=== PATIENT | female | born 1960 | race Caucasian/White ===

== ENCOUNTER → 2017-07-23 | Day surgery (SDC) | payer OTHER, SELFPAY ==
[2017-07-22 15:33] VITALS: BMI 28.7
[~2017-07-23] MED LIST: Albuterol Sulfate 1.25 MG/3 ML NEB ONE; Diprivan 40 ML ONE; Fentanyl 100 MCG/2 ML VIAL ONE; Isoproterenol 0.2 MG/1 ML AMP ONE; Labetalol HCl 100 MG/20 ML VIAL ONE; Midazolam HCl 2 mg/2 ml Vial ONE; Ondansetron HCl/PF 4 MG/2 ML Vial IVP PRN; Ondansetron HCl/PF 4 MG/2 ML Vial ONE; Promethazine HCl 25 MG/ML VIAL IM/IV PRN; Propofol 200 MG/20 ML VIAL ONE; Propofol 500 MG/50 ML VIAL ONE
--- NOTE | 2017-07-23 21:57 | CCLSPC ---
DATE OF PROCEDURE: 07/23/2017 ELECTROPHYSIOLOGY STUDY AND RADIOFREQUENCY ABLATION REPORT REFERRING PHYSICIAN: Les Kulkarni M.D. REASON FOR PROCEDURE: Mrs. Le is a 57-year-old female with prior history of SVT. She is here for radiofrequency ablation. PROCEDURE: The patient received propofol per Anesthesia provider. After adequate level of sedation achieved, the left and right femoral veins were prepped, draped and anesthetized using subcutaneous lidocaine. The left femoral vein was accessed x2 with multipurpose needle under ultrasound guidanc e and an 8 and 6 Pakistani sheaths were introduced. Through these a decapolar 7 Pakistani catheter and oc tapolar 6 Pakistani catheter was advanced to the right ventricular, right atrium, His bundle and the CS area. A comprehensive EP study was performed with the following findings. The baseline cycle length was 626 milliseconds, OK 187, QRS 71, QT 341, AH 97, HV 48 milliseconds. The sinus node recovery time was 1060 milliseconds, corrected 190 milliseconds in normal range. AV Wenckebach cycle length was 320 milliseconds. AV Wenckebach cycle length was less than 370 millisec onds. The ventricular overdrive pacing, we were able to induce SVT with induced wide complex SVT wh ich appears to be AV isaac reentrant tachycardia with ------ tachycardia, ventricular overdrive paci ng terminated with tachyarrhythmia. Following that, atrial extrastimulus testing was performed reve aling AV isaac ERP of 100/220 milliseconds. There is dual AV isaac physiology is present. AVNRT wa s also induced on jump also suggestive of AVNRT as etiology of tachycardia. The right bundle ablati on is seen. Following that, the right femoral vein was accessed with 8-Pakistani sheath was introduced and 4 mm ablation catheter was advanced to the right atrium, His bundle with CS area. Three map of these areas were obtained. His bundles were also mapped. Following that with the slow pathway are a, determine by electrogram morphology as stress voltage mapping, multiple ablations were delivered, a total of 4 house were placed. Junctional beats were observed during ablation and no AV block was seen. Following that repeat induction maneuvers were ------ AV isaac reentrant tachycardia. Also Wenckebach cycle length did not significantly change, but excess to my testing at this point did not demonstrate residual slow pathway conduction. These maneuvers repeated on isuprel and no evidence of inducibility or slow pathway conduction was s een. Additional arrhythmia induction was attempted, which was negative. No atrial flutter or other arrhythmias were induced either. CONCLUSION: 1. Successful induction if AV isaac reentrant tachycardia with cycle length of 380 milliseconds wit h clear VA-VA response and short VA time proving ---. 2. Presence of dual AV isaac pathway. 3. Slow pathway ablation performed eliminating inducibility AV isaac reentrant tachycardia and slow pathway conduction. 4. No other arrhythmias noted. 5. Normal sinus isaac function. 6. Normal AV isaac function seen. 7. Right bundle ablation with tachy pacing is seen. 8. No induction on isuprel. PLAN: Routine postop care and followup. POS: [facility]
== END ==
LOC: CCL 09:47
PROVIDERS: ATTEND Internal Medicine Cardiovascular Disease
DX: I47.1 Supraventricular tachycardia (principal); F17.200 Nicotine dependence, unspecified, uncomplicated; I10 Essential (primary) hypertension; Z88.0 Allergy status to penicillin; Z90.49 Acquired absence of other specified parts of digestive tract; Z98.890 Other specified postprocedural states; Z86.73 Personal history of transient ischemic attack (TIA), and cerebral infarction without residual deficits
CPT/HCPCS: 76942; 93005; 93010; 93613; 93623; 93653; C1730; C1769; J1644; J2250; J2405; J2704; J3010

== ENCOUNTER 2017-09-22 22:25 | Emergency (ER) | payer SELFPAY ==
[2017-09-22] MEDS ORDERED: Sulfameth/Trimethoprim DS 800-160mg TAB ONE (23:32)
== END 2017-09-22 23:42 | disposition home or self-care (01) ==
LOC: ERS 22:25
DX: L03.213 Periorbital cellulitis (principal); I10 Essential (primary) hypertension; J44.9 Chronic obstructive pulmonary disease, unspecified; F32.9 Major depressive disorder, single episode, unspecified; F17.210 Nicotine dependence, cigarettes, uncomplicated
CPT/HCPCS: 99406

== ENCOUNTER 2017-11-23 09:55 | Emergency (ER) | payer SELFPAY ==
--- NOTE | 2017-11-23 10:44 | RAD ---
PORTABLE CHEST 1 VIEW: Date: 11/23/17 HISTORY: COPD. Flu-like symptoms. Cough. Shortness of breath. FINDINGS: Comparison made with exam of 07/06/17. The heart size is normal. The lungs are well expanded without confluent areas of consolidation, pneum othorax, or pleural effusions. IMPRESSION: No radiographic evidence of acute cardiopulmonary process. POS: [facility]
[2017-11-23 10:46] LABS: #Monocytes 0.9 thou/uL (0.11-0.59); #Neutrophils 7.5 thou/uL (1.40-6.50); %Basophils 0.4 % (0.0-1.0); %Eosinophils 0.5 % (0.0-10.0); %Lymphocytes 10.8 % (21.0-51.0); %Monocytes 9.8 % (0.0-10.0); %Neutrophils 78.5 % (42.0-75.0); Hemoglobin 15.8 g/dL (12.0-16.0); Mean Corpuscular HGB CONC 32.2 g/dL (32.0-36.0); Mean Corpuscular Hemoglobin 31.3 pg (27.0-31.0); Mean Corpuscular Volume 97.2 fl (81.0-99.0); Mean Platelet Volume 7.4 fL (7.4-10.4); Platelet Count 309 thou/uL (130-400); RBC Distribution Width 12.4 % (11.5-14.5); Red Blood Cell (RBC) Count 5.05 mill/uL (4.20-5.40); White Blood Cell (WBC) Count 9.5 thou/uL (4.8-10.8)
[2017-11-23 11:09] LABS: ALT (SGPT) 32 U/L (8-55); AST (SGOT) 31 U/L (5-34); Albumin 4.2 g/dL (3.5-5.0); Alkaline Phosphatase 122 U/L (40-150); Anion Gap 13 mmol/L (10-20); BUN (Urea Nitrogen) 9 mg/dL (9.8-20.1); Bilirubin, Total 0.7 mg/dL (0.2-1.2); Calc. Creatinine Clearance 0 mL/min (70-130); Calcium 9.3 mg/dL (7.8-10.44); Carbon Dioxide 25 mmol/L (22-29); Chloride 104 mmol/L (98-107); Estimated GFR-MDRD Greater than 90; Glucose 97 mg/dL (70-105); Potassium 3.9 mmol/L (3.5-5.1); Protein, Total 8.2 g/dL (6.0-8.3); Sodium 138 mmol/L (136-145)
[2017-11-23 11:12] LABS: CKMB 2.1 ng/mL (0-6.6); Troponin I Less than 0.010 ng/mL (< 0.028)
[2017-11-23] MEDS ORDERED: methylPREDNISolone Sod Succ/PF 125 MG/2 ML VIAL ONE (14:49)
[2017-11-23] MEDS ORDERED: Water For Inject, Bacteriostat 30 ML ONE (14:49)
[2017-11-23] MEDS ORDERED: Magnesium Sulfate 2 GM/100 ML BAG ONE (14:50)
--- NOTE | 2017-11-28 14:24 | EKG ---
Test Reason : Blood Pressure : / mmHG Vent. Rate : 098 BPM Atrial Rate : 098 BPM P-R Int : 152 ms QRS Dur : 124 ms QT Int : 376 ms P-R-T Axes : 047 -81 039 degrees QTc Int : 480 ms Sinus rhythm with Premature atrial complexes Left axis deviation Right bundle branch block Abnormal ECG No ST elevation/FL Confirmed by ALEJANDRO COLON, EMMA ([id number]), television news video editor HERNAN PINEDA ([id number]) on 11/28/2017 2:23:57 PM Referred By: Confirmed By:EMMA ALLEN MD
== END 2017-11-23 17:51 | disposition home or self-care (01) ==
LOC: ERS 09:55
DX: J44.1 Chronic obstructive pulmonary disease with (acute) exacerbation (principal); I10 Essential (primary) hypertension; F32.9 Major depressive disorder, single episode, unspecified; F17.210 Nicotine dependence, cigarettes, uncomplicated; Z71.6 Tobacco abuse counseling
CPT/HCPCS: 71045; 80053; 82553; 84484; 85025; 93005; 94640; 94760; 96365; 96375; 99406; J2930; J3475; J7620

== ENCOUNTER 2018-06-22 07:34 | Emergency (ER) | payer OTHER, SELFPAY ==
[2018-06-22] MEDS ORDERED: HYDROcodone/Acetaminophen 5/325 mg Tablet ONE (08:38)
--- NOTE | 2018-06-22 10:03 | RAD ---
FRONTAL VIEW PELVIS: Date: 06/22/18 INDICATION: Fall with right-sided hemipelvic pain. FINDINGS: Hip joints are maintained bilaterally. There is no evidence of fracture or dislocation of the pelvis. Punctate calcifications seen overlying the right abdomen. IMPRESSION: 1. No acute pelvic fracture. 2. Punctate right abdominal calcifications, not fully characterized on the basis of this exam. POS: [facility]
--- NOTE | 2018-06-22 10:06 | RAD ---
3 VIEW LUMBAR SPINE SERIES: Date: 06/22/18 INDICATION: Fall with right-sided pain. Reference made to 01/10/09. FINDINGS: There is multilevel end plate degenerative change, which is most pronounced at L3-4, with moderate si ze osteophytosis, end plate sclerosis, and disc space narrowing. No significant subluxation. There is a minimal degree of superior end plate height loss of L3. There are punctate densities of the right abdomen, not further localized, although these do overlie t he right renal shadow and therefore may reflect nephrolithiasis. IMPRESSION: 1. Minimal superior L3 end plate deformity, age-indeterminate. If there is acute pain referable to t his region, consider follow-up with MRI as clinically necessary. 2. Multilevel degenerative change of lumbar spine. 3. Calcifications of the right abdomen, which could reflect nephrolithiasis. POS: [facility]
--- NOTE | 2018-06-23 14:26 | EKG ---
Test Reason : ER Blood Pressure : / mmHG Vent. Rate : 090 BPM Atrial Rate : 090 BPM P-R Int : 140 ms QRS Dur : 112 ms QT Int : 366 ms P-R-T Axes : 052 -59 040 degrees QTc Int : 447 ms Sinus rhythm with occasional Premature ventricular complexes Left axis deviation Right bundle branch block Abnormal ECG Confirmed by PATTY COLON, NEEMA ([id number]), editorial specialist BRADLEY RAMIREZ ([id number]) on 06/23/2018 2:26:10 PM Referred By: Confirmed By:NEEMA BRAMBILA MD
== END 2018-06-22 10:50 | disposition home or self-care (01) ==
LOC: ERS 07:34
DX: S30.0XXA Contusion of lower back and pelvis, initial encounter (principal); I10 Essential (primary) hypertension; J44.9 Chronic obstructive pulmonary disease, unspecified; Z86.73 Personal history of transient ischemic attack (TIA), and cerebral infarction without residual deficits; F17.210 Nicotine dependence, cigarettes, uncomplicated; Z79.899 Other long term (current) drug therapy; W19.XXXA Unspecified fall, initial encounter
CPT/HCPCS: 72100; 72170; 93005

== ENCOUNTER 2018-08-24 22:21 | Emergency (ER) | payer SELFPAY ==
[2018-08-24] MEDS ORDERED: Acetaminophen 500 MG TAB ONE (23:58)
[2018-08-25] MEDS ORDERED: cloNIDine 0.1 MG TAB ONE (00:05)
--- NOTE | 2018-08-25 00:15 | RAD ---
CERVICAL SPINE FOUR VIEWS: 08/24/18 COMPARISON: 02/19/06 HISTORY: Pain. FINDINGS: Base of skull view demonstrates an intact odontoid process. On the open mouth projection, lateral mas ses of C1 and C2 have appropriate articular. On the AP projection, there are degenerative changes of the facets. On the lateral projection, there is diffuse bone demineralization. Vertebral body height is maintaine d and there is no evidence of fracture. Note, the entire cervical spine is not assessed. On the lateral projection, the cervical spine is bes t demonstrated from C1 through C6. Evaluation of the remainder of the cervical spine and cervicothora cic junction is limited. There is retrolisthesis of C4 upon C5 and C5 upon C6. IMPRESSION: No obvious fractures. Presumed chronic changes. Nonemergent cervical spine is recommended for better interrogation. POS: [facility]
[2018-08-25 00:26] LABS: CKMB 3.8 ng/mL (0-6.6); Troponin I Less than 0.010 ng/mL (< 0.028)
--- NOTE | 2018-08-28 23:34 | EKG ---
Test Reason : Blood Pressure : / mmHG Vent. Rate : 099 BPM Atrial Rate : 099 BPM P-R Int : 154 ms QRS Dur : 128 ms QT Int : 370 ms P-R-T Axes : 079 270 068 degrees QTc Int : 474 ms Normal sinus rhythm Right bundle branch block Abnormal ECG Confirmed by MELINA BYRD MD ([id number]), technical writer and editor BRADLEY RAMIREZ ([id number]) on 08/28/2018 11:33:36 PM Referred By: Confirmed By:MELINA BYRD MD
== END 2018-08-25 00:39 | disposition home or self-care (01) ==
LOC: ERS 22:21
DX: M54.12 Radiculopathy, cervical region (principal); I10 Essential (primary) hypertension; F17.210 Nicotine dependence, cigarettes, uncomplicated; J44.9 Chronic obstructive pulmonary disease, unspecified; Z71.6 Tobacco abuse counseling; Z79.899 Other long term (current) drug therapy
CPT/HCPCS: 36415; 72040; 82553; 84484; 93005; 99406

== ENCOUNTER 2018-09-16 13:17 | Inpatient (IN) | payer SELFPAY ==
[2018-09-16 13:53] LABS: Hemoglobin 15.3 g/dL (12.0-16.0); Mean Corpuscular HGB CONC 32.3 g/dL (32.0-36.0); Mean Corpuscular Volume 95.9 fL (78.0-98.0); Mean Platelet Volume 7.3 fL (7.4-10.4); Platelet Count 439 thou/uL (130-400); RBC Distribution Width 12.4 % (11.5-14.5); Red Blood Cell (RBC) Count 4.93 mill/uL (4.20-5.40); White Blood Cell (WBC) Count 20.4 thou/uL (4.8-10.8)
[2018-09-16 14:09] LABS: Band 3 % (5-11); Lymphocytes 7 % (21-51); MDiff Complete? YES; Monocytes 5 % (0-10); Neutrophil 81 % (42-75); RBC Morphology Normal; Reactive Lymphocytes 4 % (0-10)
[2018-09-16] MEDS ORDERED: Albuterol Sulfate 2.5 mg/3 ml Neb ONE ×2 (14:12→14:20)
[2018-09-16 14:13] LABS: ALT (SGPT) 28 U/L (8-55); AST (SGOT) 25 U/L (5-34); Albumin 3.7 g/dL (3.5-5.0); Alkaline Phosphatase 147 U/L (40-150); Anion Gap 16 mmol/L (10-20); BUN (Urea Nitrogen) 9 mg/dL (9.8-20.1); Bilirubin, Total 0.8 mg/dL (0.2-1.2); Calc. Creatinine Clearance 0 mL/min (70-130); Calcium 9.3 mg/dL (7.8-10.44); Carbon Dioxide 30 mmol/L (22-29); Chloride 99 mmol/L (98-107); Estimated GFR-MDRD Greater than 90; Globulin 4.7 g/dL (2.4-3.5); Glucose 110 mg/dL (70-105); Protein, Total 8.4 g/dL (6.0-8.3); Sodium 142 mmol/L (136-145)
[2018-09-16] MEDS ORDERED: Azithromycin 500 MG VIAL ONE ×2 (14:15→14:16)
[2018-09-16] MEDS ORDERED: cefTRIAXone\\ROCEPHIN 2 GM VIAL ONE (14:15)
[2018-09-16 14:25] LABS: Potassium 2.5 mmol/L (3.5-5.1)
[2018-09-16] MEDS ORDERED: Pot Chloride/Pot Bicarb/Cit Ac 25 mEq Effervescent Tablet ONE (14:43)
--- NOTE | 2018-09-16 14:51 | RAD ---
CHEST ONE VIEW PORTABLE: History: 58-year-old female with history of productive cough and shortness of breath for three days, worsening . Comparison: 11-23-17 FINDINGS: Monitor leads overlie the chest. Patchy alveolar and interstitial parenchymal changes in the right lo wer lung zone with some blunting of the right costophrenic angle. Focal elevation of both hemidiaphra gms, worse on the left side, and somewhat worse than the prior study. No significant acute process in the left chest. IMPRESSION: Evidence for right lower lobe pneumonia. Minimal stable focal bilateral hemidiaphragm elevation. Athe rosclerosis of the aorta. POS: [facility]
[2018-09-16 16:44] LABS: CKMB 1.9 ng/mL (0-6.6); Troponin I Less than 0.010 ng/mL (< 0.028)
--- NOTE | 2018-09-16 17:23 | CT ---
NONCONTRAST HEAD CT: 09/16/18 HISTORY: Headache COMPARISON: 09/28/13. FINDINGS: No parenchymal hemorrhage. No extra-axial hematoma. No midline shift. Basilar cisterns are patent. Br ain volume is age appropriate. Cortical tillman-white matter differentiation is preserved. Ventricles and sulci are patent and symmetric. There are confluent white matter hypodensities which a re nonspecific. Calvarium is intact. Adequate aeration of the mastoid air cells. Partial opacification of the right m axillary sinus and right ethmoid air cells. IMPRESSION: Extensive white matter hypodensities which are atypical for a patient of this age. Differential consi derations do include chronic small vessel ischemic change. White matter infarct or other etiologies c annot be excluded. Pre and postcontrast brain MRI would be beneficial. POS: [facility]
[2018-09-16 17:34] LABS: Troponin I Less than 0.010 ng/mL (< 0.028)
--- NOTE | 2018-09-16 17:38 | HP ---
DATE OF ADMISSION: 09/16/2018 PRIMARY CARE PROVIDER: Freya Richards NP. CHIEF COMPLAINT: Cough. HISTORY OF PRESENT ILLNESS: Ms. Le is a pleasant 58-year-old lady who was seen at [facility] on 09/16/2018. She reports that over the last 3 days, she has had cough. The cough is productive of light green to dark green sputum. She also reports that it is occasionally bloody green sputum. She also reports h eadache over the right side of her head. She denies any fevers. She lives alone with her cat. 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 She does not recall coming in contact with any sick pe ople, but is unsure because of her profession. She is unable to describe the right-sided headache in greater detail. She does report that she has been short of breath over the last 3 days. The shortn ess of breath is worse with exertion. She also reports vomiting when she attempts to eat. She also reports wheezing. She denies any chest pain. She denies any fevers or chills. She did not receive the influenza vaccine this year. She reports receiving the pneumococcal vaccine about 5 yea rs ago. REVIEW OF SYSTEMS: All other systems reviewed and found to be negative. PAST MEDICAL HISTORY: Chronic hepatitis C, tobacco abuse disorder, hypertension, COPD, CVA in 2012, supraventricular tachycardia and eczema. PAST SURGICAL HISTORY: Ablation for SVT, appendectomy, basal cell carcinoma removal. SOCIAL HISTORY: The patient was smoking 3 packs of cigarettes a day until a few months ago. She has now decreased it to half a pack of cigarettes a day. She reports that she has not had any cigarette s over the last 3 days. FAMILY HISTORY: Significant for COPD and stroke in her mother. CODE STATUS: I discussed her code status. She is DNI. ALLERGIES: PENICILLIN. CURRENT MEDICATIONS: Clonidine 0.1 mg 2 times a day, diltiazem 360 mg 4 times a day, Symbicort 2 puf fs 2 times a day, Proventil HFA 90 mcg 2 puffs as needed, aspirin 81 mg daily. PHYSICAL EXAMINATION: GENERAL: Ms. Le is awake and alert, not in acute distress. VITAL SIGNS: Blood pressure is 164/92, pulse 118, respiratory rate 20 and oxygen saturation 95% on 2 liters of oxygen. She is afebrile. When she presented to the emergency room, she had a pulse of 12 4 and respiratory rate of 28. EYES: No scleral icterus. No conjunctival pallor. ENT: Dry mucosal membranes. No oropharyngeal erythema or exudates. NECK: Supple, nontender, trachea is midline. RESPIRATORY: Accessory muscles of breathing are active. Chest wall movements are symmetric bilatera lly. LUNGS: Reveals diffuse expiratory wheeze. CARDIOVASCULAR: S1 and S2 are heard, tachycardic and regular. Peripheral pulses palpable. No carot id bruit, no pericardial rub. No palpable right temporal artery, no tenderness over the area of the right temporal artery. ABDOMEN: Soft, nontender, bowel sounds are heard, no hepatomegaly, no splenomegaly. NEUROLOGIC: Cranial nerves II-XII intact. Deep tendon reflexes 2+. Of note, visual acuity is prese rved bilaterally. MUSCULOSKELETAL: No reproducible tenderness over the right side of the head. Power is 5/5 in all 4 extremities. SKIN: Eczematous changes present. LYMPHATIC: No cervical lymphadenopathy. PSYCHIATRIC: The patient is anxious, oriented to person, place and time. LABORATORY DATA: Ms. Le's labs and investigations were reviewed. I reviewed her electrocardiogram , which shows sinus tachycardia, no ST changes to suggest an acute coronary syndrome. I also reviewe d her chest x-ray, which shows a right lower lobe infiltrate. She has leukocytosis with 20,400 white cells, of which 81% are neutrophils and 3% bands, normal hemoglobin, elevated platelet count of 439, 000, normal sodium, decreased potassium of 2.5, elevated carbon dioxide of 30, normal anion gap of 16 , normal lactic acid level of 1.9, normal AST, normal ALT, normal alkaline phosphatase and normal tot al bilirubin. Troponin I is less than 0.010. CK level is normal. ASSESSMENT AND PLAN: Ms. Le is a pleasant 58-year-old lady who was seen at [facility] on 09/16/2018. Her problem list includes: 1. Pneumonia: Ms. Le is presenting with community-acquired pneumonia. She has received ceftriaxo ne and azithromycin, which I will continue. She will be admitted to the hospital for further managem ent. Pulmonary Service will be consulted for opinion and help with management. We will also start h er on p.r.n. bronchodilators. 2. Headache: The patient has new onset unilateral headaches. I will check CT scan of the brain to rule out intracranial bleed, etc. 3. Hypokalemia: We will replace potassium and recheck. 4. Sepsis: The patient's presentation meets the criteria for sepsis, suspected source of infection in the lung. She will receive intravenous fluid resuscitation as well as intravenous antibiotics. 5. Tobacco abuse: The patient has been counseled regarding tobacco cessation, we will start her on nicotine replacement therapy. 6. Supraventricular tachycardia: The patient is currently in sinus tachycardia. Many thanks for allowing me to participate in your patient's care. Please feel free to contact me wi th any questions or concerns. LEVEL OF RISK: High. LEVEL OF COMPLEXITY: High.
[2018-09-16] MEDS: Acetaminophen 325 MG TAB PO PRN (18:35)
[2018-09-16] MEDS ORDERED: hydrALAZINE 20 MG/ML VIAL SLOW IVP PRN (19:02)
[2018-09-16] MEDS: cloNIDine 0.1 MG TAB PO SCH (20:06)
[2018-09-16 20:09] LABS: Troponin I Less than 0.010 ng/mL (< 0.028)
[2018-09-16] MEDS: Nicotine 14 MG PATCH TD SCH (20:35)
[2018-09-16] MEDS: Melatonin 3 MG TAB PO PRN (23:45)
[2018-09-16] MEDS: Diabetic Tussin 200 MG/10 ML UDCUP PO PRN (23:45)
[2018-09-16] MEDS: Aspirin/APAP/Caffeine Tab (Excedrin Migraine) PO PRN (23:45)
[2018-09-17 04:41] LABS: #Eosinphils 0.1 thou/uL (0.0-0.7); #Lymphocytes 1.5 thou/uL (1.20-3.40); #Monocytes 1.1 thou/uL (0.11-0.59); #Neutrophils 10.1 thou/uL (1.40-6.50); %Basophils 0.4 % (0.0-1.0); %Eosinophils 0.5 % (0.0-10.0); %Lymphocytes 11.9 % (21.0-51.0); %Monocytes 8.7 % (0.0-10.0); %Neutrophils 78.6 % (42.0-75.0); Hemoglobin 12.9 g/dL (12.0-16.0); Mean Corpuscular Volume 97.1 fL (78.0-98.0); Mean Platelet Volume 7.3 fL (7.4-10.4); Platelet Count 352 thou/uL (130-400); RBC Distribution Width 12.5 % (11.5-14.5); Red Blood Cell (RBC) Count 4.16 mill/uL (4.20-5.40); White Blood Cell (WBC) Count 12.9 thou/uL (4.8-10.8)
[2018-09-17 04:56] LABS: Anion Gap 11 mmol/L (10-20); BUN (Urea Nitrogen) 6 mg/dL (9.8-20.1); Calc. Creatinine Clearance 127 mL/min (70-130); Calcium 8.4 mg/dL (7.8-10.44); Carbon Dioxide 30 mmol/L (22-29); Chloride 101 mmol/L (98-107); Estimated GFR-MDRD Greater than 90; Glucose 99 mg/dL (70-105); Sodium 139 mmol/L (136-145)
[2018-09-17 04:58] LABS: Potassium 2.8 mmol/L (3.5-5.1)
[2018-09-17] MEDS: Potassium Chloride 10 MEQ TAB PO SCH ×4 (05:45→12:43)
[2018-09-17] MEDS: cloNIDine 0.1 MG TAB PO SCH ×2 (10:08→20:46)
[2018-09-17] MEDS: Diabetic Tussin 200 MG/10 ML UDCUP PO PRN ×2 (10:10→22:17)
[2018-09-17 11:09] VITALS: BMI 27.5
--- NOTE | 2018-09-17 12:19 | PDOC.PN ---
- Subjective Encounter Start Date: 09/17/18 Encounter Start Time: 08:40 Pt seen for followup re: community acquired pneumonia. Denies chest pain. Has ongoing headache on right side. No fevers. - Objective Resuscitation Status: Resuscitation Status DNI:No Intubation Vital Signs & Weight: Vital Signs (12 hours) Temp Pulse Resp BP BP Pulse Ox 09/17/18 11:00 110 H 22 H 145/91 H 95 09/17/18 10:08 164/107 H 09/17/18 09:24 100 20 09/17/18 08:00 98 09/17/18 07:29 98.7 F 88 20 160/109 H 97 09/17/18 05:53 94 20 140/91 H 95 09/17/18 04:27 98.2 F 84 15 140/91 H 95 Weight Admit Weight 148 lb Weight 145 lb 8 oz I&O: 09/16/18 09/17/18 09/18/18 06:59 06:59 06:59 Intake Total 370 Output Total 450 Balance -80 Result Diagrams: 09/17/18 04:19 09/17/18 04:19 Phys Exam - Physical Examination Constitutional: NAD HEENT: moist MMs, sclera anicteric, oral pharynx no lesions, 2+ tonsils Neck: no nodes, no JVD, supple, full ROM Respiratory: no rales, no rhonchi, wheezing present Cardiovascular: RRR, no rub S1, S2 Gastrointestinal: soft, non-tender, no distention, positive bowel sounds Neurological: moves all 4 limbs Psychiatric: normal affect, A&O x 3 Dx/Plan (1) Pneumonia Code(s): J18.9 - PNEUMONIA, UNSPECIFIED ORGANISM Status: Acute Comment: clinically better, continue IV antibiotics as below (2) Hypokalemia Code(s): E87.6 - HYPOKALEMIA Status: Acute (3) Headache Code(s): R51 - HEADACHE Status: Acute Comment: pt reports headache in right temporal region. Will consult CV surgery for temporal artery biopsy. C-RP is elevated. (4) Chronic hepatitis C Code(s): B18.2 - CHRONIC VIRAL HEPATITIS C Status: Chronic Comment: stable (5) Hypertension Code(s): I10 - ESSENTIAL (PRIMARY) HYPERTENSION Status: Chronic Comment: continue home medications, monitor vital signs and titrate antihypertensives as needed - Plan * . Review of Systems - Review of Systems Constitutional: negative: fever, chills, sweats, weakness, malaise Respiratory: Cough, SOB with Excertion, Sputum. negative: Dry, Shortness of Breath, Hemoptysis, Pleuritic Pain, Wheezing Cardiovascular: negative: chest pain, palpitations, orthopnea, paroxysmal nocturnal dyspnea, edema, light headedness Gastrointestinal: negative: Nausea, Vomiting, Abdominal Pain, Diarrhea, Constipation, Melena, Hematochezia Genitourinary: negative: Dysuria, Frequency, Incontinence, Hematuria, Retention Musculoskeletal: negative: Neck Pain, Shoulder Pain, Arm Pain, Back Pain, Hand Pain, Leg Pain, Foot Pain - Medications/Allergies Allergies/Adverse Reactions: Allergies Allergy/AdvReac Type Severity Reaction Status Date / Time Penicillins Allergy Rash Verified 07/22/17 15:33 Medications: Current Medications Acetaminophen (Tylenol) 650 mg PO Q4H PRN PRN Reason: Headache/Fever/Mild Pain (1-3) Last Admin: 09/16/18 18:35 Dose: 650 mg Acetaminophen/Aspirin/Caffeine (Excedrin Migraine) 1 tab PO Q8H PRN PRN Reason: MIGRAINES Last Admin: 09/16/18 23:45 Dose: 1 tab Albuterol/Ipratropium (Duoneb) 3 ml NEB [id number] PRN PRN Reason: SOB &/or Wheezing Last Admin: 09/17/18 09:24 Dose: 3 ml Clonidine (Catapres) 0.1 mg PO BID [facility] Last Admin: 09/17/18 10:08 Dose: 0.1 mg Diltiazem HCl (Cardizem) 30 mg PO QID [facility] Last Admin: 09/17/18 10:08 Dose: 30 mg Guaifenesin (Robitussin Sf) 200 mg PO Q4H PRN PRN Reason: Congestion Last Admin: 09/17/18 10:10 Dose: 200 mg Hydralazine HCl (Apresoline) 10 mg SLOW IVP Q4H PRN PRN Reason: .SBP>180 Azithromycin 500 mg/ Sodium (Chloride) 250 mls @ 250 mls/hr IVPB 1400 RANGEL Ceftriaxone Sodium 1 gm/ (Sodium Chloride) 100 mls @ 200 mls/hr IVPB 1500 RANGEL Melatonin (Melatonin) 3 mg PO HSPRN PRN PRN Reason: Insomnia Last Admin: 09/16/18 23:45 Dose: 3 mg Nicotine (Nicoderm Patch) 14 mg TD Q24HR RANGEL Last Admin: 09/16/18 20:35 Dose: 14 mg
[2018-09-17] MEDS ORDERED: Potassium Chloride 20 MEQ TAB PO SCH (12:30)
[2018-09-17] MEDS: Aspirin/APAP/Caffeine Tab (Excedrin Migraine) PO PRN ×2 (12:42→20:46)
[2018-09-17] MEDS ORDERED: predniSONE 20 MG TAB PO SCH (13:15)
[2018-09-17] MEDS ORDERED: Azithromycin 500 MG in Sodium Chloride 0.9% 250 ML 250 ML IVPB SCH (14:00)
[2018-09-17] MEDS ORDERED: cefTRIAXone\\ROCEPHIN 1 GM in Sodium Chloride 0.9% 100 ML IVPB SCH (15:00)
[2018-09-17] MEDS ORDERED: methylPREDNISolone Sod Succ/PF 125 MG/2 ML VIAL IVP SCH (16:30)
[2018-09-17 16:43] LABS: Potassium 3.2 mmol/L (3.5-5.1)
--- NOTE | 2018-09-17 18:23 | CON ---
DATE OF CONSULTATION: 09/17/2018 HISTORY: Ms. Le is a 58-year-old female. She had a large malignant skin cancer resected from left posterior chest several years back. She is a heavy smoker. She presented with complaints of cough and chest congestion. PAST MEDICAL HISTORY: Remarkable for, 1. Hepatitis C. 2. Hypertension. 3. Chronic obstructive pulmonary disease. 4. History of cerebrovascular accident. 5. History of supraventricular tachycardia. 6. History of an supraventricular tachycardia ablation. 7. History of an appendectomy. SOCIAL HISTORY: She is 2-3 pack a day smoker. She started feeling bad couple of weeks ago and cut back to half pack a day and then quit smoking over the last 4 days. FAMILY HISTORY: Positive for vascular disease and COPD. ALLERGIES: She reports allergy to PENICILLIN. She is on Catapres, Cardizem, Symbicort, Proventil and baby aspirin. REVIEW OF SYSTEMS: 10 point review of systems completed, otherwise negative. PHYSICAL EXAMINATION: GENERAL: She presented with complaints of cough and chest congestion. VITALS: She is afebrile, heart rate 75, respiratory rate is 18, oximetry is 97 on room air, blood pressure 127/99. HEENT: Pupils are equal. Sclerae is anicteric. She appears much older than her age. NECK: Supple, no lymphadenopathy. LUNGS: Scar in her back is well healed. She has diffuse coarse wheezes. HEART: Regular rhythm, no S3. ABDOMEN: Soft and nontender. EXTREMITIES: Without clubbing, cyanosis, or edema. She has skin care changes of eczema all over her body including her left forehead. She has multiple lesions on her right arm that look like skin cancer now. IMPRESSION: 1. Chronic obstructive pulmonary disease exacerbation. 2. Multiple new skin cancers in the right upper extremity. I asked her if she would consent to an evaluation for these and she never would tell me Yes. These do need to be addressed at some point in time. I have explained to her why. 3. Her chest radiograph was reviewed. She has an alveolar infiltrate in her right base. Her current antimicrobial therapy should be appropriate. We will give her nebulized treatments routinely q.4 hours. I will be happy to follow with the other physicians caring for her. This is a 50 minute consult, with greater than 50% of time spent on unit in coordination of care. YOEL
[2018-09-17] MEDS: Nicotine 14 MG PATCH TD SCH (20:53)
[2018-09-17] MEDS: Melatonin 3 MG TAB PO PRN (22:16)
[2018-09-18] MEDS: Diabetic Tussin 200 MG/10 ML UDCUP PO PRN (02:33)
[2018-09-18] MEDS: Acetaminophen 325 MG TAB PO PRN (02:52)
[2018-09-18 04:42] LABS: #Lymphocytes 0.5 thou/uL (1.20-3.40); #Monocytes 0.2 thou/uL (0.11-0.59); #Neutrophils 9.3 thou/uL (1.40-6.50); %Basophils 0.1 % (0.0-1.0); %Eosinophils 0.1 % (0.0-10.0); %Lymphocytes 5.4 % (21.0-51.0); %Neutrophils 92.4 % (42.0-75.0); Hemoglobin 12.8 g/dL (12.0-16.0); Mean Corpuscular HGB CONC 32.2 g/dL (32.0-36.0); Mean Corpuscular Hemoglobin 31.4 pg (27.0-31.0); Mean Corpuscular Volume 97.5 fL (78.0-98.0); Mean Platelet Volume 7.4 fL (7.4-10.4); Platelet Count 372 thou/uL (130-400); RBC Distribution Width 12.4 % (11.5-14.5); Red Blood Cell (RBC) Count 4.08 mill/uL (4.20-5.40); White Blood Cell (WBC) Count 10.1 thou/uL (4.8-10.8)
[2018-09-18 05:02] LABS: Anion Gap 14 mmol/L (10-20); BUN (Urea Nitrogen) 9 mg/dL (9.8-20.1); Calc. Creatinine Clearance 118 mL/min (70-130); Carbon Dioxide 27 mmol/L (22-29); Chloride 103 mmol/L (98-107); Estimated GFR-MDRD Greater than 90; Glucose 160 mg/dL (70-105); Potassium 3.5 mmol/L (3.5-5.1); Sodium 140 mmol/L (136-145)
[2018-09-18] MEDS ORDERED: predniSONE 20 MG TAB PO SCH (08:00)
[2018-09-18] MEDS: Morphine 2 MG/ML SYRINGE SLOW IVP PRN ×2 (08:47→16:53)
[2018-09-18] MEDS: cloNIDine 0.1 MG TAB PO SCH ×2 (08:47→20:57)
--- NOTE | 2018-09-18 10:04 | PRG ---
DATE OF SERVICE: 09/18/2018 SUBJECTIVE: I have been consulted to see her for temporal artery biopsy. Please see other notes for details. She notes a 5-day history of severe right-sided headache, not associated with visual parker es. She usually has headaches in the posterior aspect of her head, so this is a new of type of heada jessenia that she has. No previous known history of arteritis. PHYSICAL EXAMINATION: She has psoriasis skin changes to the forehead and palpable soreness to the [employer]. ASSESSMENT: Headache, rule out temporal arteritis. PLAN: Could perform temporal artery biopsy, would not be until Thursday afternoon. We will defer unti l after the MRI is done.
[2018-09-18] MEDS ORDERED: Gadobenate Dimeglumine 529 MG/1 ML (20ML VIAL) ONE (10:25)
--- NOTE | 2018-09-18 14:21 | PDOC.PN ---
- Subjective Encounter Start Date: 09/18/18 Encounter Start Time: 10:00 Pt seen for followup re: pneumonia. c/o ongoing right temporal headache. No fevers. Cough better. No nausea or vomiting - Objective Resuscitation Status: Resuscitation Status DNI:No Intubation MAR Reviewed: Yes Vital Signs & Weight: Vital Signs (12 hours) Temp Pulse Resp BP BP Pulse Ox 09/18/18 13:47 96 16 98 09/18/18 11:44 93 16 158/93 H 09/18/18 08:47 157/101 H 09/18/18 08:00 96 09/18/18 07:59 98.0 F 89 20 153/99 H 97 09/18/18 06:33 96 09/18/18 06:31 74 16 96 09/18/18 03:50 97.9 F 88 18 149/81 H 97 Weight Admit Weight 148 lb Weight 145 lb 8 oz I&O: 09/17/18 09/18/18 09/19/18 06:59 06:59 06:59 Intake Total 370 1480 Output Total 450 420 Balance -80 1060 Result Diagrams: 09/19/18 04:27 09/19/18 04:27 EKG Reviewed by me: Yes (Tele: NSR) Phys Exam - Physical Examination Constitutional: NAD HEENT: moist MMs, sclera anicteric, oral pharynx no lesions, 2+ tonsils Neck: no nodes, no JVD, supple, full ROM Respiratory: no rales, no rhonchi, wheezing present Cardiovascular: RRR, no rub S1, S2 Gastrointestinal: soft, non-tender, no distention, positive bowel sounds Neurological: moves all 4 limbs Psychiatric: normal affect, A&O x 3 Deviation from normal: eczema Dx/Plan (1) Pneumonia Code(s): J18.9 - PNEUMONIA, UNSPECIFIED ORGANISM Status: Acute Comment: continue IV antibiotics as below (2) Headache Code(s): R51 - HEADACHE Status: Acute Comment: Pt has been started on steroids until temporal arteritis is ruled out. MRI brain pending. (3) Chronic hepatitis C Code(s): B18.2 - CHRONIC VIRAL HEPATITIS C Status: Chronic Comment: stable (4) Hypertension Code(s): I10 - ESSENTIAL (PRIMARY) HYPERTENSION Status: Chronic Comment: monitor vital signs and titrate antihypertensives as needed (5) Hypokalemia Code(s): E87.6 - HYPOKALEMIA Status: Resolved - Plan * . Review of Systems - Review of Systems Constitutional: other. negative: fever, chills, sweats, weakness, malaise Respiratory: Cough, Dry, SOB with Excertion, Wheezing. negative: Shortness of Breath, Hemoptysis, Pleuritic Pain, Sputum Cardiovascular: negative: chest pain, palpitations, orthopnea, paroxysmal nocturnal dyspnea, edema, light headedness Genitourinary: negative: Dysuria, Frequency, Incontinence, Hematuria, Retention Musculoskeletal: Other (HEADACHE). negative: Neck Pain, Shoulder Pain, Arm Pain , Back Pain, Hand Pain, Leg Pain, Foot Pain - Medications/Allergies Allergies/Adverse Reactions: Allergies Allergy/AdvReac Type Severity Reaction Status Date / Time Penicillins Allergy Rash Verified 07/22/17 15:33 Medications: Current Medications Acetaminophen (Tylenol) 650 mg PO Q4H PRN PRN Reason: Headache/Fever/Mild Pain (1-3) Last Admin: 09/18/18 02:52 Dose: 650 mg Acetaminophen/Aspirin/Caffeine (Excedrin Migraine) 1 tab PO Q8H PRN PRN Reason: MIGRAINES Last Admin: 09/17/18 20:46 Dose: 1 tab Albuterol/Ipratropium (Duoneb) 3 ml NEB [id number] PRN PRN Reason: SOB &/or Wheezing Last Admin: 09/17/18 15:17 Dose: 3 ml Albuterol/Ipratropium (Duoneb) 3 ml NEB [id number] [facility] Last Admin: 09/18/18 13:47 Dose: 3 ml Azithromycin (Zithromax) 250 mg PO DAILY [facility] Stop: 09/22/18 09:01 Clonidine (Catapres) 0.1 mg PO BID [facility] Last Admin: 09/18/18 08:47 Dose: 0.1 mg Diltiazem HCl (Cardizem) 30 mg PO QID [facility] Last Admin: 09/18/18 11:33 Dose: 30 mg Guaifenesin (Robitussin Sf) 200 mg PO Q4H PRN PRN Reason: Congestion Last Admin: 09/18/18 02:33 Dose: 200 mg Hydralazine HCl (Apresoline) 10 mg SLOW IVP Q4H PRN PRN Reason: .SBP>180 Melatonin (Melatonin) 3 mg PO HSPRN PRN PRN Reason: Insomnia Last Admin: 09/17/18 22:16 Dose: 3 mg Methylprednisolone Sodium Succinate (Solu-Medrol) 40 mg IVP 1630 RANGEL Morphine Sulfate (Morphine) 2 mg SLOW IVP Q6H PRN PRN Reason: Pain Last Admin: 09/18/18 08:47 Dose: 2 mg Nicotine (Nicoderm Patch) 14 mg TD Q24HR RANGEL Last Admin: 09/17/18 20:53 Dose: 14 mg
--- NOTE | 2018-09-18 14:46 | MRI ---
MRI BRAIN WITH AND WITHOUT CONTRAST: HISTORY: Evaluate lesions seen on recent CT examination. COMPARISON: CT brain 09/16/2018. FINDINGS: On the diffusion weighted imaging sequence, there are no abnormal areas of diffusion restriction to s uggest an acute infarction. This is confirmed on the ADC maps. On the susceptibility weighted imaging sequence, there are no abnormal areas of hemorrhage. The [place] flow voids are maintained. There is extensive periventricular and deep white matter microvascular ischemic changes. No acute in farction. Mild ex vacuo dilatation of the lateral ventricles. No midline shift or mass effect. No hydrocephalus. No abnormal focal areas of enhancement to suggest a demyelinating disease. There is adequate contrast enhancement of the [place]. Cerebellar tonsils terminate at the level of the foramen magnum. Normal marrow signal of the clivus. IMPRESSION: 1. Advanced subcortical and deep white matter and periventricular white matter chronic angiopathic c hanges likely from chronic hypertension. No evidence for active demyelinating disease. 2. No acute hemorrhage or infarct. 3. Low-grade right maxillary, bilateral sphenoid, and bilateral ethmoid sinusitis. POS: [facility]
--- NOTE | 2018-09-18 15:01 | PRG ---
DATE OF SERVICE: 09/18/2018 SUBJECTIVE: Ms. Le says she is feeling better. PHYSICAL EXAMINATION: VITAL SIGNS: She is afebrile, blood pressure is a_ little high diastolic parra, fluctuating between 93 and 101, last blood pressure 158/93, respiratory rate 16 , oximetry is 96% on room air. LUNGS: Remarkable for distant breath sounds. HEART: Regular rhythm. ABDOMEN: Soft. IMPRESSION: 1. Pneumonia. 2. Chronic obstructive pulmonary disease exacerbation. 3. Headache secondary to coughing. The temporal artery biopsy was suggested by the Hospitalist. I have discussed this and I do not feel that this is indicated right now in the setting of pneumonia with sed rate of 36. She does have evidence of white matter disease, but she also smokes 3 packs a day. She is stable to move out of the Intermediate Care Unit. YOEL
[2018-09-18] MEDS: Azithromycin 250 MG TAB PO SCH (18:02)
[2018-09-18] MEDS: Nicotine 14 MG PATCH TD SCH (20:58)
[2018-09-18] MEDS: Aspirin/APAP/Caffeine Tab (Excedrin Migraine) PO PRN (22:26)
[2018-09-19] MEDS: Diabetic Tussin 200 MG/10 ML UDCUP PO PRN (01:46)
[2018-09-19] MEDS: Acetaminophen 325 MG TAB PO PRN ×2 (01:48→05:22)
[2018-09-19 04:43] LABS: #Lymphocytes 0.9 thou/uL (1.20-3.40); #Monocytes 0.7 thou/uL (0.11-0.59); #Neutrophils 11.2 thou/uL (1.40-6.50); %Basophils 0.1 % (0.0-1.0); %Eosinophils 0.2 % (0.0-10.0); %Monocytes 5.3 % (0.0-10.0); %Neutrophils 87.5 % (42.0-75.0); Hemoglobin 13.2 g/dL (12.0-16.0); Mean Corpuscular HGB CONC 33.7 g/dL (32.0-36.0); Mean Corpuscular Hemoglobin 32.8 pg (27.0-31.0); Mean Corpuscular Volume 97.3 fL (78.0-98.0); Mean Platelet Volume 7.2 fL (7.4-10.4); Platelet Count 418 thou/uL (130-400); RBC Distribution Width 12.4 % (11.5-14.5); Red Blood Cell (RBC) Count 4.03 mill/uL (4.20-5.40); White Blood Cell (WBC) Count 12.8 thou/uL (4.8-10.8)
[2018-09-19 05:08] LABS: Anion Gap 12 mmol/L (10-20); BUN (Urea Nitrogen) 15 mg/dL (9.8-20.1); Calc. Creatinine Clearance 111 mL/min (70-130); Calcium 9.1 mg/dL (7.8-10.44); Carbon Dioxide 29 mmol/L (22-29); Chloride 101 mmol/L (98-107); Estimated GFR-MDRD Greater than 90; Glucose 135 mg/dL (70-105); Potassium 3.7 mmol/L (3.5-5.1); Sodium 138 mmol/L (136-145)
[2018-09-19] MEDS: Aspirin/APAP/Caffeine Tab (Excedrin Migraine) PO PRN (07:50)
[2018-09-19] MEDS: cloNIDine 0.1 MG TAB PO SCH (07:51)
[2018-09-19 08:10] VITALS: BP 179/107; TEMP 98
[2018-09-19] MEDS ORDERED: Azithromycin 250 MG TAB PO SCH (09:00)
[2018-09-19] MEDS: Azithromycin 250 MG TAB PO SCH (16:13)
--- NOTE | 2018-09-19 21:27 | PRG ---
DATE OF SERVICE: 09/19/2018 SUBJECTIVE: Ms. Le says she is feeling well until she has been discharged. Her hemodynamics has been stable overnight. OBJECTIVE: LUNGS: Clear now. HEART: Regular rhythm. ABDOMEN: Soft. IMPRESSION: 1. Pneumonia. 2. Asthmatic bronchitis. 3. Heavy tobacco use. 4. 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 I will see her in the office in 3-4 weeks. YOEL
--- NOTE | 2018-09-20 01:21 | DIS ---
PRIMARY CARE PROVIDER: Freya Richards NP. DATE OF ADMISSION: 09/16/2018 DATE OF DISCHARGE: 09/19/2018 DISCHARGE DIAGNOSES: 1. Pneumonia. 2. Headache. 3. Hypokalemia. 4. Sepsis. 5. Tobacco abuse. CONDITION OF PATIENT ON THE DAY OF DISCHARGE: Stable. I assessed Ms. Le on the day of discharge. She denies any chest pain or shortness of breath. Vital signs are stable. S1 and S2 are heard, reg ular. Lungs are clear to auscultation bilaterally. DISCHARGE MEDICATIONS: Aspirin 81 mg daily; clonidine 0.1 mg 2 times a day; Cardizem 30 mg 4 times a day; azithromycin 250 mg daily, 3 more doses; prednisone taper and Ventolin p.r.n. CONSULTATIONS DURING THIS HOSPITALIZATION: Pulmonology, Dr. Tran; and General Surgery, Dr. Ozuna. HOSPITAL COURSE: Ms. Le is a pleasant 58-year-old lady, who was admitted to [facility] on 09/16/2018 for pneumonia. Please refer to my history and physical note dated 09/16/20 for further details. She was seen by Pulmonology Service. She improved with oxygen, steroids, br onchodilators and antibiotics. She complained of left temporal headache. She had an ESR of 36 and a C-reactive protein of 5.46. [facility] Surgery Service saw the patient and the plan was to have a temporal artery biopsy if her MRI of the brain did not show an alternate cause for the headaches. She had MRI of the brain, which showed advanced subcortical and deep white matter and periventricular white matter, chronic angiopathic sher nges likely from chronic hypertension. There was no evidence for active demyelinating disease. She had low grade right maxillary, bilateral sphenoid and bilateral ethmoid sinusitis. Her headaches improved. After lengthy discussion about risks versus benefits for temporal artery bio psy, she made an informed decision not to have the procedure. If she has ongoing headaches, she will seek help from her primary care provider. On the day of discharge, she has sodium 138, potassium 3.7, creatinine 0.58, white count 12,800, hemo globin 13.2, and platelet count 418,000. Her blood pressures were elevated during this hospitalization. She is advised to check her blood pre ssure and heart rate 3 times a day at home and show the readings to her primary care provider, in cisco e her blood pressure medications need to be adjusted for her home environment. Many thanks for allowing me to participate in your patient's care. Please feel free to contact me wi th any questions or concerns. DISCHARGE DESTINATION: Home. TOTAL AMOUNT OF TIME SPENT COORDINATING THIS DISCHARGE: 32 minutes.
== END 2018-09-19 17:30 | disposition home or self-care (01) | DRG 871 ==
LOC: ERS 13:17 → IMCU/EMU 17:31 → T4-B 09-18 19:55
PROVIDERS: ADMIT Internal Medicine; ATTEND Internal Medicine
DX: A41.9 Sepsis, unspecified organism (principal); J18.9 Pneumonia, unspecified organism; I47.1 Supraventricular tachycardia; B18.2 Chronic viral hepatitis C; F17.210 Nicotine dependence, cigarettes, uncomplicated; I10 Essential (primary) hypertension; J44.9 Chronic obstructive pulmonary disease, unspecified; Z86.73 Personal history of transient ischemic attack (TIA), and cerebral infarction without residual deficits; Z79.899 Other long term (current) drug therapy; Z79.82 Long term (current) use of aspirin; R51 Headache; J45.909 Unspecified asthma, uncomplicated; C44.612 Basal cell carcinoma of skin of right upper limb, including shoulder
CPT/HCPCS: 36415; 70450; 70553; 71045; 80048; 80053; 82553; 83605; 84484; 85025; 85652; 86140; 87040; 87081; 87430; 87804; 90471; 90686; 93005; 94640; 94644; 96361; 96365; 96367; 99406; A9579; G0008; G8996-GN-CI; G8997-GN-CI; J0456; J0696; J2270; J2920; J2930; J7050; J7506; J7611; J7620

== ENCOUNTER 2019-02-21 22:12 | Emergency (ER) | payer SELFPAY ==
--- NOTE | 2019-02-22 | ULT ---
Ultrasound Doppler duplex venous left lower extremity: 01/19/2019 HISTORY: Left lower Livia pain and edema. TECHNIQUE: Grayscale, color-flow, and spectral analysis, of major veins of bilateral lower extremities. FINDINGS: There is demonstration of blood flow with normal compressibility, of the left common femoral, profund a femoral, greater saphenous, femoral, popliteal, and posterior tibial, veins. Edema throughout the soft tissues, mild. Multiple enlarged left inguinal lymph nodes. IMPRESSION: Negative. No deep venous thrombosis of left lower extremity.
[2019-02-22 00:26] LABS: #Eosinphils 0.2 thou/uL (0.0-0.7); #Lymphocytes 1.7 thou/uL (1.20-3.40); #Monocytes 0.9 thou/uL (0.11-0.59); #Neutrophils 5.2 thou/uL (1.40-6.50); %Basophils 0.3 % (0.0-1.0); %Eosinophils 2.1 % (0.0-10.0); %Lymphocytes 21.5 % (21.0-51.0); %Monocytes 10.9 % (0.0-10.0); %Neutrophils 65.2 % (42.0-75.0); Hemoglobin 14.1 g/dL (12.0-16.0); Mean Corpuscular HGB CONC 31.7 g/dL (32.0-36.0); Mean Corpuscular Hemoglobin 30.3 pg (27.0-31.0); Mean Corpuscular Volume 95.4 fL (78.0-98.0); Mean Platelet Volume 7.4 fL (7.4-10.4); Platelet Count 314 thou/uL (130-400); RBC Distribution Width 12.7 % (11.5-14.5); Red Blood Cell (RBC) Count 4.64 mill/uL (4.20-5.40)
[2019-02-22 00:46] LABS: ALT (SGPT) 28 U/L (8-55); AST (SGOT) 29 U/L (5-34); Albumin 3.9 g/dL (3.5-5.0); Alkaline Phosphatase 132 U/L (40-150); Anion Gap 13 mmol/L (10-20); BUN (Urea Nitrogen) 12 mg/dL (9.8-20.1); Bilirubin, Total 0.3 mg/dL (0.2-1.2); Calc. Creatinine Clearance 0 mL/min (70-130); Carbon Dioxide 28 mmol/L (22-29); Chloride 102 mmol/L (98-107); Estimated GFR-MDRD Greater than 90; Globulin 3.7 g/dL (2.4-3.5); Glucose 97 mg/dL (70-105); Potassium 3.7 mmol/L (3.5-5.1); Protein, Total 7.6 g/dL (6.0-8.3); Sodium 139 mmol/L (136-145)
[2019-02-22] MEDS ORDERED: cefTRIAXone\\ROCEPHIN 2 GM VIAL ONE (02:09)
[2019-02-22] MEDS ORDERED: Lidocaine 1% PF 5 ML VIAL ONE (02:10)
== END 2019-02-22 02:36 | disposition home or self-care (01) ==
LOC: ERS 22:12
DX: L03.116 Cellulitis of left lower limb (principal); I47.1 Supraventricular tachycardia; I10 Essential (primary) hypertension; J44.9 Chronic obstructive pulmonary disease, unspecified; F32.9 Major depressive disorder, single episode, unspecified; F17.210 Nicotine dependence, cigarettes, uncomplicated; Z86.73 Personal history of transient ischemic attack (TIA), and cerebral infarction without residual deficits
CPT/HCPCS: 36415; 80053; 85025; 85379; 96372; J0696; J2001

== ENCOUNTER 2019-02-22 20:08 | Emergency (ER) | payer SELFPAY | END 2019-02-22 22:15 | disposition home or self-care (01) | LOC: ERS 20:08 | DX: L03.116 Cellulitis of left lower limb (principal); F32.9 Major depressive disorder, single episode, unspecified; F17.210 Nicotine dependence, cigarettes, uncomplicated; J44.9 Chronic obstructive pulmonary disease, unspecified; I10 Essential (primary) hypertension; I47.1 Supraventricular tachycardia; I49.9 Cardiac arrhythmia, unspecified; Z86.73 Personal history of transient ischemic attack (TIA), and cerebral infarction without residual deficits; Z79.899 Other long term (current) drug therapy; Z79.891 Long term (current) use of opiate analgesic | CPT/HCPCS: 99283 ==

== ENCOUNTER 2019-03-08 14:03 | Emergency (ER) | payer SELFPAY ==
[2019-03-08 16:06] LABS: #Eosinphils 0.1 thou/uL (0.0-0.7); #Lymphocytes 1.3 thou/uL (1.20-3.40); #Monocytes 0.9 thou/uL (0.11-0.59); %Basophils 0.5 % (0.0-1.0); %Eosinophils 0.9 % (0.0-10.0); %Lymphocytes 15.5 % (21.0-51.0); %Monocytes 10.7 % (0.0-10.0); %Neutrophils 72.5 % (42.0-75.0); Hemoglobin 14.9 g/dL (12.0-16.0); Mean Corpuscular HGB CONC 32.6 g/dL (32.0-36.0); Mean Corpuscular Hemoglobin 30.9 pg (27.0-31.0); Mean Corpuscular Volume 94.8 fL (78.0-98.0); Mean Platelet Volume 7.5 fL (7.4-10.4); Platelet Count 314 thou/uL (130-400); RBC Distribution Width 12.6 % (11.5-14.5); Red Blood Cell (RBC) Count 4.82 mill/uL (4.20-5.40); White Blood Cell (WBC) Count 8.3 thou/uL (4.8-10.8)
[2019-03-08 16:25] LABS: ALT (SGPT) 38 U/L (8-55); AST (SGOT) 39 U/L (5-34); Albumin 4.1 g/dL (3.5-5.0); Alkaline Phosphatase 122 U/L (40-150); Anion Gap 12 mmol/L (10-20); BUN (Urea Nitrogen) 11 mg/dL (9.8-20.1); Bilirubin, Total 0.4 mg/dL (0.2-1.2); Calc. Creatinine Clearance 0 mL/min (70-130); Calcium 9.3 mg/dL (7.8-10.44); Carbon Dioxide 29 mmol/L (22-29); Chloride 101 mmol/L (98-107); Estimated GFR-MDRD 90; Globulin 3.9 g/dL (2.4-3.5); Glucose 90 mg/dL (70-105); Potassium 3.4 mmol/L (3.5-5.1); Sodium 139 mmol/L (136-145)
== END 2019-03-08 16:44 | disposition home or self-care (01) ==
LOC: ERS 14:03
DX: M79.631 Pain in right forearm (principal); I10 Essential (primary) hypertension; L30.9 Dermatitis, unspecified; I47.1 Supraventricular tachycardia; J42 Unspecified chronic bronchitis; F32.9 Major depressive disorder, single episode, unspecified; F17.210 Nicotine dependence, cigarettes, uncomplicated; Z86.73 Personal history of transient ischemic attack (TIA), and cerebral infarction without residual deficits; Z79.899 Other long term (current) drug therapy
CPT/HCPCS: 36415; 80053; 83605; 85025; 99283

== ENCOUNTER 2019-08-06 14:04 | Inpatient (IN) | payer SELFPAY ==
[2019-08-06] MEDS ORDERED: Albuterol Sulfate 2.5 mg/0.5 ml Neb ONE (15:14)
--- NOTE | 2019-08-06 15:34 | RAD ---
PORTABLE CHEST ONE VIEW: 08/06/19 at 2:42 p.m. HISTORY: Short of breath, chest pain. FINDINGS/IMPRESSION: Comparison is made with exam of 09/14/18. The heart size is normal. The aorta is tortuous. No focal areas of consolidation, pneumothoraces, or pleural effusions are seen. POS: [facility]
[2019-08-06 16:04] LABS: #Eosinphils 0.1 thou/uL (0.0-0.7); #Lymphocytes 1.2 thou/uL (1.20-3.40); #Monocytes 1.1 thou/uL (0.11-0.59); %Basophils 0.4 % (0.0-1.0); %Eosinophils 0.6 % (0.0-10.0); %Lymphocytes 11.9 % (21.0-51.0); %Monocytes 10.2 % (0.0-10.0); %Neutrophils 76.9 % (42.0-75.0); Hemoglobin 16.4 g/dL (12.0-16.0); Mean Corpuscular HGB CONC 33.2 g/dL (32.0-36.0); Mean Corpuscular Hemoglobin 31.3 pg (27.0-31.0); Mean Corpuscular Volume 94.3 fL (78.0-98.0); Mean Platelet Volume 7.7 fL (7.4-10.4); Platelet Count 290 thou/uL (130-400); Red Blood Cell (RBC) Count 5.24 mill/uL (4.20-5.40); White Blood Cell (WBC) Count 10.4 thou/uL (4.8-10.8)
[2019-08-06] MEDS ORDERED: methylPREDNISolone Sod Succ/PF 125 MG/2 ML VIAL ONE (16:18)
[2019-08-06 16:22] LABS: ALT (SGPT) 32 U/L (8-55); AST (SGOT) 34 U/L (5-34); Albumin 4.1 g/dL (3.5-5.0); Alkaline Phosphatase 143 U/L (40-110); Anion Gap 13 mmol/L (10-20); BUN (Urea Nitrogen) 9 mg/dL (9.8-20.1); Bilirubin, Total 0.7 mg/dL (0.2-1.2); Calc. Creatinine Clearance 0 mL/min (70-130); Calcium 9.1 mg/dL (7.8-10.44); Carbon Dioxide 27 mmol/L (22-29); Chloride 104 mmol/L (98-107); Estimated GFR-MDRD Greater than 90; Globulin 3.8 g/dL (2.4-3.5); Glucose 83 mg/dL (70-105); Potassium 3.3 mmol/L (3.5-5.1); Protein, Total 7.9 g/dL (6.0-8.3); Sodium 141 mmol/L (136-145)
--- NOTE | 2019-08-06 17:17 | CT ---
EXAM: CT angiogram of the chest including 3-D rendering: HISTORY: Chest pain and dyspnea COMPARISON: None FINDINGS: There is adequate opacification of the pulmonary arteries. No evidence for aortic aneurysm or dissection. No convincing CT evidence for acute pulmonary embolism. Minute bilateral linear parenchymal changes, more so in the lingula and right middle lobe having more chronic appearance. Old granulomatous disease. No evidence for mediastinal mass or adenopathy. No evidence for pleural or pericardial effusion. The visualized upper abdomen is unremarkable. IMPRESSION: No convincing CT evidence for acute pulmonary embolism.
[2019-08-06] MEDS ORDERED: Albuterol Sulfate 2.5 mg/3 ml Neb ONE ×2 (18:17→19:11)
[2019-08-06] MEDS ORDERED: Sodium Chloride 0.9% 100 ML ONE (19:05)
[2019-08-06] MEDS ORDERED: Azithromycin 500 MG VIAL ONE (19:05)
[2019-08-06] MEDS ORDERED: cefTRIAXone\\ROCEPHIN 1 GM VIAL ONE (19:05)
[2019-08-06 20:27] LABS: Bacteria/HPF None Seen HPF (None Seen); Bilirubin Negative (Negative); Blood, Urine Trace (Negative); Clarity Clear (Clear); Glucose, Urine (Dipstick) Normal (Negative); Leukocyte Negative Leu/uL (Negative); Nitrite Negative (Negative); Protein, Urine (Dipstick) Negative (Neg-Trace); Squamous Epithelial 0-3 HPF (0-3); Urobilinogen Normal mg/dL (Less than 2); WBC/HPF 0-3 HPF (0-3)
[2019-08-06] MEDS ORDERED: Guaifenesin DM 100-10/5 ML UDCUP PO PRN (20:43)
[2019-08-06] MEDS ORDERED: Potassium Chloride 20 MEQ TAB PO SCH (20:45)
--- NOTE | 2019-08-06 21:08 | PDOC.EVN ---
Event Note - Event Note Event Note: [id number] HP
[2019-08-06 21:22] LABS: Troponin I 0.017 ng/mL (< 0.028)
--- NOTE | 2019-08-06 21:31 | HP ---
CHIEF COMPLAINT: Shortness of breath and cough. HISTORY OF PRESENT ILLNESS: Ms. Le is a 59-year-old female with past medical history of COPD, cigarette smoker, tachycardia/tachyarrhythmia, eczema, basal cell carcinoma, among others, presents to the emergency room with shortness of breath and coughing for the last few days. Cough is productive of thick sputum. Denies fever or chills. In the emergency room, the patient was in respiratory distress, wheezing. The patient was given DuoNeb. Continues to be symptomatic. Started on IV steroids and IV antibiotics. The workup in the emergency room also included a CTA of the chest which was negative for PE. The patient has been admitted to the hospital for further management. PAST MEDICAL HISTORY: 1. COPD. 2. Hypertension. 3. Basal cell carcinoma. 4. Eczema. 5. Ischemic cerebrovascular accident. PAST SURGICAL HISTORY: 1. Removal of basal cell carcinoma. 2. Appendectomy. 3. Heart catheterization with no stents, ablation 2017. FAMILY HISTORY: Reviewed and noncontributory. HOME MEDICATIONS: Please see home medication reconciliation form for updated medications. ALLERGIES: PENICILLIN. REVIEW OF SYSTEMS: Review of 14 systems negative except what is mentioned in the history of present illness. PHYSICAL EXAMINATION: GENERAL: The patient is awake, alert, in moderate respiratory distress. HEAD AND NECK: Normocephalic and atraumatic. NECK: Supple. No JVD. CHEST: Bilateral expiratory wheeze. HEART: S1 and S2 regular, tachycardic. ABDOMEN: Soft, nontender. Bowel sounds present. NEUROLOGIC: Awake, alert, oriented x3. PSYCH: Normal mood. EXTREMITIES: No clubbing, no cyanosis. LABORATORY DATA: CT of the chest as mentioned above in history of present illness. BNP is 55. Troponin less than 0.01. Electrolytes; potassium 3.3, otherwise unremarkable. CBC, hemoglobin 16.4, WBC 10.4, platelets 290. ASSESSMENT: 1. Acute exacerbation of chronic obstructive pulmonary disease. 2. Hypokalemia. 3. Hypertension. 4. Tachycardia. 5. Cigarette smoker. 6. History of basal cell carcinoma. PLAN: 1. Admit. 2. Continue with bronchodilators as scheduled and as needed. 3. IV steroids. 4. IV antibiotics. 5. Replace potassium. 6. Oxygen saturation more than 90%. 7. Reconcile home medications. 8. DVT prophylaxis with low-dose heparin. 9. Expected length of stay, 2 midnights or more. Job ID: [id number]
[2019-08-06] MEDS ORDERED: Aspirin Chewable 81 MG TAB ONE (22:06)
[2019-08-07] MEDS: Famotidine 20 MG TAB PO SCH ×3 (00:29→21:25)
[2019-08-07] MEDS: methylPREDNISolone Sod Succ 40 MG VIAL IVP SCH ×5 (00:29→23:24)
[2019-08-07] MEDS: Azithromycin 500 MG in Sodium Chloride 0.9% 250 ML 250 ML IVPB SCH ×2 (00:30→21:21)
[2019-08-07 00:51] VITALS: BMI 26.5
[2019-08-07 00:52] LABS: Troponin I Less than 0.010 ng/mL (< 0.028)
[2019-08-07 06:19] LABS: #Lymphocytes 0.6 thou/uL (1.20-3.40); #Monocytes 0.2 thou/uL (0.11-0.59); %Eosinophils 0.2 % (0.0-10.0); %Lymphocytes 8.2 % (21.0-51.0); %Monocytes 2.4 % (0.0-10.0); %Neutrophils 89.2 % (42.0-75.0); Mean Corpuscular HGB CONC 34.2 g/dL (32.0-36.0); Mean Corpuscular Volume 93.5 fL (78.0-98.0); Mean Platelet Volume 8.1 fL (7.4-10.4); Platelet Count 274 thou/uL (130-400); Red Blood Cell (RBC) Count 4.36 mill/uL (4.20-5.40); White Blood Cell (WBC) Count 6.7 thou/uL (4.8-10.8)
[2019-08-07 06:49] LABS: Anion Gap 14 mmol/L (10-20); BUN (Urea Nitrogen) 11 mg/dL (9.8-20.1); Calc. Creatinine Clearance 112 mL/min (70-130); Calcium 8.6 mg/dL (7.8-10.44); Carbon Dioxide 22 mmol/L (22-29); Chloride 107 mmol/L (98-107); Estimated GFR-MDRD Greater than 90; Glucose 145 mg/dL (70-105); Potassium 3.8 mmol/L (3.5-5.1); Sodium 139 mmol/L (136-145)
[2019-08-07] MEDS ORDERED: FLU VACC QS2019-20(6MOS UP)/PF 60 MCG/0.5 ML SYRINGE IM ONE (09:00)
[2019-08-07] MEDS: Enoxaparin Sodium 40 MG/0.4 ML SYRINGE SC SCH (09:41)
--- NOTE | 2019-08-07 10:10 | PDOC.HOSPP ---
- Subjective Encounter Date: 08/07/19 Encounter Time: 10:05 Subjective: f/u for COPD exacerbation. Feels better overall receiving IV Solumedrol, Rocephin/Zithromax. Remains on RA currently. - Objective Vital Signs & Weight: Vital Signs (12 hours) Temp Pulse Resp BP BP Pulse Ox 08/07/19 07:58 97.9 F 106 H 16 180/92 H 93 L 08/07/19 07:10 98 20 96 08/07/19 05:22 98.0 F 109 H 16 173/99 H 92 L 08/07/19 01:06 110 H 20 98 08/07/19 00:05 98.1 F 100 20 170/92 H 94 L Weight Weight 145 lb 1.6 oz I&O: 08/06/19 08/07/19 08/08/19 06:59 06:59 06:59 Intake Total 990 Output Total 300 Balance 690 Result Diagrams: 08/07/19 05:34 08/07/19 05:34 Additional Labs: Microbiology 08/06/19 19:50 Venous blood - Right Hand Blood Culture - Preliminary Specimen has been received and culture in progress. No Growth to date. 08/06/19 19:50 Venous blood - Left Hand Blood Culture - Preliminary Specimen has been received and culture in progress. No Growth to date. Laboratory Tests 08/06/19 08/06/19 08/06/19 15:54 15:54 15:54 Potassium 3.3 L Magnesium Troponin I Less than 0.010 B-Natriuretic Peptide 55.9 08/06/19 08/06/19 08/07/19 15:54 20:51 00:21 Potassium Magnesium 1.7 Troponin I 0.017 Less than 0.010 B-Natriuretic Peptide Radiology Reviewed by me: Yes (CTA chest - neg for PE) EKG Reviewed by me: Yes (Tele - SR) Hospitalist ROS - Medication Medications: Active Medications Generic Name Dose Route Start Last Admin Trade Name Freq PRN Reason Stop Dose Admin Albuterol/Ipratropium 3 ml 08/07/19 01:00 08/07/19 07:10 Duoneb NEB 3 ml [id number] RANGEL Administration Enoxaparin Sodium 40 mg 08/07/19 09:00 08/07/19 09:41 Lovenox SC 40 mg 0900 RANGEL Administration Famotidine 20 mg 08/06/19 21:00 08/07/19 09:41 Pepcid PO 20 mg BID RANGEL Administration Azithromycin 500 mg/ Sodium 250 mls @ 250 mls/hr 08/06/19 21:00 08/07/19 00: 30 Chloride IVPB Not Given 2[address] [facility] Methylprednisolone Sodium Succinate 40 mg 08/06/19 23:59 08/07/19 06:24 Solu-Medrol IVP 40 mg Q6HR RANGEL Administration - Exam General - other findings: mild resp distress, alert Eye: PERRL, anicteric sclera ENT: normocephalic atraumatic, no oropharyngeal lesions Neck: supple, symmetric, no JVD, no thyromegaly Heart: RRR, no murmur, no gallops, no rubs, normal peripheral pulses Respiratory: rales, rhonchi, wheezes Respiratory - other findings: diminished bilat Gastrointestinal: soft, non-tender, non-distended, normal bowel sounds Extremities: no cyanosis, no edema Skin: normal turgor Neurological: cranial nerve grossly intact, no new deficit Musculoskeletal: normal tone, normal strength Psychiatric: normal affect, A&O x 3 Hosp A/P (1) COPD exacerbation Code(s): J44.1 - CHRONIC OBSTRUCTIVE PULMONARY DISEASE W (ACUTE) EXACERBATION Status: Acute Plan: Continue pulmonary support with Solumedrol 40mg IV q6h, Rocephin/Zithromax, Duonebs q4h, O2 support as clinically indicated (2) Acute respiratory failure with hypoxia Code(s): J96.01 - ACUTE RESPIRATORY FAILURE WITH HYPOXIA Status: Acute Plan: Secondary to #1, continue mgmt as outlined above in #1 (3) Hypertension Code(s): I10 - ESSENTIAL (PRIMARY) HYPERTENSION Status: Chronic Qualifiers: Hypertension type: essential hypertension Qualified Code(s): I10 - Essential (primary) hypertension Plan: Resume home regimen of Diltiazem/Clonidine, serial BP monitoring (4) Tobacco abuse Code(s): Z72.0 - TOBACCO USE Status: Chronic Plan: Start Nicoderm Patch daily (5) Hypokalemia Code(s): E87.6 - HYPOKALEMIA Status: Acute Plan: Resolving, serial K+ monitoring (6) Basal cell carcinoma Code(s): C44.91 - BASAL CELL CARCINOMA OF SKIN, UNSPECIFIED Status: Chronic Qualifiers: Basal cell carcinoma location: unspecified site Qualified Code(s): C44.91 - Basal cell carcinoma of skin, unspecified Plan: WCT for local care, referral for outpt mgmt - Plan continue antibiotics, respiratory therapy, out of bed/ambulate, DVT proph w/SCDs Stable currently Continue Solumedrol another 24h then convert to Prednisone Continue Rocephin/Zithromax Tobacco cessation resources Start Nicotine Patch Change Duonebs q4h Wound care consult
[2019-08-07] MEDS ORDERED: cloNIDine 0.1 MG TAB PO SCH (10:15)
[2019-08-07] MEDS: Nicotine 14 MG PATCH TD SCH (10:24)
[2019-08-07] MEDS: Acetaminophen 325 MG TAB PO PRN ×2 (11:44→21:28)
[2019-08-07] MEDS: hydrALAZINE 20 MG/ML VIAL SLOW IVP PRN (11:44)
[2019-08-07] MEDS: cefTRIAXone\\ROCEPHIN 1 GM in Sodium Chloride 0.9% 100 ML IVPB SCH (21:14)
[2019-08-07] MEDS: cloNIDine 0.1 MG TAB PO SCH (21:25)
[2019-08-07] MEDS: Zolpidem Tartrate 5 MG TAB PO PRN (21:29)
[2019-08-08] MEDS: methylPREDNISolone Sod Succ 40 MG VIAL IVP SCH ×3 (05:12→17:35)
[2019-08-08] MEDS: Famotidine 20 MG TAB PO SCH ×2 (08:26→21:35)
[2019-08-08] MEDS: Acetaminophen 325 MG TAB PO PRN ×3 (08:27→16:45)
[2019-08-08] MEDS: Enoxaparin Sodium 40 MG/0.4 ML SYRINGE SC SCH (08:27)
[2019-08-08] MEDS: cloNIDine 0.1 MG TAB PO SCH (08:54)
[2019-08-08] MEDS: Nicotine 14 MG PATCH TD SCH (12:33)
--- NOTE | 2019-08-08 17:08 | PDOC.HOSPP ---
- Subjective Encounter Date: 08/08/19 Encounter Time: 17:00 Subjective: f/u for COPD exacerbation on Solumedrol, Rocephin/Zithromax. Feels better overall and off O2 curently. c/o CROOK today. - Objective Vital Signs & Weight: Vital Signs (12 hours) Temp Pulse Resp BP Pulse Ox 08/08/19 16:00 98.5 F 96 18 176/99 H 94 L 08/08/19 14:35 99 20 95 08/08/19 12:26 97.6 F 97 22 H 162/84 H 95 08/08/19 11:25 96 08/08/19 10:49 94 18 93 L 08/08/19 08:15 93 L 08/08/19 08:11 97.6 F 102 H 20 160/91 H 92 L 08/08/19 07:03 98 20 96 Weight Admit Weight 145 lb 1.6 oz Weight 145 lb 1.6 oz I&O: 08/07/19 08/08/19 08/09/19 06:59 06:59 06:59 Intake Total 990 841 Output Total 300 300 Balance 690 541 Result Diagrams: 08/07/19 05:34 08/07/19 05:34 Additional Labs: Microbiology 08/06/19 20:08 Urine clean catch Urine Culture - Final 08/06/19 19:50 Venous blood - Right Hand Blood Culture - Preliminary Specimen has been received and culture in progress. No Growth to date. 08/06/19 19:50 Venous blood - Left Hand Blood Culture - Preliminary Specimen has been received and culture in progress. No Growth to date. 08/06/19 19:50 Venous blood - Left Hand Blood Culture - Preliminary Gram Variable Marc Laboratory Tests 08/06/19 08/06/19 08/06/19 15:54 15:54 15:54 Potassium 3.3 L Magnesium Troponin I Less than 0.010 B-Natriuretic Peptide 55.9 08/06/19 08/06/19 08/07/19 15:54 20:51 00:21 Potassium Magnesium 1.7 Troponin I 0.017 Less than 0.010 B-Natriuretic Peptide Laboratory Tests 08/06/19 15:54 Potassium 3.3 L EKG Reviewed by me: Yes (Tele - SR) Hospitalist ROS - Medication Medications: Active Medications Generic Name Dose Route Start Last Admin Trade Name Freq PRN Reason Stop Dose Admin Acetaminophen 650 mg 08/06/19 20:43 08/08/19 16:45 Tylenol PO 650 mg Q4H PRN Administration Headache/Fever/Mild Pain (1-3) Albuterol/Ipratropium 3 ml 08/07/19 14:30 08/08/19 14:35 Duoneb NEB 3 ml [id number] RANGEL Administration Clonidine 0.1 mg 08/07/19 21:00 08/08/19 08:54 Catapres PO Not Given BID RANGEL Diltiazem HCl 60 mg 08/07/19 21:00 08/08/19 08:26 Cardizem PO 60 mg BID RANGEL Administration Enoxaparin Sodium 40 mg 08/07/19 09:00 08/08/19 08:27 Lovenox SC 40 mg 0900 RANGEL Administration Famotidine 20 mg 08/06/19 21:00 08/08/19 08:26 Pepcid PO 20 mg BID RANGEL Administration Hydralazine HCl 10 mg 08/07/19 09:56 08/07/19 11:44 Apresoline SLOW IVP 10 mg Q4H PRN Administration SBP Greater Than 170 Azithromycin 500 mg/ Sodium 250 mls @ 250 mls/hr 08/06/19 21:00 08/07/19 21: 21 Chloride IVPB 250 mls 2100 RANGEL Administration Ceftriaxone Sodium 1 gm/ 100 mls @ 200 mls/hr 08/07/19 20:00 08/07/19 21:14 Sodium Chloride IVPB 100 mls 2000 RANGEL Administration Methylprednisolone Sodium Succinate 40 mg 08/06/19 23:59 08/08/19 12:39 Solu-Medrol IVP 40 mg Q6HR RANGEL Administration Nicotine 14 mg 08/07/19 11:00 08/08/19 12:33 Nicoderm Patch TD 14 mg Q24HR RANGEL Administration Zolpidem Tartrate 5 mg 08/07/19 21:21 08/07/19 21:29 Ambien PO 5 mg HS PRN Administration Insomnia - Exam General Appearance: NAD, awake alert Eye: PERRL, anicteric sclera ENT: normocephalic atraumatic, no oropharyngeal lesions Neck: supple, symmetric, no JVD, no thyromegaly, no lymphadenopathy Heart: RRR, no gallops, no rubs, normal peripheral pulses Heart - other findings: distant heart sounds Respiratory - other findings: diminished bilat, exp wheezes, coarse sounds in bases Gastrointestinal: soft, non-tender, non-distended, normal bowel sounds, no palpable masses Extremities: no cyanosis Skin: normal turgor Skin - other findings: multiple areas of excoriation, dried/crusting and flaking skin Neurological: cranial nerve grossly intact, no new deficit Musculoskeletal: normal tone, normal strength Psychiatric: normal affect, A&O x 3 Hosp A/P (1) COPD exacerbation Code(s): J44.1 - CHRONIC OBSTRUCTIVE PULMONARY DISEASE W (ACUTE) EXACERBATION Status: Acute Plan: Continue Duonebs, Solumedrol, Rocephin/Zithromax, O2 prn, overall improved (2) Acute respiratory failure with hypoxia Code(s): J96.01 - ACUTE RESPIRATORY FAILURE WITH HYPOXIA Status: Acute Plan: Improved, wean off O2 support, see above #1 (3) Hypertension Code(s): I10 - ESSENTIAL (PRIMARY) HYPERTENSION Status: Chronic Qualifiers: Hypertension type: essential hypertension Qualified Code(s): I10 - Essential (primary) hypertension Plan: Resume home BP regimen, monitor clincal response (4) Tobacco abuse Code(s): Z72.0 - TOBACCO USE Status: Chronic Plan: Tobacco cessation resources (5) Hypokalemia Code(s): E87.6 - HYPOKALEMIA Status: Acute Plan: KCL supplementation, improved (6) Basal cell carcinoma Code(s): C44.91 - BASAL CELL CARCINOMA OF SKIN, UNSPECIFIED Status: Chronic Qualifiers: Basal cell carcinoma location: unspecified site Qualified Code(s): C44.91 - Basal cell carcinoma of skin, unspecified Plan: Referral for outpt Dermatology - Plan continue antibiotics, social welfare research worker, respiratory therapy, out of bed/ambulate , DVT proph w/SCDs Stable currently Continue Solumedrol another 24h then convert to Prednisone Continue Rocephin/Zithromax Tobacco cessation resources Nicotine Patch Change Duonebs q4h Wound care consult Add Excedrin Migraine for CROOK Likely home in 24h
[2019-08-08] MEDS ORDERED: cloNIDine 0.1 MG TAB PO PRN (17:09)
[2019-08-08] MEDS ORDERED: guaiFENesin/DM ER PO SCH (17:15)
[2019-08-08] MEDS: Aspirin/APAP/Caffeine Tab (Excedrin Migraine) PO PRN ×2 (17:35→23:50)
[2019-08-08] MEDS: cefTRIAXone\\ROCEPHIN 1 GM in Sodium Chloride 0.9% 100 ML IVPB SCH (20:37)
[2019-08-08] MEDS: Azithromycin 500 MG in Sodium Chloride 0.9% 250 ML 250 ML IVPB SCH (21:36)
[2019-08-08] MEDS: hydrALAZINE 20 MG/ML VIAL SLOW IVP PRN (22:59)
[2019-08-08] MEDS: Zolpidem Tartrate 5 MG TAB PO PRN (23:50)
[2019-08-09] MEDS: methylPREDNISolone Sod Succ 40 MG VIAL IVP SCH ×3 (00:49→11:44)
[2019-08-09] MEDS: Aspirin/APAP/Caffeine Tab (Excedrin Migraine) PO PRN ×2 (07:21→15:55)
[2019-08-09] MEDS: Famotidine 20 MG TAB PO SCH (08:18)
[2019-08-09] MEDS: Enoxaparin Sodium 40 MG/0.4 ML SYRINGE SC SCH (08:18)
[2019-08-09] MEDS: hydrALAZINE 20 MG/ML VIAL SLOW IVP PRN ×2 (08:20→17:04)
[2019-08-09] MEDS ORDERED: guaiFENesin/DM ER PO SCH (09:00)
[2019-08-09] MEDS: Nicotine 14 MG PATCH TD SCH (11:44)
[2019-08-09 15:53] VITALS: TEMP 98
[2019-08-09 18:23] VITALS: BP 149/88
--- NOTE | 2019-08-09 19:24 | DIS ---
DATE OF ADMISSION: 08/06/2019 DATE OF DISCHARGE: 08/09/2019 DISCHARGE DIAGNOSES: 1. Acute chronic obstructive pulmonary disease exacerbation, improved. 2. Acute hypoxic respiratory failure secondary to #1, improved. 3. Hypertension, stable. 4. Tobacco abuse. 5. Hypokalemia, resolved. 6. Basal cell carcinoma, chronic. CONSULTATIONS: None. PERTINENT LABORATORY AND X-RAY FINDINGS: Potassium ranged between 3.3 to 3.8. Troponin I negative x3. BNP 56. CBC showed a white blood cell count ranged between 6.7 to 10.4, hemoglobin ranged between 14 to 16.4. Blood cultures dated 08/06/2019, showed 1/2 positive for bacillus species likely contaminant. Urine culture dated 08/06/2019, showed less than 10,000 colonies of mixed skin darshan. Portable chest x-ray dated 08/06/2019, showed chronic changes in bilateral lung tejada without acute process or focal consolidation. CT angiogram of the chest dated 08/06/2019, showed no evidence for pulmonary embolus. HOSPITAL COURSE: The patient was admitted to the telemetry unit after initially presenting with increased shortness of breath and hypoxia in the context of COPD exacerbation. The patient was placed on IV Solu-Medrol, DuoNeb in addition to Zithromax and given general pulmonary supportive management. The patient clinically improved with pulmonary supportive care, transitioning to room air, maintaining O2 saturations in the low 90% range. The patient was counseled regarding the need for smoking cessation and given resources prior to discharge. 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 Overall, the patient did remain clinically stable during the hospital course with telemetry monitoring showing sinus mechanism. I have examined the patient at the time of discharge and discussed followup instructions. The patient verbalized understanding and in agreement, ready for discharge on 08/09/2019. DISCHARGE MEDICATIONS: 1. Clonidine 0.1 mg p.o. b.i.d. 2. Cardizem 60 mg p.o. b.i.d. 3. Zithromax 250 mg p.o. daily x5 days. 4. Prednisone 10 mg, take two tablets p.o. b.i.d. x3 days, followed by three tablets p.o. daily x3 days, followed by two tablets p.o. daily x3 days, followed by 1 tablet p.o. daily x3 days. 5. Ventolin HFA 2 puffs inhaled q.6 hours p.r.n. shortness of breath. FOLLOWUP: The patient may follow up with her primary care provider, Freya Richards within 5-7 days of discharge. CONDITION ON DISCHARGE: Stable. ACTIVITY: Ad-bolivar. DIET: Heart healthy. CODE STATUS: Full. DISPOSITION: Home on 08/09/2019. TIME SPENT: Total time preparing and coordinating discharge 32 minutes. Job ID: [id number]
== END 2019-08-09 18:21 | disposition home or self-care (01) | DRG 189 ==
LOC: ERS 14:04 → 2NO 19:47
PROVIDERS: ADMIT Internal Medicine; ATTEND Internal Medicine
DX: J96.01 Acute respiratory failure with hypoxia (principal); J43.9 Emphysema, unspecified; Z23 Encounter for immunization; B18.2 Chronic viral hepatitis C; F32.9 Major depressive disorder, single episode, unspecified; F41.9 Anxiety disorder, unspecified; E87.6 Hypokalemia; I10 Essential (primary) hypertension; Z90.49 Acquired absence of other specified parts of digestive tract; Z86.73 Personal history of transient ischemic attack (TIA), and cerebral infarction without residual deficits; Z88.0 Allergy status to penicillin; Z79.51 Long term (current) use of inhaled steroids; Z79.899 Other long term (current) drug therapy; F17.210 Nicotine dependence, cigarettes, uncomplicated; C44.91 Basal cell carcinoma of skin, unspecified
CPT/HCPCS: 36415; 71045; 71275; 80048; 80053; 81003; 81015; 83735; 83880; 84484; 85025; 87040; 87086; 90471; 90686; 93005; 94640; 96361; 96365; 96366; 96367; 96374; 96375; G0008; J0360; J0456; J0696; J1650; J2920; J2930; J3490; J7050; J7611; J7620

== ENCOUNTER 2020-04-23 19:32 | Emergency (ER) | payer SELFPAY ==
--- NOTE | 2020-04-23 20:04 | RAD ---
XR Shoulder Lt 2 View History: Injury Comparison: None. Findings: Left anterior subcoracoid shoulder dislocation. Ribs appear to be intact. Impression: Anterior subcoracoid shoulder dislocation.
[2020-04-23] MEDS ORDERED: Fentanyl 100 MCG/2 ML VIAL ONE (21:05)
--- NOTE | 2020-04-23 21:56 | RAD ---
XR Shoulder Lt 3 View STANDARD History: Reduction x-ray Comparison: Radiograph same day Findings: Improved satisfactory alignment left shoulder dislocation. Impression: Satisfactory postreduction alignment.
== END 2020-04-23 22:40 | disposition home or self-care (01) ==
LOC: ERS 19:32
DX: S43.315A Dislocation of left scapula, initial encounter (principal); I10 Essential (primary) hypertension; Z86.73 Personal history of transient ischemic attack (TIA), and cerebral infarction without residual deficits; J44.9 Chronic obstructive pulmonary disease, unspecified; F32.9 Major depressive disorder, single episode, unspecified; F17.210 Nicotine dependence, cigarettes, uncomplicated; Z79.899 Other long term (current) drug therapy; W01.0XXA Fall on same level from slipping, tripping and stumbling without subsequent striking against object, initial encounter
CPT/HCPCS: 23650; 96374; J3010

== ENCOUNTER 2021-01-23 12:01 | Inpatient (IN) | payer OTHER, SELFPAY ==
[2021-01-23 12:47] LABS: #Basophils 0.1 thou/uL (0.0-0.2); #Eosinphils 0.2 thou/uL (0.0-0.7); #Lymphocytes 1.4 thou/uL (1.20-3.40); #Monocytes 1.5 thou/uL (0.11-0.59); #Neutrophils 14.7 thou/uL (1.40-6.50); %Basophils 0.3 % (0.0-1.0); %Lymphocytes 7.6 % (21.0-51.0); %Monocytes 8.5 % (0.0-10.0); %Neutrophils 82.5 % (42.0-75.0); Hemoglobin 12.8 g/dL (12.0-16.0); Mean Corpuscular HGB CONC 32.9 g/dL (32.0-36.0); Mean Corpuscular Volume 91.2 fL (78.0-98.0); Mean Platelet Volume 6.8 fL (7.4-10.4); Platelet Count 484 thou/uL (130-400); RBC Distribution Width 14.2 % (11.5-14.5); Red Blood Cell (RBC) Count 4.28 mill/uL (4.20-5.40); White Blood Cell (WBC) Count 17.8 thou/uL (4.8-10.8)
[2021-01-23 13:00] LABS: ALT (SGPT) 39 U/L (8-55); AST (SGOT) 37 U/L (5-34); Albumin 3.7 g/dL (3.5-5.0); Alkaline Phosphatase 171 U/L (40-110); Anion Gap 14 mmol/L (10-20); BUN (Urea Nitrogen) 15 mg/dL (9.8-20.1); Bilirubin, Total 0.3 mg/dL (0.2-1.2); Calc. Creatinine Clearance 0 mL/min (70-130); Carbon Dioxide 29 mmol/L (22-29); Chloride 99 mmol/L (98-107); Globulin 4.6 g/dL (2.4-3.5); Glucose 119 mg/dL (70-105); Protein, Total 8.3 g/dL (6.0-8.3); Sodium 140 mmol/L (136-145)
[2021-01-23 13:06] LABS: Potassium 2.4 mmol/L (3.5-5.1)
[2021-01-23] MEDS ORDERED: cefTRIAXone\\ROCEPHIN 1 GM VIAL ONE (13:22)
[2021-01-23] MEDS ORDERED: Morphine 4 MG/ML VIAL ONE (13:24)
[2021-01-23 13:32] LABS: CKMB 8.9 ng/mL (0-6.6)
[2021-01-23] MEDS ORDERED: Vancomycin 1 GM/200 ML BAG ONE (14:24)
[2021-01-23] MEDS ORDERED: Potassium Chloride 20 MEQ TAB ONE (14:24)
[2021-01-23] MEDS ORDERED: hydrALAZINE 20 MG/ML VIAL ONE ×2 (14:24→17:51)
[2021-01-23] MEDS ORDERED: Potassium Chloride 40 MEQ in Sodium Chloride 0.9% 250 ML 250 ML IVPB SCH (14:30)
[2021-01-23] MEDS ORDERED: Iopamidol-370 76% 500 ML 1 ML ONE (14:54)
[2021-01-23 16:02] LABS: Bilirubin Negative (Negative); Blood, Urine Negative (Negative); Clarity Clear (Clear); Glucose, Urine (Dipstick) Normal (Negative); Ketone, Urine Negative (Negative); Leukocyte Negative Leu/uL (Negative); Nitrite Negative (Negative); Protein, Urine (Dipstick) 10 mg/dL (Neg-Trace); Specific Gravity, Urine 1.033 (1.002-1.036); Urobilinogen Normal mg/dL (Less than 2)
[2021-01-23 16:12] LABS: Amphetamine Detected (NotDetected); Barbiturates Screen Not Detected (NotDetected); Benzodiazepine Screen Not Detected (NotDetected); Cocaine Metabolite Screen Not Detected (NotDetected); Medtox Control Line Valid? VALID (VALID); Medtox Reader # READER 4; Methadone Not Detected (NotDetected); Methamphetamine Detected (NotDetected); Opiate Screen Detected (NotDetected); Oxycodone Screen Not Detected (NotDetected); Phencyclidine (PCP) Not Detected (NotDetected); THC/Cannabinoid Screen Detected (NotDetected); Tricyclic Screen Not Detected (NotDetected)
[2021-01-23] MEDS ORDERED: Electrolyte Replacement Protocol 1 EACH FS ONE (17:04)
[2021-01-23] MEDS ORDERED: Ondansetron ODT 4 MG TAB PO PRN (17:04)
[2021-01-23] MEDS ORDERED: Morphine 4 MG/ML VIAL SLOW IVP PRN (17:04)
[2021-01-23] MEDS ORDERED: Acetaminophen 325 MG TAB PO PRN (17:04)
[2021-01-23] MEDS ORDERED: Electrolyte Replacement Protocol FS PRN (17:30)
[2021-01-23] MEDS ORDERED: HYDROcodone/Acetaminophen 5/325 mg Tablet ONE (17:51)
[2021-01-23] MEDS: hydrALAZINE 20 MG/ML VIAL SLOW IVP PRN (17:54)
[2021-01-23] MEDS: HYDROcodone/Acetaminophen 5/325 mg Tablet PO PRN ×2 (17:56→23:27)
[2021-01-23] MEDS ORDERED: Magnesium 2 GM/50 ML 2 GM in Premix Bag 1 BAG IVPB SCH (18:45)
[2021-01-23] MEDS: Nicotine 21 MG PATCH TD SCH (18:57)
[2021-01-23 22:32] LABS: Anion Gap 12 mmol/L (10-20); BUN (Urea Nitrogen) 8 mg/dL (9.8-20.1); Calc. Creatinine Clearance 0 mL/min (70-130); Calcium 8.2 mg/dL (7.8-10.44); Carbon Dioxide 27 mmol/L (22-29); Chloride 102 mmol/L (98-107); Glucose 123 mg/dL (70-105); Sodium 138 mmol/L (136-145)
[2021-01-23 22:43] LABS: Potassium 2.7 mmol/L (3.5-5.1)
[2021-01-24] MEDS: hydrALAZINE 20 MG/ML VIAL SLOW IVP PRN ×4 (00:21→15:04)
[2021-01-24 02:32] LABS: SARS-CoV-2 PCR by NAA Not Detected (NotDetected)
[2021-01-24 02:35] VITALS: BMI 22.0
[2021-01-24] MEDS: Vancomycin 1 GM in Premix Bag 1 BAG IVPB SCH ×2 (04:06→14:05)
[2021-01-24 04:30] LABS: #Eosinphils 0.2 thou/uL (0.0-0.7); #Lymphocytes 1.5 thou/uL (1.20-3.40); #Monocytes 1.4 thou/uL (0.11-0.59); #Neutrophils 13.7 thou/uL (1.40-6.50); %Basophils 0.2 % (0.0-1.0); %Eosinophils 1.1 % (0.0-10.0); %Lymphocytes 8.8 % (21.0-51.0); %Monocytes 8.3 % (0.0-10.0); %Neutrophils 81.7 % (42.0-75.0); Hemoglobin 11.8 g/dL (12.0-16.0); Mean Corpuscular HGB CONC 31.3 g/dL (32.0-36.0); Mean Corpuscular Hemoglobin 28.9 pg (27.0-31.0); Mean Corpuscular Volume 92.4 fL (78.0-98.0); Mean Platelet Volume 6.8 fL (7.4-10.4); Platelet Count 427 thou/uL (130-400); RBC Distribution Width 14.4 % (11.5-14.5); Red Blood Cell (RBC) Count 4.06 mill/uL (4.20-5.40); White Blood Cell (WBC) Count 16.7 thou/uL (4.8-10.8)
[2021-01-24 04:47] LABS: Anion Gap 13 mmol/L (10-20); BUN (Urea Nitrogen) 10 mg/dL (9.8-20.1); Calc. Creatinine Clearance 92 mL/min (70-130); Calcium 8.1 mg/dL (7.8-10.44); Carbon Dioxide 27 mmol/L (22-29); Chloride 101 mmol/L (98-107); Glucose 92 mg/dL (70-105); Sodium 138 mmol/L (136-145)
[2021-01-24 04:57] LABS: Potassium 2.5 mmol/L (3.5-5.1)
[2021-01-24] MEDS: Potassium Chloride 40 MEQ in Sodium Chloride 0.9% 250 ML 250 ML IVPB SCH ×2 (10:10→15:05)
[2021-01-24] MEDS: HYDROcodone/Acetaminophen 5/325 mg Tablet PO PRN ×2 (11:46→22:20)
[2021-01-24] MEDS ORDERED: cefTRIAXone\\ROCEPHIN 1 GM in Sodium Chloride 0.9% 100 ML IVPB SCH (14:00)
[2021-01-24] MEDS ORDERED: Lidocaine 1% w/Epinephrine 1:100K 20 ML VIAL ONE (15:18)
[2021-01-24] MEDS: cloNIDine 0.1 MG TAB PO SCH (22:20)
[2021-01-24] MEDS: Nicotine 21 MG PATCH TD SCH (22:21)
[2021-01-25] MEDS: HYDROcodone/Acetaminophen 5/325 mg Tablet PO PRN ×2 (02:25→10:07)
[2021-01-25] MEDS: Vancomycin 1 GM in Premix Bag 1 BAG IVPB SCH ×2 (02:26→16:02)
[2021-01-25 04:46] LABS: #Basophils 0.1 thou/uL (0.0-0.2); #Eosinphils 0.1 thou/uL (0.0-0.7); #Lymphocytes 1.5 thou/uL (1.20-3.40); #Monocytes 1.3 thou/uL (0.11-0.59); #Neutrophils 10.5 thou/uL (1.40-6.50); %Basophils 0.4 % (0.0-1.0); %Eosinophils 0.6 % (0.0-10.0); %Lymphocytes 11.4 % (21.0-51.0); %Monocytes 9.7 % (0.0-10.0); %Neutrophils 77.9 % (42.0-75.0); Hemoglobin 10.6 g/dL (12.0-16.0); Mean Corpuscular HGB CONC 31.3 g/dL (32.0-36.0); Mean Corpuscular Hemoglobin 29.7 pg (27.0-31.0); Mean Platelet Volume 7.1 fL (7.4-10.4); Platelet Count 340 thou/uL (130-400); RBC Distribution Width 14.4 % (11.5-14.5); Red Blood Cell (RBC) Count 3.58 mill/uL (4.20-5.40); White Blood Cell (WBC) Count 13.5 thou/uL (4.8-10.8)
[2021-01-25 05:09] LABS: Anion Gap 12 mmol/L (10-20); BUN (Urea Nitrogen) 8 mg/dL (9.8-20.1); Calc. Creatinine Clearance 99 mL/min (70-130); Carbon Dioxide 24 mmol/L (22-29); Chloride 103 mmol/L (98-107); Glucose 110 mg/dL (70-105); Sodium 136 mmol/L (136-145)
[2021-01-25 05:10] LABS: Potassium 2.8 mmol/L (3.5-5.1)
[2021-01-25] MEDS: Potassium Chloride 20 MEQ TAB PO SCH ×2 (06:42→09:59)
[2021-01-25] MEDS: Mometasone 100 MCG/Formoterol 5 MCG 120 PUFF INHALER INH SCH ×2 (06:59→19:25)
[2021-01-25] MEDS: cloNIDine 0.1 MG TAB PO SCH ×2 (09:59→21:40)
[2021-01-25] MEDS ORDERED: Iopamidol-370 76% 500 ML 1 ML ONE (14:05)
[2021-01-25 15:13] LABS: Vancomycin, Trough 10.3 ug/mL
[2021-01-25 16:33] LABS: Potassium 3.8 mmol/L (3.5-5.1)
[2021-01-25] MEDS ORDERED: traMADol HCl 50 MG TAB PO PRN (17:02)
[2021-01-25] MEDS: Nicotine 21 MG PATCH TD SCH (18:47)
[2021-01-25] MEDS: Ondansetron PF 4 MG/2 ML Vial IVP PRN (21:11)
[2021-01-26] MEDS: Vancomycin 1 GM in Premix Bag 1 BAG IVPB SCH ×2 (03:08→15:45)
[2021-01-26] MEDS: Ondansetron PF 4 MG/2 ML Vial IVP PRN ×2 (03:38→17:15)
[2021-01-26 04:33] LABS: #Eosinphils 0.1 thou/uL (0.0-0.7); #Lymphocytes 1.3 thou/uL (1.20-3.40); #Monocytes 0.9 thou/uL (0.11-0.59); #Neutrophils 10.9 thou/uL (1.40-6.50); %Basophils 0.2 % (0.0-1.0); %Eosinophils 0.8 % (0.0-10.0); %Lymphocytes 9.7 % (21.0-51.0); %Monocytes 6.8 % (0.0-10.0); %Neutrophils 82.5 % (42.0-75.0); Hemoglobin 11.9 g/dL (12.0-16.0); Mean Corpuscular HGB CONC 31.5 g/dL (32.0-36.0); Mean Corpuscular Hemoglobin 29.8 pg (27.0-31.0); Mean Corpuscular Volume 94.6 fL (78.0-98.0); Mean Platelet Volume 6.9 fL (7.4-10.4); Platelet Count 344 thou/uL (130-400); RBC Distribution Width 14.3 % (11.5-14.5); White Blood Cell (WBC) Count 13.2 thou/uL (4.8-10.8)
[2021-01-26 04:52] LABS: Anion Gap 14 mmol/L (10-20); BUN (Urea Nitrogen) 9 mg/dL (9.8-20.1); Calc. Creatinine Clearance 99 mL/min (70-130); Calcium 8.9 mg/dL (7.8-10.44); Carbon Dioxide 22 mmol/L (22-29); Chloride 103 mmol/L (98-107); Glucose 95 mg/dL (70-105); Magnesium 1.7 mg/dL (1.6-2.6); Potassium 3.4 mmol/L (3.5-5.1); Sodium 136 mmol/L (136-145)
[2021-01-26] MEDS ORDERED: Magnesium 2 GM/50 ML 2 GM in Premix Bag 1 BAG IVPB SCH (06:30)
[2021-01-26] MEDS ORDERED: Potassium Chloride 20 MEQ TAB PO SCH ×2 (06:45→10:00)
[2021-01-26] MEDS: Mometasone 100 MCG/Formoterol 5 MCG 120 PUFF INHALER INH SCH ×2 (07:20→18:50)
[2021-01-26] MEDS: cloNIDine 0.1 MG TAB PO SCH ×2 (09:05→20:37)
[2021-01-26] MEDS: HYDROcodone/Acetaminophen 5/325 mg Tablet PO PRN (12:19)
[2021-01-26] MEDS: Nicotine 21 MG PATCH TD SCH (17:16)
[2021-01-27 02:28] LABS: Vancomycin, Trough 12.9 ug/mL
[2021-01-27] MEDS: Vancomycin HCl 750 MG in Sodium Chloride 0.9% 250 ML 250 ML IVPB SCH ×2 (03:41→09:37)
[2021-01-27] MEDS: Ondansetron PF 4 MG/2 ML Vial IVP PRN (03:55)
[2021-01-27] MEDS: Vancomycin 1 GM in Premix Bag 1 BAG IVPB SCH (05:24)
[2021-01-27] MEDS: Mometasone 100 MCG/Formoterol 5 MCG 120 PUFF INHALER INH SCH ×2 (07:25→19:12)
[2021-01-27] MEDS: cloNIDine 0.1 MG TAB PO SCH ×2 (08:02→21:06)
[2021-01-27] MEDS ORDERED: traMADol HCl 50 MG TAB PO PRN (15:33)
[2021-01-27] MEDS: hydrALAZINE 20 MG/ML VIAL SLOW IVP PRN (16:07)
[2021-01-27] MEDS: Nicotine 21 MG PATCH TD SCH (17:10)
[2021-01-27] MEDS: HYDROcodone/Acetaminophen 5/325 mg Tablet PO PRN (23:54)
[2021-01-28 03:02] LABS: #Eosinphils 0.1 thou/uL (0.0-0.7); #Monocytes 1.2 thou/uL (0.11-0.59); #Neutrophils 10.8 thou/uL (1.40-6.50); %Basophils 0.3 % (0.0-1.0); %Eosinophils 0.6 % (0.0-10.0); %Lymphocytes 7.5 % (21.0-51.0); %Neutrophils 82.6 % (42.0-75.0); Hemoglobin 10.6 g/dL (12.0-16.0); Mean Corpuscular HGB CONC 31.3 g/dL (32.0-36.0); Mean Corpuscular Hemoglobin 29.4 pg (27.0-31.0); Mean Corpuscular Volume 93.8 fL (78.0-98.0); Mean Platelet Volume 6.7 fL (7.4-10.4); Platelet Count 303 thou/uL (130-400); White Blood Cell (WBC) Count 13.1 thou/uL (4.8-10.8)
[2021-01-28 03:21] LABS: Vancomycin, Trough 6.2 ug/mL
[2021-01-28 03:33] LABS: Anion Gap 12 mmol/L (10-20); BUN (Urea Nitrogen) 8 mg/dL (9.8-20.1); Calc. Creatinine Clearance 97 mL/min (70-130); Calcium 8.4 mg/dL (7.8-10.44); Carbon Dioxide 28 mmol/L (22-29); Chloride 99 mmol/L (98-107); Glucose 97 mg/dL (70-105); Potassium 3.1 mmol/L (3.5-5.1); Sodium 136 mmol/L (136-145)
[2021-01-28] MEDS ORDERED: Potassium Chloride 20 MEQ TAB PO SCH (06:30)
[2021-01-28] MEDS: Mometasone 100 MCG/Formoterol 5 MCG 120 PUFF INHALER INH SCH ×2 (07:06→19:35)
[2021-01-28] MEDS: cloNIDine 0.1 MG TAB PO SCH ×2 (07:58→20:38)
[2021-01-28] MEDS: HYDROcodone/Acetaminophen 5/325 mg Tablet PO PRN ×2 (08:41→20:37)
[2021-01-28] MEDS: Ondansetron PF 4 MG/2 ML Vial IVP PRN (13:24)
[2021-01-28] MEDS: Nicotine 21 MG PATCH TD SCH (18:03)
[2021-01-29] MEDS: HYDROcodone/Acetaminophen 5/325 mg Tablet PO PRN ×2 (04:20→13:23)
[2021-01-29] MEDS: hydrALAZINE 20 MG/ML VIAL SLOW IVP PRN ×2 (04:21→15:51)
[2021-01-29] MEDS: Mometasone 100 MCG/Formoterol 5 MCG 120 PUFF INHALER INH SCH (07:54)
[2021-01-29] MEDS: cloNIDine 0.1 MG TAB PO SCH (08:06)
[2021-01-29 15:59] VITALS: TEMP 98.6
[2021-01-29 16:24] VITALS: BP 155/78
[2021-01-29] MEDS: Nicotine 21 MG PATCH TD SCH (18:04)
== END 2021-01-29 18:38 | disposition home or self-care (01) | DRG 872 ==
LOC: ERS 12:01 → ERHOLD 15:08 → 2NO 22:26
PROVIDERS: ADMIT Internal Medicine; ATTEND Internal Medicine
PROC: 0HBDXZX Excision of Right Lower Arm Skin, External Approach, Diagnostic (ICD-10-PCS; principal; 2021-01-25)
DX: A41.9 Sepsis, unspecified organism (principal); I96 Gangrene, not elsewhere classified; C44.612 Basal cell carcinoma of skin of right upper limb, including shoulder; Z20.822 Contact with and (suspected) exposure to COVID-19; I10 Essential (primary) hypertension; F17.210 Nicotine dependence, cigarettes, uncomplicated; F32.9 Major depressive disorder, single episode, unspecified; J43.9 Emphysema, unspecified; F12.10 Cannabis abuse, uncomplicated; I48.91 Unspecified atrial fibrillation; E87.6 Hypokalemia; I16.0 Hypertensive urgency; L40.9 Psoriasis, unspecified; J98.4 Other disorders of lung; B96.5 Pseudomonas (aeruginosa) (mallei) (pseudomallei) as the cause of diseases classified elsewhere; B95.4 Other streptococcus as the cause of diseases classified elsewhere; Z90.49 Acquired absence of other specified parts of digestive tract; Z88.0 Allergy status to penicillin; Z79.899 Other long term (current) drug therapy; Z79.82 Long term (current) use of aspirin; Z79.52 Long term (current) use of systemic steroids; Z86.19 Personal history of other infectious and parasitic diseases
CPT/HCPCS: 36415; 71045; 71260; 80048; 80053; 80202; 80306; 81003; 82553; 83605; 83735; 84484; 85025; 85652; 86140; 87040; 87070; 87077; 87186; 87205; 87635; 88305; 88341; 88342; 93005; 94640; 96365; 96366; 96367; 96375; J0360; J0696; J1956; J2270; J2405; J3370; J3475; J3480; J3490; J7050; J7620; Q0162; Q9967; U0003; U0005

== ENCOUNTER 2021-02-26 08:55 | Outpatient (CLI) | payer OTHER ==
[2021-02-26] MEDS ORDERED: Iopamidol 370 76% 100 ML VIAL ONE (09:37)
== END 2021-02-26 08:56 | disposition home or self-care (01) ==
LOC: CT 08:55
PROVIDERS: ATTEND Internal Medicine Hematology & Oncology
DX: C44.509 Unspecified malignant neoplasm of skin of other part of trunk (principal); R91.8 Other nonspecific abnormal finding of lung field; N20.0 Calculus of kidney
CPT/HCPCS: 74177; Q9967

== ENCOUNTER 2021-03-14 09:13 | Day surgery (SDC) | payer OTHER ==
[2021-03-14] MEDS ORDERED: CEMIPLIMAB RWLC IV SCH (09:30)
[2021-03-14] MEDS ORDERED: SODIUM CHLORIDE 0.9% IV SCH (09:30)
[2021-03-14 10:06] VITALS: BP 164/87; TEMP 97.7
[2021-03-14] MEDS ORDERED: Sodium Chloride 0.9% 20 ML ONE (10:26)
== END 2021-03-14 10:37 | disposition home or self-care (01) ==
LOC: ONC/OP 09:13
PROVIDERS: ATTEND Internal Medicine Hematology & Oncology
DX: Z51.12 Encounter for antineoplastic immunotherapy (principal); C44.509 Unspecified malignant neoplasm of skin of other part of trunk; J44.9 Chronic obstructive pulmonary disease, unspecified; I10 Essential (primary) hypertension; I48.91 Unspecified atrial fibrillation; F17.210 Nicotine dependence, cigarettes, uncomplicated; B19.20 Unspecified viral hepatitis C without hepatic coma; Z79.01 Long term (current) use of anticoagulants; Z79.899 Other long term (current) drug therapy; Z88.0 Allergy status to penicillin
CPT/HCPCS: 96413

== ENCOUNTER 2021-03-20 14:34 | Inpatient (IN) | payer OTHER ==
[2021-03-20 15:54] LABS: Hemoglobin 12.1 g/dL (12.0-16.0); Mean Corpuscular HGB CONC 32.9 g/dL (32.0-36.0); Mean Corpuscular Hemoglobin 29.8 pg (27.0-31.0); Mean Corpuscular Volume 90.6 fL (78.0-98.0); Mean Platelet Volume 7.2 fL (7.4-10.4); Platelet Count 408 thou/uL (130-400); RBC Distribution Width 13.9 % (11.5-14.5); Red Blood Cell (RBC) Count 4.05 mill/uL (4.20-5.40); White Blood Cell (WBC) Count 24.2 thou/uL (4.8-10.8)
[2021-03-20] MEDS ORDERED: Morphine 4 MG/ML VIAL ONE ×2 (15:58→17:44)
[2021-03-20] MEDS ORDERED: Ondansetron PF 4 MG/2 ML Vial ONE ×2 (16:05→17:44)
[2021-03-20 16:12] LABS: Band 11 % (5-11); Lymphocytes 5 % (21-51); MDiff Complete? YES; Monocytes 7 % (0-10); Neutrophil 77 % (42-75)
[2021-03-20] MEDS ORDERED: Cefepime 2 GM VIAL ONE (16:46)
[2021-03-20 17:17] LABS: Chloride 100 mmol/L (98-107); Sodium 135 mmol/L (136-145)
[2021-03-20 17:18] LABS: Calcium 8.6 mg/dL (7.8-10.44); Glucose 103 mg/dL (70-105)
[2021-03-20 17:19] LABS: Globulin 4.2 g/dL (2.4-3.5); Protein, Total 7.2 g/dL (6.0-8.3)
[2021-03-20 17:20] LABS: Anion Gap 12 mmol/L (10-20); Bilirubin, Total 0.5 mg/dL (0.2-1.2); Carbon Dioxide 26 mmol/L (22-29)
[2021-03-20 17:21] LABS: Alkaline Phosphatase 178 U/L (40-110)
[2021-03-20 17:22] LABS: Calc. Creatinine Clearance 0 mL/min (70-130)
[2021-03-20 17:23] LABS: BUN (Urea Nitrogen) 10 mg/dL (9.8-20.1)
[2021-03-20 17:24] LABS: ALT (SGPT) 22 U/L (8-55); AST (SGOT) 30 U/L (5-34)
[2021-03-20 17:25] LABS: Potassium 2.7 mmol/L (3.5-5.1)
[2021-03-20] MEDS ORDERED: VANCOMYCIN 1.25 GM/250 ML BAG 1.25 GM in Premix Bag 1 BAG IVPB SCH ×2 (18:00→22:45)
[2021-03-20] MEDS ORDERED: hydrALAZINE 20 MG/ML VIAL SLOW IVP PRN (18:23)
[2021-03-20] MEDS ORDERED: Enoxaparin Sodium 40 MG/0.4 ML SYRINGE SC SCH (18:30)
[2021-03-20] MEDS ORDERED: Potassium Phosphate 30 MMOL in Sodium Chloride 0.9% 250 ML 250 ML IVPB SCH (19:00)
[2021-03-20] MEDS: Morphine 4 MG/ML VIAL SLOW IVP PRN (19:38)
[2021-03-20] MEDS: Ondansetron PF 4 MG/2 ML Vial IVP PRN (19:43)
[2021-03-20 22:11] VITALS: BMI 21.9
[2021-03-21] MEDS: Morphine 4 MG/ML VIAL SLOW IVP PRN ×2 (01:11→09:34)
[2021-03-21] MEDS: Ondansetron PF 4 MG/2 ML Vial IVP PRN (01:11)
[2021-03-21 03:07] LABS: SARS-CoV-2 NAA Rapid Test Not Detected (NotDetected)
[2021-03-21] MEDS: Cefepime 2 GM in Sodium Chloride 0.9% 100 ML IVPB SCH ×2 (05:01→16:56)
[2021-03-21] MEDS ORDERED: Acetaminophen 325 MG TAB PO PRN (05:15)
[2021-03-21] MEDS: Mometasone 100 MCG/Formoterol 5 MCG 120 PUFF INHALER INH SCH ×2 (07:27→19:55)
[2021-03-21] MEDS: cloNIDine 0.1 MG TAB PO SCH ×3 (09:40→21:06)
[2021-03-21] MEDS: Enoxaparin Sodium 40 MG/0.4 ML SYRINGE SC SCH (09:40)
[2021-03-21] MEDS ORDERED: Vancomycin HCl 750 MG in Premix Bag 1 BAG IVPB SCH (11:00)
[2021-03-21] MEDS: Vancomycin HCl 750 MG in Sodium Chloride 0.9% 250 ML 250 ML IVPB SCH (12:30)
[2021-03-21] MEDS: HYDROcodone/Acetaminophen 10/325 mg Tablet PO PRN ×3 (14:00→23:04)
[2021-03-21 17:08] LABS: Anion Gap 9 mmol/L (10-20); BUN (Urea Nitrogen) 8 mg/dL (9.8-20.1); Calc. Creatinine Clearance 78 mL/min (70-130); Calcium 8.3 mg/dL (7.8-10.44); Carbon Dioxide 29 mmol/L (22-29); Chloride 104 mmol/L (98-107); Glucose 94 mg/dL (70-105); Potassium 3.4 mmol/L (3.5-5.1); Sodium 139 mmol/L (136-145)
[2021-03-22] MEDS: Vancomycin HCl 750 MG in Sodium Chloride 0.9% 250 ML 250 ML IVPB SCH ×2 (01:48→12:46)
[2021-03-22] MEDS: Cefepime 2 GM in Sodium Chloride 0.9% 100 ML IVPB SCH ×2 (03:36→16:44)
[2021-03-22] MEDS: HYDROcodone/Acetaminophen 10/325 mg Tablet PO PRN ×4 (03:37→22:28)
[2021-03-22] MEDS: Ondansetron PF 4 MG/2 ML Vial IVP PRN (04:58)
[2021-03-22] MEDS: Morphine 4 MG/ML VIAL SLOW IVP PRN (04:58)
[2021-03-22 05:34] LABS: #Basophils 0.1 thou/uL (0.0-0.2); #Eosinphils 0.2 thou/uL (0.0-0.7); #Lymphocytes 1.5 thou/uL (1.20-3.40); #Monocytes 1.5 thou/uL (0.11-0.59); #Neutrophils 16.6 thou/uL (1.40-6.50); %Basophils 0.3 % (0.0-1.0); %Eosinophils 1.1 % (0.0-10.0); %Lymphocytes 7.7 % (21.0-51.0); %Monocytes 7.4 % (0.0-10.0); %Neutrophils 83.5 % (42.0-75.0); Hemoglobin 9.9 g/dL (12.0-16.0); Mean Corpuscular HGB CONC 30.5 g/dL (32.0-36.0); Mean Corpuscular Hemoglobin 28.6 pg (27.0-31.0); Mean Corpuscular Volume 93.8 fL (78.0-98.0); Mean Platelet Volume 6.9 fL (7.4-10.4); Platelet Count 333 thou/uL (130-400); RBC Distribution Width 13.9 % (11.5-14.5); Red Blood Cell (RBC) Count 3.45 mill/uL (4.20-5.40); White Blood Cell (WBC) Count 19.9 thou/uL (4.8-10.8)
[2021-03-22 05:56] LABS: ALT (SGPT) 16 U/L (8-55); AST (SGOT) 22 U/L (5-34); Albumin 2.5 g/dL (3.5-5.0); Alkaline Phosphatase 139 U/L (40-110); Anion Gap 10 mmol/L (10-20); BUN (Urea Nitrogen) 10 mg/dL (9.8-20.1); Bilirubin, Total 0.2 mg/dL (0.2-1.2); Calc. Creatinine Clearance 84 mL/min (70-130); Calcium 7.9 mg/dL (7.8-10.44); Carbon Dioxide 25 mmol/L (22-29); Chloride 106 mmol/L (98-107); Globulin 3.5 g/dL (2.4-3.5); Glucose 95 mg/dL (70-105); Potassium 3.5 mmol/L (3.5-5.1); Sodium 137 mmol/L (136-145)
[2021-03-22] MEDS: Mometasone 100 MCG/Formoterol 5 MCG 120 PUFF INHALER INH SCH ×2 (08:08→19:09)
[2021-03-22] MEDS ORDERED: Albuterol 200 PUFF (6.7GM INHALER) INH PRN (08:32)
[2021-03-22] MEDS: Potassium Chloride 20 MEQ TAB PO SCH (08:38)
[2021-03-22] MEDS: cloNIDine 0.1 MG TAB PO SCH ×3 (08:38→20:16)
[2021-03-22] MEDS: Enoxaparin Sodium 40 MG/0.4 ML SYRINGE SC SCH (08:39)
[2021-03-22 10:20] LABS: Vancomycin, Trough 12.4 ug/mL
[2021-03-22 12:54] LABS: Vancomycin, Trough 11.3 ug/mL
[2021-03-23] MEDS ORDERED: Vancomycin 1 GM in Premix Bag 1 BAG IVPB SCH (01:00)
[2021-03-23] MEDS: HYDROcodone/Acetaminophen 10/325 mg Tablet PO PRN ×2 (02:11→08:31)
[2021-03-23] MEDS: Cefepime 2 GM in Sodium Chloride 0.9% 100 ML IVPB SCH (03:06)
[2021-03-23 04:00] LABS: #Eosinphils 0.2 thou/uL (0.0-0.7); #Lymphocytes 1.5 thou/uL (1.20-3.40); #Monocytes 1.3 thou/uL (0.11-0.59); %Basophils 0.3 % (0.0-1.0); %Eosinophils 0.9 % (0.0-10.0); %Lymphocytes 8.5 % (21.0-51.0); %Monocytes 7.2 % (0.0-10.0); %Neutrophils 83.2 % (42.0-75.0); Hemoglobin 10.2 g/dL (12.0-16.0); Mean Corpuscular HGB CONC 30.7 g/dL (32.0-36.0); Mean Corpuscular Volume 94.5 fL (78.0-98.0); Mean Platelet Volume 7.2 fL (7.4-10.4); Platelet Count 324 thou/uL (130-400); RBC Distribution Width 14.1 % (11.5-14.5)
[2021-03-23 04:20] LABS: Anion Gap 10 mmol/L (10-20); BUN (Urea Nitrogen) 11 mg/dL (9.8-20.1); Calc. Creatinine Clearance 85 mL/min (70-130); Calcium 8.2 mg/dL (7.8-10.44); Carbon Dioxide 25 mmol/L (22-29); Chloride 105 mmol/L (98-107); Glucose 113 mg/dL (70-105); Potassium 3.7 mmol/L (3.5-5.1); Sodium 136 mmol/L (136-145)
[2021-03-23] MEDS: Mometasone 100 MCG/Formoterol 5 MCG 120 PUFF INHALER INH SCH (07:45)
[2021-03-23 08:20] VITALS: BP 140/81; TEMP 98.3
[2021-03-23] MEDS: cloNIDine 0.1 MG TAB PO SCH (08:31)
[2021-03-23] MEDS: Enoxaparin Sodium 40 MG/0.4 ML SYRINGE SC SCH (08:31)
[2021-03-23] MEDS: Potassium Chloride 20 MEQ TAB PO SCH (08:32)
== END 2021-03-23 14:00 | disposition home or self-care (01) | DRG 872 ==
LOC: ERS 14:34 → ONC 17:06
PROVIDERS: ADMIT Internal Medicine; ATTEND Internal Medicine
DX: A40.9 Streptococcal sepsis, unspecified (principal); I96 Gangrene, not elsewhere classified; I10 Essential (primary) hypertension; J44.9 Chronic obstructive pulmonary disease, unspecified; C44.622 Squamous cell carcinoma of skin of right upper limb, including shoulder; L98.499 Non-pressure chronic ulcer of skin of other sites with unspecified severity; I25.10 Atherosclerotic heart disease of native coronary artery without angina pectoris; B18.2 Chronic viral hepatitis C; E87.6 Hypokalemia; I48.91 Unspecified atrial fibrillation; R09.02 Hypoxemia; F17.210 Nicotine dependence, cigarettes, uncomplicated; Z20.822 Contact with and (suspected) exposure to COVID-19; F32.9 Major depressive disorder, single episode, unspecified; Z88.0 Allergy status to penicillin; Z90.49 Acquired absence of other specified parts of digestive tract; Z98.890 Other specified postprocedural states
CPT/HCPCS: 36415; 80048; 80053; 80202; 83605; 83735; 85025; 87040; 87070; 87077; 87205; 94640; 96365; 96375; 96376; J0360; J0692; J1650; J2270; J2405; J3370; J3490; J7050; J7620; U0002; U0005

== ENCOUNTER 2021-04-03 09:51 | Day surgery (SDC) | payer OTHER ==
[~2021-04-03 09:51] MED LIST changes: -Albuterol Sulfate 1.25 MG/3 ML NEB ONE; +CEMIPLIMAB RWLC IV SCH; -Diprivan 40 ML ONE; -Fentanyl 100 MCG/2 ML VIAL ONE; -Isoproterenol 0.2 MG/1 ML AMP ONE; -Labetalol HCl 100 MG/20 ML VIAL ONE; -Midazolam HCl 2 mg/2 ml Vial ONE; -Ondansetron HCl/PF 4 MG/2 ML Vial IVP PRN; -Ondansetron HCl/PF 4 MG/2 ML Vial ONE; -Promethazine HCl 25 MG/ML VIAL IM/IV PRN; -Propofol 200 MG/20 ML VIAL ONE; -Propofol 500 MG/50 ML VIAL ONE; +SODIUM CHLORIDE 0.9% IV SCH; +Sodium Chloride 0.9% 20 ML ONE
[2021-04-03] MEDS ORDERED: cloNIDine 0.2 MG TAB PO SCH (10:15)
[2021-04-03 11:05] VITALS: BP 194/114
== END 2021-04-03 11:05 | disposition home or self-care (01) ==
LOC: ONC/OP 09:51
PROVIDERS: ATTEND Internal Medicine Hematology & Oncology
DX: Z51.12 Encounter for antineoplastic immunotherapy (principal); C44.509 Unspecified malignant neoplasm of skin of other part of trunk; Z88.0 Allergy status to penicillin
CPT/HCPCS: 96413

== ENCOUNTER 2021-04-24 09:36 | Day surgery (SDC) | payer OTHER ==
[~2021-04-24 09:36] MED LIST changes: -Sodium Chloride 0.9% 20 ML ONE
[2021-04-24] MEDS ORDERED: Sodium Chloride 0.9% 20 ML ONE (09:41)
[2021-04-24 09:56] VITALS: BP 190/91; TEMP 97.5
== END 2021-04-24 12:26 | disposition home or self-care (01) ==
LOC: ONC/OP 09:36
PROVIDERS: ATTEND Internal Medicine Hematology & Oncology
DX: Z51.12 Encounter for antineoplastic immunotherapy (principal); C44.509 Unspecified malignant neoplasm of skin of other part of trunk; Z88.0 Allergy status to penicillin
CPT/HCPCS: 96413

== ENCOUNTER 2021-05-15 09:42 | Day surgery (SDC) | payer OTHER ==
[2021-05-15 10:10] VITALS: BP 127/75; TEMP 97.9
== END 2021-05-15 16:28 | disposition home or self-care (01) ==
LOC: ONC/OP 09:42
PROVIDERS: ATTEND Internal Medicine Hematology & Oncology
DX: Z51.12 Encounter for antineoplastic immunotherapy (principal); C44.509 Unspecified malignant neoplasm of skin of other part of trunk; Z80.0 Family history of malignant neoplasm of digestive organs
CPT/HCPCS: 96413

== ENCOUNTER 2021-06-05 11:57 | Day surgery (SDC) | payer OTHER ==
[~2021-06-05 11:57] MED LIST changes: -CEMIPLIMAB RWLC IV SCH; +CEMIPLIMAB RWLC IVPB SCH; -SODIUM CHLORIDE 0.9% IV SCH; +SODIUM CHLORIDE 0.9% IVPB SCH
== END 2021-06-05 13:21 | disposition home or self-care (01) ==
LOC: ONC/OP 11:57
PROVIDERS: ATTEND Internal Medicine Hematology & Oncology
DX: Z51.12 Encounter for antineoplastic immunotherapy (principal); C44.509 Unspecified malignant neoplasm of skin of other part of trunk; Z88.0 Allergy status to penicillin
CPT/HCPCS: 96413

== ENCOUNTER 2021-07-31 09:09 | Day surgery (SDC) | payer OTHER ==
[2021-07-31 09:38] VITALS: BP 136/80; TEMP 97.7
[2021-07-31] MEDS ORDERED: Sodium Chloride 0.9% 20 ML ONE (10:17)
== END 2021-07-31 11:24 | disposition home or self-care (01) ==
LOC: ONC/OP 09:09
PROVIDERS: ATTEND Internal Medicine Hematology & Oncology
DX: Z51.12 Encounter for antineoplastic immunotherapy (principal); C44.509 Unspecified malignant neoplasm of skin of other part of trunk; Z88.0 Allergy status to penicillin
CPT/HCPCS: 96413; J3490

== ENCOUNTER 2021-08-21 09:34 | Day surgery (SDC) | payer OTHER ==
[2021-08-21 14:51] VITALS: BP 138/64; TEMP 97.8
== END 2021-08-21 15:08 | disposition home or self-care (01) ==
LOC: ONC/OP 09:34
PROVIDERS: ATTEND Internal Medicine Hematology & Oncology
DX: Z51.12 Encounter for antineoplastic immunotherapy (principal); C44.509 Unspecified malignant neoplasm of skin of other part of trunk; Z88.0 Allergy status to penicillin
CPT/HCPCS: 96365; J3490

== ENCOUNTER 2021-08-28 09:02 | Outpatient (CLI) | payer OTHER | END 2021-08-28 09:03 | disposition home or self-care (01) | LOC: CT 09:02 | PROVIDERS: ATTEND Radiology Radiation Oncology | DX: C44.90 Unspecified malignant neoplasm of skin, unspecified (principal); R59.0 Localized enlarged lymph nodes | CPT/HCPCS: 71250 ==

== ENCOUNTER 2021-09-11 09:34 | Day surgery (SDC) | payer OTHER ==
[~2021-09-11 09:34] MED LIST changes: +Ferumoxytol (ERSD) 510 MG in Sodium Chloride 0.9% 150 ML IVPB SCH
[2021-09-11] MEDS ORDERED: Sodium Chloride 0.9% 20 ML ONE (09:40)
== END 2021-09-11 10:59 | disposition home or self-care (01) ==
LOC: ONC/OP 09:34
PROVIDERS: ATTEND Internal Medicine Hematology & Oncology
DX: Z51.12 Encounter for antineoplastic immunotherapy (principal); C44.509 Unspecified malignant neoplasm of skin of other part of trunk; D50.8 Other iron deficiency anemias; Z88.0 Allergy status to penicillin
CPT/HCPCS: 96413; J3490; Q0139

== ENCOUNTER 2022-06-11 10:03 | Outpatient (CLI) | payer BC ==
[2022-06-11] MEDS ORDERED: Magnevist 469MG/ML 20 ML VIAL ONE (10:15)
== END 2022-06-11 10:04 | disposition home or self-care (01) ==
LOC: MRI 10:03
PROVIDERS: ATTEND Surgery
DX: I62.9 Nontraumatic intracranial hemorrhage, unspecified (principal); I67.82 Cerebral ischemia
CPT/HCPCS: 70553; A9579

== ENCOUNTER 2022-06-11 11:21 | Emergency (ER) | payer BC ==
[2022-06-11] MEDS ORDERED: predniSONE 20 MG TAB ONE (12:42)
[2022-06-11] MEDS ORDERED: Acetaminophen 500 MG TAB ONE (12:42)
[2022-06-11] MEDS ORDERED: Albuterol Sulfate 2.5 mg/3 ml Neb ONE ×2 (13:47→13:53)
[2022-06-11 13:49] LABS: Hemoglobin 16.6 g/dL (12.0-16.0); Mean Corpuscular HGB CONC 32.7 g/dL (32.0-36.0); Mean Corpuscular Hemoglobin 32.5 pg (27.0-31.0); Mean Corpuscular Volume 99.5 fL (78.0-98.0); Mean Platelet Volume 9.2 fL (7.4-10.4); Platelet Count 160 thou/uL (130-400); RBC Distribution Width 12.4 % (11.5-14.5); Red Blood Cell (RBC) Count 5.11 mill/uL (4.20-5.40); White Blood Cell (WBC) Count 7.1 thou/uL (4.8-10.8)
[2022-06-11 14:12] LABS: ALT (SGPT) 25 U/L (8-55); AST (SGOT) 27 U/L (5-34); Albumin 3.9 g/dL (3.4-4.8); Alkaline Phosphatase 108 U/L (40-110); Anion Gap 15 mmol/L (10-20); BUN (Urea Nitrogen) 13 mg/dL (9.8-20.1); Bilirubin, Total 0.3 mg/dL (0.2-1.2); Calc. Creatinine Clearance 0 mL/min (70-130); Calcium 8.7 mg/dL (7.8-10.44); Carbon Dioxide 26 mmol/L (23-31); Chloride 104 mmol/L (98-107); Estimated GFR 95; Globulin 3.1 g/dL (2.4-3.5); Glucose 117 mg/dL (80-115); Sodium 142 mmol/L (136-145)
[2022-06-11 14:13] LABS: Potassium 2.9 mmol/L (3.5-5.1)
[2022-06-11 14:18] LABS: Band 1 % (5-11); Lymphocytes 14 % (21-51); MDiff Complete? YES; Macrocytosis SLIGHT = 6-15 cells (100X) (0-5/hpf); Monocytes 4 % (0-10); Neutrophil 73 % (42-75); Platelet Morphology Comment Appears Adequate; Polychromasia SLIGHT = 2-3 cells (100X) (0-2/hpf); Reactive Lymphocytes 6 % (0-10)
[2022-06-11] MEDS ORDERED: Metoclopramide HCl 10 MG/2 ML VIAL ONE (14:34)
[2022-06-11] MEDS ORDERED: diphenhydrAMINE 50 MG CAP ONE (14:34)
[2022-06-11] MEDS ORDERED: diphenhydrAMINE 50 MG/ML VIAL ONE (14:34)
[2022-06-11] MEDS ORDERED: Potassium Chloride 20 MEQ TAB ONE ×2 (14:44→15:07)
== END 2022-06-11 15:35 | disposition home or self-care (01) ==
LOC: ERS 11:21
DX: J44.1 Chronic obstructive pulmonary disease with (acute) exacerbation (principal); R51.9 Headache, unspecified; I10 Essential (primary) hypertension; Z86.73 Personal history of transient ischemic attack (TIA), and cerebral infarction without residual deficits; F17.210 Nicotine dependence, cigarettes, uncomplicated
CPT/HCPCS: 36415; 70450; 71045; 80053; 83880; 84484; 85025; 93005; 94640; 96361; 96374; 96375; J1200; J2765; J7512; J7611; J7620

== ENCOUNTER 2022-07-15 09:41 | Emergency (ER) | payer BC ==
[2022-07-15] MEDS ORDERED: HYDROcodone/Acetaminophen 5/325 mg Tablet ONE (11:32)
[2022-07-15] MEDS ORDERED: cloNIDine 0.1 MG TAB ONE (12:35)
== END 2022-07-15 13:13 | disposition home or self-care (01) ==
LOC: ERS 09:41
DX: M79.672 Pain in left foot (principal); I10 Essential (primary) hypertension; F17.210 Nicotine dependence, cigarettes, uncomplicated

== ENCOUNTER 2022-08-24 15:53 | Emergency (ER) | payer BC, OTHER ==
[~2022-08-24 15:53] MED LIST changes: -CEMIPLIMAB RWLC IVPB SCH; -Ferumoxytol (ERSD) 510 MG in Sodium Chloride 0.9% 150 ML IVPB SCH; +Iopamidol-370 76% 500 ML 1 ML ONE; -SODIUM CHLORIDE 0.9% IVPB SCH
[2022-08-24 16:30] LABS: #Eosinphils 0.1 thou/uL (0.0-0.7); #Lymphocytes 0.9 thou/uL (1.20-3.40); #Monocytes 1.3 thou/uL (0.11-0.59); %Basophils 0.1 % (0.0-1.0); %Eosinophils 1.2 % (0.0-10.0); %Lymphocytes 8.7 % (21.0-51.0); %Monocytes 12.6 % (0.0-10.0); %Neutrophils 77.5 % (42.0-75.0); Hemoglobin 13.8 g/dL (12.0-16.0); Mean Corpuscular HGB CONC 31.2 g/dL (32.0-36.0); Mean Corpuscular Hemoglobin 31.3 pg (27.0-31.0); Mean Platelet Volume 7.3 fL (7.4-10.4); Platelet Count 332 thou/uL (130-400); RBC Distribution Width 12.7 % (11.5-14.5); Red Blood Cell (RBC) Count 4.43 mill/uL (4.20-5.40); White Blood Cell (WBC) Count 10.3 thou/uL (4.8-10.8)
[2022-08-24 16:44] LABS: ALT (SGPT) 22 U/L (8-55); AST (SGOT) 24 U/L (5-34); Alkaline Phosphatase 130 U/L (40-110); Anion Gap 14 mmol/L (10-20); BUN (Urea Nitrogen) 8 mg/dL (9.8-20.1); Bilirubin, Total 0.6 mg/dL (0.2-1.2); Calc. Creatinine Clearance 0 mL/min (70-130); Calcium 8.8 mg/dL (7.8-10.44); Carbon Dioxide 28 mmol/L (23-31); Chloride 103 mmol/L (98-107); Estimated GFR 100; Glucose 97 mg/dL (80-115); Sodium 142 mmol/L (136-145)
[2022-08-24] MEDS ORDERED: Albuterol 200 PUFF (6.7GM INHALER) ONE (18:01)
[2022-08-24 18:49] LABS: SARS-CoV-2 NAA Rapid Test Not Detected (NotDetected)
[2022-08-24] MEDS ORDERED: Potassium Chloride 20 MEQ TAB ONE ×2 (19:29→19:30)
== END 2022-08-24 20:51 | disposition home or self-care (01) ==
LOC: ERS 15:53
DX: J44.1 Chronic obstructive pulmonary disease with (acute) exacerbation (principal); F17.210 Nicotine dependence, cigarettes, uncomplicated; I10 Essential (primary) hypertension; Z20.822 Contact with and (suspected) exposure to COVID-19; Z79.899 Other long term (current) drug therapy
CPT/HCPCS: 36415; 71045; 71275; 80053; 83880; 84484; 85025; 93005; Q9967

== ENCOUNTER 2022-12-18 18:48 | Inpatient (IN) | payer BC ==
[2022-12-18 19:56] LABS: #Lymphocytes 0.5 thou/uL (1.20-3.40); #Monocytes 1.6 thou/uL (0.11-0.59); #Neutrophils 17.1 thou/uL (1.40-6.50); %Basophils 0.2 % (0.0-1.0); %Eosinophils 0.1 % (0.0-10.0); %Lymphocytes 2.6 % (21.0-51.0); %Monocytes 8.3 % (0.0-10.0); %Neutrophils 88.8 % (42.0-75.0); Hemoglobin 14.8 g/dL (12.0-16.0); Mean Corpuscular HGB CONC 32.7 g/dL (32.0-36.0); Mean Corpuscular Hemoglobin 31.8 pg (27.0-31.0); Mean Corpuscular Volume 97.2 fl (78.0-98.0); Platelet Count 206 10x3/uL (130-400); RBC Distribution Width 13.7 % (11.5-14.5); Red Blood Cell (RBC) Count 4.66 mill/uL (4.20-5.40); White Blood Cell (WBC) Count 19.3 10x3/uL (4.8-10.8)
[2022-12-18] MEDS ORDERED: Albuterol 2.5 MG/0.5 ML NEB ONE (20:14)
[2022-12-18] MEDS ORDERED: Ipratropium/Albuterol 3 ML NEB ONE (20:14)
[2022-12-18 20:17] LABS: ALT (SGPT) 22 U/L (8-55); AST (SGOT) 23 U/L (5-34); Alkaline Phosphatase 111 U/L (40-110); Anion Gap 15 mmol/L (10-20); BUN (Urea Nitrogen) 16 mg/dL (9.8-20.1); Bilirubin, Total 0.8 mg/dL (0.2-1.2); Calc. Creatinine Clearance 0 mL/min (70-130); Calcium 9.1 mg/dL (7.8-10.44); Carbon Dioxide 23 mmol/L (23-31); Chloride 101 mmol/L (98-107); Estimated GFR 81; Globulin 3.3 g/dL (2.4-3.5); Glucose 108 mg/dL (80-115); Magnesium 1.6 mg/dL (1.6-2.6); Protein, Total 7.3 g/dL (5.8-8.1); Sodium 136 mmol/L (136-145)
[2022-12-18] MEDS ORDERED: Potassium Chloride 20 MEQ TAB ONE (20:27)
[2022-12-18] MEDS ORDERED: Dexamethasone 10 MG/ML VIAL ONE (20:27)
[2022-12-18] MEDS ORDERED: Magnesium 2 GM/50 ML BAG (IN WATER) ONE (20:28)
[2022-12-18] MEDS ORDERED: Ipratropium/Albuterol 3 ML NEB NEB PRN (20:42)
[2022-12-18] MEDS ORDERED: Ondansetron PF 4 MG/2 ML Vial IVP PRN (20:45)
[2022-12-18] MEDS ORDERED: Ondansetron ODT 4 MG TAB SL PRN (20:45)
[2022-12-18] MEDS ORDERED: Ipratropium/Albuterol 3 ML NEB NEB SCH (21:00)
[2022-12-18] MEDS ORDERED: hydrALAZINE 25 MG TAB PO PRN (22:12)
[2022-12-18] MEDS ORDERED: Senokot S 8.6-50 MG TAB PO PRN (22:13)
[2022-12-18] MEDS ORDERED: Calcium Carbonate 500 MG ChewTAB PO PRN (22:13)
[2022-12-18] MEDS ORDERED: Acetaminophen 325 MG TAB PO PRN (22:13)
[2022-12-18] MEDS ORDERED: Guaifenesin DM 100-10/5 ML UDCUP PO PRN (22:13)
[2022-12-18] MEDS ORDERED: methylPREDNISolone Sod Succ 40 MG VIAL IVP SCH (22:15)
[2022-12-18] MEDS ORDERED: Morphine 2 MG/ML VIAL SLOW IVP SCH (23:15)
[2022-12-18] MEDS: Ipratropium/Albuterol 3 ML NEB NEB SCH (23:46)
[2022-12-19] MEDS: Nicotine 14 MG PATCH TD SCH ×2 (00:07→20:43)
[2022-12-19] MEDS: Sodium Chloride 0.9% 1,000 ML IV SCH ×2 (00:07→08:37)
[2022-12-19 06:08] VITALS: BMI 19.6
[2022-12-19 06:27] LABS: Hemoglobin 13.1 g/dL (12.0-16.0); Mean Corpuscular HGB CONC 29.8 g/dL (32.0-36.0); Mean Corpuscular Hemoglobin 30.4 pg (27.0-31.0); Platelet Count 205 10x3/uL (130-400); RBC Distribution Width 13.9 % (11.5-14.5); Red Blood Cell (RBC) Count 4.31 mill/uL (4.20-5.40); White Blood Cell (WBC) Count 14.4 10x3/uL (4.8-10.8)
[2022-12-19] MEDS: Ipratropium/Albuterol 3 ML NEB NEB SCH ×3 (06:57→19:01)
[2022-12-19 07:03] LABS: #Basophils 0.1 thou/uL (0.0-0.2); #Eosinphils 0.1 thou/uL (0.0-0.7); #Lymphocytes 0.3 thou/uL (1.20-3.40); #Monocytes 0.2 thou/uL (0.11-0.59); #Neutrophils 13.8 thou/uL (1.40-6.50); %Basophils 0.4 % (0.0-1.0); %Eosinophils 0.4 % (0.0-10.0); %Lymphocytes 2.1 % (21.0-51.0); %Monocytes 1.3 % (0.0-10.0); %Neutrophils 95.8 % (42.0-75.0); MDiff Complete? YES; Target Cells SLIGHT = 2-5 cells (100X) (0-1/hpf)
[2022-12-19 07:42] LABS: Anion Gap 14 mmol/L (10-20); BUN (Urea Nitrogen) 13 mg/dL (9.8-20.1); Calc. Creatinine Clearance 70 mL/min (70-130); Calcium 8.5 mg/dL (7.8-10.44); Carbon Dioxide 20 mmol/L (23-31); Chloride 105 mmol/L (98-107); Estimated GFR 100; Glucose 178 mg/dL (80-115); Potassium 3.6 mmol/L (3.5-5.1); Sodium 135 mmol/L (136-145)
[2022-12-19] MEDS: Famotidine 20 MG TAB PO SCH ×2 (08:40→20:43)
[2022-12-19] MEDS: Lisinopril 5 MG TAB PO SCH (08:40)
[2022-12-19] MEDS: Doxycycline 100 MG CAP PO SCH ×2 (08:41→20:43)
[2022-12-19] MEDS: cefTRIAXone\\ROCEPHIN 1 GM in Sodium Chloride 0.9% 100 ML IVPB SCH (08:41)
[2022-12-19] MEDS: methylPREDNISolone Sod Succ 40 MG VIAL IVP SCH ×2 (08:41→20:43)
[2022-12-19] MEDS: levETIRAcetam 500 MG TAB PO SCH ×2 (08:41→20:43)
[2022-12-19] MEDS ORDERED: Vancomycin 1 GM in Premix Bag 1 BAG IVPB SCH (16:45)
[2022-12-20] MEDS: Ipratropium/Albuterol 3 ML NEB NEB SCH ×5 (00:44→23:35)
[2022-12-20] MEDS ORDERED: Vancomycin HCl 750 MG in Sodium Chloride 0.9% 250 ML 250 ML IVPB SCH (05:00)
[2022-12-20 07:02] LABS: #Lymphocytes 0.6 thou/uL (1.20-3.40); #Monocytes 0.7 thou/uL (0.11-0.59); #Neutrophils 9.9 thou/uL (1.40-6.50); %Basophils 0.2 % (0.0-1.0); %Eosinophils 0.1 % (0.0-10.0); %Lymphocytes 5.4 % (21.0-51.0); %Monocytes 6.1 % (0.0-10.0); %Neutrophils 88.2 % (42.0-75.0); Hemoglobin 12.1 g/dL (12.0-16.0); Mean Corpuscular HGB CONC 31.5 g/dL (32.0-36.0); Mean Corpuscular Volume 98.7 fl (78.0-98.0); Mean Platelet Volume 8.5 fL (7.4-10.4); Platelet Count 202 10x3/uL (130-400); RBC Distribution Width 13.7 % (11.5-14.5); Red Blood Cell (RBC) Count 3.91 mill/uL (4.20-5.40); White Blood Cell (WBC) Count 11.2 10x3/uL (4.8-10.8)
[2022-12-20 07:20] LABS: Anion Gap 13 mmol/L (10-20); BUN (Urea Nitrogen) 21 mg/dL (9.8-20.1); Calc. Creatinine Clearance 70 mL/min (70-130); Calcium 8.9 mg/dL (7.8-10.44); Carbon Dioxide 20 mmol/L (23-31); Chloride 107 mmol/L (98-107); Estimated GFR 100; Glucose 156 mg/dL (80-115); Potassium 4.2 mmol/L (3.5-5.1); Sodium 136 mmol/L (136-145)
[2022-12-20] MEDS: Famotidine 20 MG TAB PO SCH ×2 (08:35→21:22)
[2022-12-20] MEDS: levETIRAcetam 500 MG TAB PO SCH ×2 (08:35→21:22)
[2022-12-20] MEDS: cefTRIAXone\\ROCEPHIN 1 GM in Sodium Chloride 0.9% 100 ML IVPB SCH (08:35)
[2022-12-20] MEDS: Lisinopril 5 MG TAB PO SCH (08:35)
[2022-12-20] MEDS: methylPREDNISolone Sod Succ 40 MG VIAL IVP SCH (08:35)
[2022-12-20] MEDS: Doxycycline 100 MG CAP PO SCH ×2 (08:36→21:22)
[2022-12-20] MEDS ORDERED: Nicotine 14 MG PATCH TD PRN (14:47)
[2022-12-20] MEDS ORDERED: Electrolyte Replacement Protocol 1 EACH FS SCH (15:00)
[2022-12-20] MEDS: predniSONE 20 MG TAB PO SCH ×2 (18:00→18:02)
[2022-12-20] MEDS: guaiFENesin ER 600 MG TAB PO SCH (21:22)
[2022-12-21] MEDS: Ipratropium/Albuterol 3 ML NEB NEB SCH ×2 (07:01→10:51)
[2022-12-21 08:06] VITALS: BP 159/86; TEMP 97.4
[2022-12-21 08:20] LABS: #Lymphocytes 0.6 thou/uL (1.20-3.40); #Monocytes 0.6 thou/uL (0.11-0.59); #Neutrophils 8.2 thou/uL (1.40-6.50); %Basophils 0.2 % (0.0-1.0); %Eosinophils 0.1 % (0.0-10.0); %Lymphocytes 6.7 % (21.0-51.0); %Monocytes 6.1 % (0.0-10.0); %Neutrophils 86.9 % (42.0-75.0); Mean Corpuscular HGB CONC 31.4 g/dL (32.0-36.0); Mean Corpuscular Hemoglobin 31.1 pg (27.0-31.0); Mean Corpuscular Volume 99.1 fl (78.0-98.0); Mean Platelet Volume 8.2 fL (7.4-10.4); Platelet Count 231 10x3/uL (130-400); RBC Distribution Width 13.7 % (11.5-14.5); Red Blood Cell (RBC) Count 4.18 mill/uL (4.20-5.40); White Blood Cell (WBC) Count 9.5 10x3/uL (4.8-10.8)
[2022-12-21 08:45] LABS: Anion Gap 13 mmol/L (10-20); BUN (Urea Nitrogen) 26 mg/dL (9.8-20.1); Calc. Creatinine Clearance 72 mL/min (70-130); Calcium 8.9 mg/dL (7.8-10.44); Carbon Dioxide 19 mmol/L (23-31); Chloride 108 mmol/L (98-107); Estimated GFR 101; Glucose 124 mg/dL (80-115); Magnesium 1.9 mg/dL (1.6-2.6); Potassium 4.2 mmol/L (3.5-5.1); Sodium 136 mmol/L (136-145)
[2022-12-21] MEDS: Famotidine 20 MG TAB PO SCH (09:19)
[2022-12-21] MEDS: guaiFENesin ER 600 MG TAB PO SCH (09:19)
[2022-12-21] MEDS: levETIRAcetam 500 MG TAB PO SCH (09:19)
[2022-12-21] MEDS: Lisinopril 5 MG TAB PO SCH (09:20)
[2022-12-21] MEDS: predniSONE 20 MG TAB PO SCH (09:20)
[2022-12-21] MEDS: cefTRIAXone\\ROCEPHIN 1 GM in Sodium Chloride 0.9% 100 ML IVPB SCH ×2 (11:15→11:19)
[2022-12-21] MEDS: Doxycycline 100 MG CAP PO SCH (12:03)
[2022-12-21] MEDS ORDERED: Magnesium 2 GM/50 ML(in water) 2 GM in Premix Bag 1 BAG IVPB SCH (12:45)
[2022-12-21] MEDS ORDERED: Cephalexin 250 MG CAP PO SCH (13:00)
[2022-12-21] MEDS ORDERED: Magnesium Oxide 400 MG TAB PO SCH (13:45)
[2022-12-25] MEDS ORDERED: cloNIDine 0.1mg/24 Hour PATCH TD SCH (09:00)
== END 2022-12-21 15:35 | disposition home or self-care (01) | DRG 872 ==
LOC: ERS 18:48 → T4-A 20:29
PROVIDERS: ADMIT Internal Medicine; ATTEND Internal Medicine
DX: A41.1 Sepsis due to other specified staphylococcus (principal); J44.1 Chronic obstructive pulmonary disease with (acute) exacerbation; E87.1 Hypo-osmolality and hyponatremia; E87.6 Hypokalemia; B18.2 Chronic viral hepatitis C; I10 Essential (primary) hypertension; F17.210 Nicotine dependence, cigarettes, uncomplicated; K12.39 Other oral mucositis (ulcerative); Z88.0 Allergy status to penicillin; Z79.899 Other long term (current) drug therapy; Z86.73 Personal history of transient ischemic attack (TIA), and cerebral infarction without residual deficits; Z90.710 Acquired absence of both cervix and uterus; Z85.828 Personal history of other malignant neoplasm of skin
CPT/HCPCS: 36415; 70450; 70486; 71045; 80048; 80053; 83605; 83735; 83880; 84484; 85025; 87040; 87077; 87186; 93005; 93306; 94640; 96361; 96365; 96375; J0696; J1100; J1650; J1956; J2272; J2920; J3370; J3370-JW; J3475; J3490; J7050; J7512; J7611; J7620; U0003; U0005

== ENCOUNTER 2023-08-21 08:53 | Emergency (ER) | payer BC, SELFPAY | END 2023-08-21 10:51 | disposition home or self-care (01) | LOC: ERS 08:53 | DX: R07.81 Pleurodynia (principal); I10 Essential (primary) hypertension; F17.210 Nicotine dependence, cigarettes, uncomplicated; Z79.899 Other long term (current) drug therapy | CPT/HCPCS: 71046 ==

== ENCOUNTER 2023-08-27 21:06 | Inpatient (IN) | payer SELFPAY ==
[~2023-08-27 21:06] MED LIST changes: -Iopamidol-370 76% 500 ML 1 ML ONE; +Iopamidol-370 76% 500 ML MDV (1 ML CHARGE) ONE
[2023-08-27] MEDS ORDERED: Dexamethasone 10 MG/ML VIAL ONE (21:23)
[2023-08-27] MEDS ORDERED: Ipratropium/Albuterol 3 ML NEB ONE (21:23)
[2023-08-27] MEDS ORDERED: Magnesium 2 GM/50 ML BAG (IN WATER) ONE (21:24)
[2023-08-27] MEDS ORDERED: Ketamine In 0.9 % NaCl 50 MG/5 ML SYRINGE ONE (21:42)
[2023-08-27 21:52] LABS: #Monocytes 1.5 thou/uL (0.11-0.59); #Neutrophils 7.3 thou/uL (1.40-6.50); %Basophils 0.3 % (0.0-1.0); %Eosinophils 0.3 % (0.0-10.0); %Lymphocytes 7.2 % (21.0-51.0); %Monocytes 15.5 % (0.0-10.0); %Neutrophils 76.4 % (42.0-75.0); Mean Corpuscular HGB CONC 31.1 g/dL (32.0-36.0); Mean Corpuscular Hemoglobin 29.8 pg (27.0-31.0); Mean Corpuscular Volume 95.7 fl (78.0-98.0); Mean Platelet Volume 9.4 fL (7.4-10.4); Platelet Count 332 10x3/uL (130-400); RBC Distribution Width 16.3 % (11.5-14.5); White Blood Cell (WBC) Count 9.6 10x3/uL (4.8-10.8)
[2023-08-27] MEDS ORDERED: LORazepam 2 MG/ML SYR.(CARPUJECT) ONE (21:57)
[2023-08-27] MEDS ORDERED: Morphine 4 MG/ML VIAL ONE (22:00)
[2023-08-27] MEDS ORDERED: Labetalol HCl 100 MG/20 ML VIAL ONE (22:00)
[2023-08-27 22:18] LABS: ALT (SGPT) 34 U/L (8-55); AST (SGOT) 43 U/L (5-34); Albumin 4.7 g/dL (3.4-4.8); Alkaline Phosphatase 142 U/L (40-110); Anion Gap 14 mmol/L (10-20); BUN (Urea Nitrogen) 8 mg/dL (9.8-20.1); Bilirubin, Total 0.3 mg/dL (0.2-1.2); Calc. Creatinine Clearance 0 mL/min (70-130); Calcium 9.3 mg/dL (7.8-10.44); Carbon Dioxide 30 mmol/L (23-31); Chloride 99 mmol/L (98-107); Estimated GFR 99; Globulin 3.7 g/dL (2.4-3.5); Glucose 89 mg/dL (80-115); Potassium 3.6 mmol/L (3.5-5.1); Protein, Total 8.4 g/dL (5.8-8.1); Sodium 139 mmol/L (136-145)
[2023-08-27] MEDS ORDERED: Aspirin Chewable 81 MG TAB ONE (22:32)
[2023-08-27] MEDS ORDERED: Nitroglycerin 0.4 MG TAB 1 EACH ONE (22:32)
[2023-08-27] MEDS ORDERED: Nitroglycerin 50 MG/250 ML BOT 250 ML ONE (22:46)
[2023-08-28] MEDS ORDERED: Nitroglycerin 50 MG/250 ML BOT 250 ML IVPB SCH (00:15)
[2023-08-28] MEDS: Ipratropium/Albuterol 3 ML NEB NEB SCH ×4 (00:59→19:09)
[2023-08-28] MEDS ORDERED: diphenhydrAMINE 12.5 MG/5 ML UDCUP PO PRN (01:33)
[2023-08-28] MEDS ORDERED: Electrolyte Replacement Protocol 1 EACH FS SCH (01:45)
[2023-08-28 02:11] VITALS: BMI 21.5
[2023-08-28] MEDS: Ketorolac Tromethamine 30 MG/ML VIAL IVP SCH ×2 (04:14→04:22)
[2023-08-28] MEDS: Nicotine 14 MG PATCH TD PRN (04:18)
[2023-08-28 04:33] LABS: #Monocytes 0.2 thou/uL (0.11-0.59); #Neutrophils 6.9 thou/uL (1.40-6.50); %Basophils 0.1 % (0.0-1.0); %Lymphocytes 2.6 % (21.0-51.0); %Monocytes 2.2 % (0.0-10.0); %Neutrophils 94.7 % (42.0-75.0); Hematocrit 37.4 % (36.0-47.0); Hemoglobin 11.4 g/dL (12.0-16.0); Mean Corpuscular HGB CONC 30.5 g/dL (32.0-36.0); Mean Corpuscular Hemoglobin 29.2 pg (27.0-31.0); Mean Corpuscular Volume 95.9 fl (78.0-98.0); Mean Platelet Volume 9.7 fL (7.4-10.4); Platelet Count 252 10x3/uL (130-400); RBC Distribution Width 16.2 % (11.5-14.5); White Blood Cell (WBC) Count 7.3 10x3/uL (4.8-10.8)
[2023-08-28] MEDS: Acetaminophen 325 MG TAB PO PRN ×4 (04:35→23:46)
[2023-08-28] MEDS: ALPRAZolam 0.25 MG TAB PO PRN ×2 (04:35→20:35)
[2023-08-28 04:55] LABS: Lactic Acid 0.6 mmol/L (0.5-2.2)
[2023-08-28 05:04] LABS: Anion Gap 13 mmol/L (10-20); BUN (Urea Nitrogen) 8 mg/dL (9.8-20.1); Calc. Creatinine Clearance 83 mL/min (70-130); Carbon Dioxide 25 mmol/L (23-31); Chloride 104 mmol/L (98-107); Estimated GFR 102; Glucose 104 mg/dL (80-115); Magnesium 2.1 mg/dL (1.6-2.6); Potassium 3.9 mmol/L (3.5-5.1); Sodium 138 mmol/L (136-145)
[2023-08-28 05:07] LABS: Critical Call Chem Troponin I RESULT DECREASING; Troponin I 0.262 ng/mL (< 0.028)
[2023-08-28 05:15] LABS: Amphetamine Not Detected (NotDetected); Barbiturates Screen Not Detected (NotDetected); Benzodiazepine Screen Detected (NotDetected); Cocaine Metabolite Screen Not Detected (NotDetected); Methadone Not Detected (NotDetected); Methamphetamine Not Detected (NotDetected); Opiate Screen Detected (NotDetected); Oxycodone Screen Not Detected (NotDetected); Phencyclidine (PCP) Not Detected (NotDetected); THC/Cannabinoid Screen Detected (NotDetected); Tricyclic Screen Not Detected (NotDetected)
[2023-08-28] MEDS ORDERED: Labetalol HCl 100 MG/20 ML VIAL SLOW IVP PRN (05:17)
[2023-08-28] MEDS: Ibuprofen 200 MG TAB PO PRN (05:33)
[2023-08-28 06:11] LABS: SARS-CoV-2 NAA Rapid Test Not Detected (NotDetected)
[2023-08-28 07:10] LABS: Critical Call Chem Troponin I RESULT DECREASING; Troponin I 0.223 ng/mL (< 0.028)
[2023-08-28] MEDS ORDERED: FLU VACC QS2023-24(6MOS UP)/PF 60 MCG/0.5 ML SYRINGE IM ONE (09:00)
[2023-08-28] MEDS: methylPREDNISolone Sod Succ 40 MG VIAL IVP SCH ×2 (09:03→20:34)
[2023-08-28] MEDS: hydrALAZINE 25 MG TAB PO SCH ×3 (09:03→20:32)
[2023-08-28] MEDS: Famotidine 20 MG TAB PO SCH ×2 (09:04→20:33)
[2023-08-28] MEDS ORDERED: Oseltamivir 75 MG CAP PO SCH (13:15)
[2023-08-28] MEDS ORDERED: Lidocaine 4% Patch TD SCH (13:15)
[2023-08-28] MEDS: HYDROcodone/Acetaminophen 5/325 mg Tablet PO PRN (20:31)
[2023-08-28] MEDS: dilTIAZem 30 MG TAB PO SCH (20:32)
[2023-08-28] MEDS: cloNIDine 0.1 MG TAB PO SCH (20:33)
[2023-08-28] MEDS: Oseltamivir 75 MG CAP PO SCH (20:34)
[2023-08-29] MEDS: Ipratropium/Albuterol 3 ML NEB NEB SCH ×4 (00:42→19:09)
[2023-08-29] MEDS ORDERED: Transdermal Patch Removal TOP SCH (01:00)
[2023-08-29] MEDS: Albuterol 200 PUFF (6.7GM INHALER) INH PRN ×2 (04:10→11:29)
[2023-08-29 04:40] LABS: Cardiac Risk 2.5 (Less than 4.5)
[2023-08-29] MEDS: cloNIDine 0.1 MG TAB PO SCH ×3 (07:55→21:56)
[2023-08-29] MEDS: Lidocaine 4% Patch TD SCH (07:55)
[2023-08-29] MEDS: Aspirin 81 mg Enteric Coated Tablet PO SCH (07:55)
[2023-08-29] MEDS: hydrALAZINE 25 MG TAB PO SCH ×3 (07:55→21:57)
[2023-08-29] MEDS: Oseltamivir 75 MG CAP PO SCH ×2 (07:55→21:58)
[2023-08-29] MEDS: dilTIAZem 30 MG TAB PO SCH ×2 (07:55→21:58)
[2023-08-29] MEDS: HYDROcodone/Acetaminophen 5/325 mg Tablet PO PRN ×4 (07:56→22:05)
[2023-08-29] MEDS: Famotidine 20 MG TAB PO SCH ×2 (07:56→21:58)
[2023-08-29] MEDS: Ibuprofen 200 MG TAB PO PRN (07:57)
[2023-08-29] MEDS: methylPREDNISolone Sod Succ 40 MG VIAL IVP SCH ×2 (07:57→21:59)
[2023-08-29] MEDS ORDERED: Furosemide 40 MG/4 ML VIAL SLOW IVP SCH (10:00)
[2023-08-29] MEDS: ALPRAZolam 0.25 MG TAB PO PRN ×2 (11:08→21:57)
[2023-08-29] MEDS: Transdermal Patch Removal TOP SCH (22:00)
[2023-08-30] MEDS: Ipratropium/Albuterol 3 ML NEB NEB SCH ×4 (00:59→18:55)
[2023-08-30] MEDS: Ondansetron ODT 4 MG TAB PO PRN (04:07)
[2023-08-30] MEDS: HYDROcodone/Acetaminophen 5/325 mg Tablet PO PRN ×4 (04:08→20:27)
[2023-08-30 04:52] LABS: #Monocytes 0.4 thou/uL (0.11-0.59); #Neutrophils 5.2 thou/uL (1.40-6.50); %Basophils 0.2 % (0.0-1.0); %Lymphocytes 5.9 % (21.0-51.0); %Monocytes 5.9 % (0.0-10.0); %Neutrophils 87.3 % (42.0-75.0); Hematocrit 43.8 % (36.0-47.0); Hemoglobin 13.1 g/dL (12.0-16.0); Mean Corpuscular HGB CONC 29.9 g/dL (32.0-36.0); Mean Corpuscular Hemoglobin 29.8 pg (27.0-31.0); Mean Corpuscular Volume 99.8 fl (78.0-98.0); Mean Platelet Volume 9.6 fL (7.4-10.4); Platelet Count 278 10x3/uL (130-400); RBC Distribution Width 16.3 % (11.5-14.5); Red Blood Cell (RBC) Count 4.39 mill/uL (4.20-5.40); White Blood Cell (WBC) Count 5.9 10x3/uL (4.8-10.8)
[2023-08-30 05:21] LABS: Anion Gap 14 mmol/L (10-20); BUN (Urea Nitrogen) 20 mg/dL (9.8-20.1); Calc. Creatinine Clearance 68 mL/min (70-130); Calcium 8.5 mg/dL (7.8-10.44); Carbon Dioxide 29 mmol/L (23-31); Chloride 97 mmol/L (98-107); Estimated GFR 94; Glucose 161 mg/dL (80-115); Potassium 4.9 mmol/L (3.5-5.1); Sodium 135 mmol/L (136-145)
[2023-08-30] MEDS: Aspirin 81 mg Enteric Coated Tablet PO SCH (08:20)
[2023-08-30] MEDS: hydrALAZINE 25 MG TAB PO SCH ×3 (08:20→20:27)
[2023-08-30] MEDS: dilTIAZem 30 MG TAB PO SCH ×2 (08:20→21:23)
[2023-08-30] MEDS: Oseltamivir 75 MG CAP PO SCH ×2 (08:20→21:25)
[2023-08-30] MEDS: cloNIDine 0.1 MG TAB PO SCH ×3 (08:20→20:29)
[2023-08-30] MEDS: Lidocaine 4% Patch TD SCH (08:20)
[2023-08-30] MEDS: Famotidine 20 MG TAB PO SCH ×2 (08:21→20:27)
[2023-08-30] MEDS: ALPRAZolam 0.25 MG TAB PO PRN ×2 (08:21→21:25)
[2023-08-30] MEDS: methylPREDNISolone Sod Succ 40 MG VIAL IVP SCH ×2 (08:22→21:24)
[2023-08-30] MEDS: Transdermal Patch Removal TOP SCH (21:25)
[2023-08-31] MEDS: Ipratropium/Albuterol 3 ML NEB NEB SCH ×5 (00:47→23:39)
[2023-08-31] MEDS: HYDROcodone/Acetaminophen 5/325 mg Tablet PO PRN ×3 (02:39→18:40)
[2023-08-31] MEDS: Aspirin 81 mg Enteric Coated Tablet PO SCH (07:44)
[2023-08-31] MEDS: hydrALAZINE 25 MG TAB PO SCH ×3 (07:44→20:00)
[2023-08-31] MEDS: cloNIDine 0.1 MG TAB PO SCH ×3 (07:44→20:00)
[2023-08-31] MEDS: dilTIAZem 30 MG TAB PO SCH ×2 (07:45→20:00)
[2023-08-31] MEDS: Famotidine 20 MG TAB PO SCH ×2 (07:45→20:00)
[2023-08-31] MEDS: Oseltamivir 75 MG CAP PO SCH ×2 (07:45→20:00)
[2023-08-31] MEDS: methylPREDNISolone Sod Succ 40 MG VIAL IVP SCH ×2 (07:45→19:59)
[2023-08-31] MEDS: Lidocaine 4% Patch TD SCH (07:46)
[2023-08-31] MEDS: Losartan 25 MG TAB PO SCH (07:57)
[2023-08-31] MEDS ORDERED: dilTIAZem 125 MG in Sodium Chloride 0.9% 100 ML IVPB SCH (08:30)
[2023-08-31] MEDS ORDERED: Furosemide 40 MG/4 ML VIAL SLOW IVP SCH (08:30)
[2023-08-31] MEDS ORDERED: Magnesium 2 GM/50 ML(in water) 2 GM in Premix 1 BAG IVPB SCH (08:30)
[2023-08-31] MEDS: Morphine 2 MG/ML VIAL SLOW IVP PRN ×3 (09:17→20:00)
[2023-08-31] MEDS: ALPRAZolam 0.25 MG TAB PO PRN ×2 (10:39→20:00)
[2023-08-31] MEDS: hydrALAZINE 20 MG/ML VIAL SLOW IVP PRN ×2 (10:42→12:04)
[2023-08-31] MEDS ORDERED: Budesonide 0.5 MG/2 ML NEB NEB SCH (12:00)
[2023-08-31] MEDS ORDERED: LevoFLOXacin 750 MG TAB PO SCH (12:30)
[2023-08-31] MEDS: tiZANidine HCl 4 MG TAB PO PRN (14:13)
[2023-08-31] MEDS ORDERED: Mometasone 200 MCG/Formoterol 5 MCG 120 PUFF INHALER INH SCH (18:30)
[2023-08-31] MEDS: Budesonide 0.5 MG/2 ML NEB NEB SCH (18:41)
[2023-08-31] MEDS: Transdermal Patch Removal TOP SCH (20:01)
[2023-09-01] MEDS: HYDROcodone/Acetaminophen 5/325 mg Tablet PO PRN ×3 (00:02→21:59)
[2023-09-01] MEDS: hydrALAZINE 20 MG/ML VIAL SLOW IVP PRN (00:03)
[2023-09-01] MEDS: Morphine 2 MG/ML VIAL SLOW IVP PRN (03:57)
[2023-09-01] MEDS: LevoFLOXacin 750 MG TAB PO SCH (05:30)
[2023-09-01] MEDS: Ipratropium/Albuterol 3 ML NEB NEB SCH ×3 (07:20→20:41)
[2023-09-01] MEDS: Budesonide 0.5 MG/2 ML NEB NEB SCH ×2 (07:21→20:42)
[2023-09-01 07:23] LABS: Hematocrit 43.3 % (36.0-47.0); Hemoglobin 13.3 g/dL (12.0-16.0); Mean Corpuscular HGB CONC 30.7 g/dL (32.0-36.0); Mean Corpuscular Hemoglobin 29.9 pg (27.0-31.0); Mean Corpuscular Volume 97.3 fl (78.0-98.0); Mean Platelet Volume 9.5 fL (7.4-10.4); Platelet Count 228 10x3/uL (130-400); RBC Distribution Width 15.7 % (11.5-14.5); Red Blood Cell (RBC) Count 4.45 mill/uL (4.20-5.40); White Blood Cell (WBC) Count 14.5 10x3/uL (4.8-10.8)
[2023-09-01 07:46] LABS: Anion Gap 13 mmol/L (10-20); BUN (Urea Nitrogen) 22 mg/dL (9.8-20.1); Calc. Creatinine Clearance 75 mL/min (70-130); Calcium 9.1 mg/dL (7.8-10.44); Carbon Dioxide 35 mmol/L (23-31); Chloride 96 mmol/L (98-107); Estimated GFR 99; Glucose 141 mg/dL (80-115); Magnesium 1.9 mg/dL (1.6-2.6); Potassium 4.2 mmol/L (3.5-5.1); Sodium 140 mmol/L (136-145)
[2023-09-01 08:05] LABS: Delete Auto Diff?? YES; Manual Diff?? YES
[2023-09-01] MEDS: cloNIDine 0.1 MG TAB PO SCH ×3 (08:09→21:59)
[2023-09-01] MEDS: methylPREDNISolone Sod Succ 40 MG VIAL IVP SCH ×2 (08:09→22:08)
[2023-09-01] MEDS: Famotidine 20 MG TAB PO SCH ×2 (08:10→22:00)
[2023-09-01] MEDS: Aspirin 81 mg Enteric Coated Tablet PO SCH (08:10)
[2023-09-01] MEDS: Losartan 25 MG TAB PO SCH ×2 (08:10→22:00)
[2023-09-01] MEDS: dilTIAZem 30 MG TAB PO SCH ×2 (08:10→21:57)
[2023-09-01 08:11] LABS: #Monocytes 1.1 thou/uL (0.11-0.59); #Neutrophils 13.1 thou/uL (1.40-6.50); %Basophils 0.1 % (0.0-1.0); %Lymphocytes 2.8 % (21.0-51.0); %Monocytes 7.2 % (0.0-10.0); %Neutrophils 89.4 % (42.0-75.0)
[2023-09-01] MEDS: hydrALAZINE 25 MG TAB PO SCH ×3 (08:11→21:58)
[2023-09-01] MEDS: Lidocaine 4% Patch TD SCH (08:11)
[2023-09-01] MEDS: Oseltamivir 75 MG CAP PO SCH ×2 (08:11→21:59)
[2023-09-01] MEDS ORDERED: Magnesium 2 GM/50 ML(in water) 2 GM in Premix 1 BAG IVPB SCH (08:30)
[2023-09-01 08:56] LABS: Band 5 % (5-11); CellaVision Operator ID LAB.GE; Eosinophils 7 % (0-10); Lymphocytes 2 % (21-51); Neutrophil 85 % (42-75); Platelet Adequacy Comment Platelets Normal; Polychromasia SLIGHT = 2-3 cells HPF (0-2); Reactive Lymphocytes 2 % (0-10); Total Cell Count 104
[2023-09-01] MEDS ORDERED: Furosemide 40 MG/4 ML VIAL SLOW IVP SCH (09:00)
[2023-09-01] MEDS: Transdermal Patch Removal TOP SCH (21:00)
[2023-09-01] MEDS: ALPRAZolam 0.25 MG TAB PO PRN (21:58)
[2023-09-01] MEDS: Ondansetron ODT 4 MG TAB PO PRN (21:58)
[2023-09-01] MEDS: tiZANidine HCl 4 MG TAB PO PRN (21:59)
[2023-09-02] MEDS: LevoFLOXacin 750 MG TAB PO SCH (04:24)
[2023-09-02] MEDS: HYDROcodone/Acetaminophen 5/325 mg Tablet PO PRN (04:24)
[2023-09-02] MEDS: Nicotine 14 MG PATCH TD PRN (04:25)
[2023-09-02] MEDS: Ipratropium/Albuterol 3 ML NEB NEB SCH ×5 (04:34→23:11)
[2023-09-02] MEDS: Budesonide 0.5 MG/2 ML NEB NEB SCH ×2 (07:13→18:16)
[2023-09-02] MEDS: Aspirin 81 mg Enteric Coated Tablet PO SCH (08:58)
[2023-09-02] MEDS: Famotidine 20 MG TAB PO SCH ×2 (08:59→20:22)
[2023-09-02] MEDS: cloNIDine 0.1 MG TAB PO SCH ×3 (08:59→20:22)
[2023-09-02] MEDS: dilTIAZem 30 MG TAB PO SCH ×2 (08:59→20:22)
[2023-09-02] MEDS: hydrALAZINE 25 MG TAB PO SCH ×3 (08:59→20:22)
[2023-09-02] MEDS: Lidocaine 4% Patch TD SCH (09:00)
[2023-09-02] MEDS: Oseltamivir 75 MG CAP PO SCH (09:00)
[2023-09-02] MEDS: methylPREDNISolone Sod Succ 40 MG VIAL IVP SCH ×2 (09:00→20:24)
[2023-09-02] MEDS: Losartan 25 MG TAB PO SCH ×2 (09:00→20:23)
[2023-09-02 09:32] LABS: Actual Bicarbonate (HCO3v) 33.2 mEq/L (22-28); Calcium, Ionized (venous) 1.03 mmol/L (1.16-1.32); Chloride (VBG) 95 mmol/L (98-106); Hematocrit-VBG 39 % (36.0-47.0); Hemoglobin (Hb) 13.3 g/dL (11.7-16.0); Potassium (VBG) 4.82 mmol/L (3.70-5.30); Sodium 134 mmol/L (133-146); pH (venous) 7.455 (7.32-7.43)
[2023-09-02] MEDS: ALPRAZolam 0.25 MG TAB PO PRN ×2 (09:55→20:25)
[2023-09-02] MEDS: Acetaminophen 325 MG TAB PO PRN ×2 (09:57→20:24)
[2023-09-02] MEDS: Transdermal Patch Removal TOP SCH (20:24)
[2023-09-03] MEDS: HYDROcodone/Acetaminophen 5/325 mg Tablet PO PRN ×3 (00:08→16:10)
[2023-09-03] MEDS: Morphine 2 MG/ML VIAL SLOW IVP PRN (05:08)
[2023-09-03] MEDS: Nicotine 14 MG PATCH TD PRN (05:08)
[2023-09-03] MEDS: LevoFLOXacin 750 MG TAB PO SCH (05:15)
[2023-09-03 06:24] LABS: #Monocytes 0.4 thou/uL (0.11-0.59); %Basophils 0.1 % (0.0-1.0); %Lymphocytes 4.5 % (21.0-51.0); %Monocytes 4.7 % (0.0-10.0); %Neutrophils 89.9 % (42.0-75.0); Hematocrit 41.7 % (36.0-47.0); Hemoglobin 12.5 g/dL (12.0-16.0); Mean Corpuscular Hemoglobin 29.2 pg (27.0-31.0); Mean Corpuscular Volume 97.4 fl (78.0-98.0); Mean Platelet Volume 10.1 fL (7.4-10.4); Platelet Count 214 10x3/uL (130-400); RBC Distribution Width 15.5 % (11.5-14.5); Red Blood Cell (RBC) Count 4.28 mill/uL (4.20-5.40); White Blood Cell (WBC) Count 8.9 10x3/uL (4.8-10.8)
[2023-09-03 06:50] LABS: Anion Gap 12 mmol/L (10-20); BUN (Urea Nitrogen) 24 mg/dL (9.8-20.1); Calc. Creatinine Clearance 84 mL/min (70-130); Calcium 8.9 mg/dL (7.8-10.44); Carbon Dioxide 37 mmol/L (23-31); Chloride 95 mmol/L (98-107); Estimated GFR 102; Glucose 128 mg/dL (80-115); Potassium 4.5 mmol/L (3.5-5.1); Sodium 139 mmol/L (136-145)
[2023-09-03] MEDS: Budesonide 0.5 MG/2 ML NEB NEB SCH ×2 (07:18→19:36)
[2023-09-03] MEDS: Ipratropium/Albuterol 3 ML NEB NEB SCH ×4 (07:19→23:10)
[2023-09-03] MEDS: cloNIDine 0.1 MG TAB PO SCH ×3 (08:03→20:51)
[2023-09-03] MEDS: Lidocaine 4% Patch TD SCH (08:03)
[2023-09-03] MEDS: Aspirin 81 mg Enteric Coated Tablet PO SCH (08:04)
[2023-09-03] MEDS: dilTIAZem 30 MG TAB PO SCH ×2 (08:04→20:50)
[2023-09-03] MEDS: Famotidine 20 MG TAB PO SCH ×2 (08:04→20:51)
[2023-09-03] MEDS: hydrALAZINE 25 MG TAB PO SCH ×3 (08:05→20:50)
[2023-09-03] MEDS: Losartan 25 MG TAB PO SCH ×2 (08:05→20:51)
[2023-09-03] MEDS: methylPREDNISolone Sod Succ 40 MG VIAL IVP SCH ×2 (08:05→20:51)
[2023-09-03] MEDS ORDERED: Folic Acid 1 MG TAB PO SCH (10:30)
[2023-09-03] MEDS ORDERED: Thiamine 100 MG TAB PO SCH (10:30)
[2023-09-03] MEDS: Multivitamins, Adult 10 ML, Folic Acid 1 MG, Thiamine HCl 100 MG in Dextrose 5 %-0.45 %... IV SCH (11:56)
[2023-09-03] MEDS: Acetaminophen 325 MG TAB PO PRN (20:51)
[2023-09-03] MEDS: Transdermal Patch Removal TOP SCH (20:51)
[2023-09-03] MEDS: ALPRAZolam 0.25 MG TAB PO PRN (21:06)
[2023-09-04] MEDS: HYDROcodone/Acetaminophen 5/325 mg Tablet PO PRN ×4 (05:17→18:13)
[2023-09-04] MEDS: Nicotine 14 MG PATCH TD PRN (05:18)
[2023-09-04] MEDS: LevoFLOXacin 750 MG TAB PO SCH (05:18)
[2023-09-04] MEDS: Budesonide 0.5 MG/2 ML NEB NEB SCH ×2 (06:54→17:53)
[2023-09-04] MEDS: Ipratropium/Albuterol 3 ML NEB NEB SCH ×4 (06:55→23:31)
[2023-09-04] MEDS: methylPREDNISolone Sod Succ 40 MG VIAL IVP SCH ×2 (08:45→19:44)
[2023-09-04] MEDS: Losartan 25 MG TAB PO SCH ×2 (08:46→19:44)
[2023-09-04] MEDS: hydrALAZINE 25 MG TAB PO SCH ×3 (08:46→19:44)
[2023-09-04] MEDS: dilTIAZem 30 MG TAB PO SCH ×2 (08:46→19:43)
[2023-09-04] MEDS: Famotidine 20 MG TAB PO SCH ×2 (08:46→19:43)
[2023-09-04] MEDS: Aspirin 81 mg Enteric Coated Tablet PO SCH (08:46)
[2023-09-04] MEDS: cloNIDine 0.1 MG TAB PO SCH ×3 (08:46→19:42)
[2023-09-04] MEDS: Thiamine 100 MG TAB PO SCH (08:46)
[2023-09-04] MEDS: Lidocaine 4% Patch TD SCH (08:46)
[2023-09-04] MEDS: Folic Acid 1 MG TAB PO SCH (08:47)
[2023-09-04] MEDS: ALPRAZolam 0.25 MG TAB PO PRN ×2 (10:14→19:45)
[2023-09-04] MEDS: Morphine 2 MG/ML VIAL SLOW IVP PRN ×2 (12:16→15:13)
[2023-09-04] MEDS: Multivitamins, Adult 10 ML, Folic Acid 1 MG, Thiamine HCl 100 MG in Dextrose 5 %-0.45 %... IV SCH (12:30)
[2023-09-04] MEDS: QUEtiapine 25 MG TAB PO SCH (19:44)
[2023-09-04] MEDS: Transdermal Patch Removal TOP SCH (19:54)
[2023-09-05] MEDS: LevoFLOXacin 750 MG TAB PO SCH (06:02)
[2023-09-05] MEDS: HYDROcodone/Acetaminophen 5/325 mg Tablet PO PRN (06:02)
[2023-09-05] MEDS: Budesonide 0.5 MG/2 ML NEB NEB SCH ×2 (07:01→18:09)
[2023-09-05] MEDS: Ipratropium/Albuterol 3 ML NEB NEB SCH ×4 (07:01→23:37)
[2023-09-05] MEDS: Aspirin 81 mg Enteric Coated Tablet PO SCH (10:00)
[2023-09-05] MEDS: cloNIDine 0.1 MG TAB PO SCH ×3 (10:00→21:37)
[2023-09-05] MEDS: dilTIAZem 30 MG TAB PO SCH ×2 (10:00→21:38)
[2023-09-05] MEDS: Folic Acid 1 MG TAB PO SCH (10:01)
[2023-09-05] MEDS: hydrALAZINE 25 MG TAB PO SCH ×3 (10:01→21:38)
[2023-09-05] MEDS: Famotidine 20 MG TAB PO SCH ×2 (10:01→21:38)
[2023-09-05] MEDS: Losartan 25 MG TAB PO SCH ×2 (10:02→21:37)
[2023-09-05] MEDS: Lidocaine 4% Patch TD SCH (10:02)
[2023-09-05] MEDS: methylPREDNISolone Sod Succ 40 MG VIAL IVP SCH ×2 (10:03→21:39)
[2023-09-05] MEDS: Thiamine 100 MG TAB PO SCH (10:03)
[2023-09-05] MEDS ORDERED: Furosemide 40 MG/4 ML VIAL SLOW IVP SCH (12:15)
[2023-09-05] MEDS: metroNIDAZOLE 500 MG in Premix 1 BAG IVPB SCH ×2 (13:03→21:37)
[2023-09-05] MEDS: Multivitamins, Adult 10 ML, Folic Acid 1 MG, Thiamine HCl 100 MG in Dextrose 5 %-0.45 %... IV SCH (13:03)
[2023-09-05] MEDS: QUEtiapine 25 MG TAB PO SCH (21:39)
[2023-09-05] MEDS: Transdermal Patch Removal TOP SCH (21:39)
[2023-09-06] MEDS: HYDROcodone/Acetaminophen 5/325 mg Tablet PO PRN ×3 (00:06→21:36)
[2023-09-06] MEDS: LevoFLOXacin 750 MG TAB PO SCH (06:23)
[2023-09-06] MEDS: metroNIDAZOLE 500 MG in Premix 1 BAG IVPB SCH ×3 (06:25→21:30)
[2023-09-06 06:49] LABS: #Monocytes 0.4 thou/uL (0.11-0.59); #Neutrophils 4.5 thou/uL (1.40-6.50); %Basophils 0.2 % (0.0-1.0); %Lymphocytes 3.7 % (21.0-51.0); %Monocytes 7.2 % (0.0-10.0); %Neutrophils 86.6 % (42.0-75.0); Hematocrit 35.9 % (36.0-47.0); Hemoglobin 11.3 g/dL (12.0-16.0); Mean Corpuscular HGB CONC 31.5 g/dL (32.0-36.0); Mean Corpuscular Hemoglobin 29.8 pg (27.0-31.0); Mean Corpuscular Volume 94.7 fl (78.0-98.0); Mean Platelet Volume 9.7 fL (7.4-10.4); Platelet Count 208 10x3/uL (130-400); RBC Distribution Width 14.6 % (11.5-14.5); Red Blood Cell (RBC) Count 3.79 mill/uL (4.20-5.40); White Blood Cell (WBC) Count 5.2 10x3/uL (4.8-10.8)
[2023-09-06] MEDS: Ipratropium/Albuterol 3 ML NEB NEB SCH ×4 (07:19→23:36)
[2023-09-06] MEDS: Budesonide 0.5 MG/2 ML NEB NEB SCH ×2 (07:19→18:12)
[2023-09-06 07:24] LABS: Anion Gap 10 mmol/L (10-20); BUN (Urea Nitrogen) 24 mg/dL (9.8-20.1); CRP (Inflammatory) Less than 0.50 mg/dL (= or < 0.5); Calc. Creatinine Clearance 86 mL/min (70-130); Calcium 8.2 mg/dL (7.8-10.44); Carbon Dioxide 34 mmol/L (23-31); Chloride 96 mmol/L (98-107); Estimated GFR 103; Glucose 126 mg/dL (80-115); Potassium 4.2 mmol/L (3.5-5.1); Sodium 136 mmol/L (136-145)
[2023-09-06] MEDS: Aspirin 81 mg Enteric Coated Tablet PO SCH (08:29)
[2023-09-06] MEDS: Losartan 25 MG TAB PO SCH ×2 (08:30→21:29)
[2023-09-06] MEDS: cloNIDine 0.1 MG TAB PO SCH ×3 (08:30→21:29)
[2023-09-06] MEDS: dilTIAZem 30 MG TAB PO SCH ×2 (08:30→21:30)
[2023-09-06] MEDS: Thiamine 100 MG TAB PO SCH (08:30)
[2023-09-06] MEDS: Famotidine 20 MG TAB PO SCH ×2 (08:30→21:30)
[2023-09-06] MEDS: Furosemide 40 MG TAB PO SCH (08:31)
[2023-09-06] MEDS: Folic Acid 1 MG TAB PO SCH (08:31)
[2023-09-06] MEDS: methylPREDNISolone Sod Succ 40 MG VIAL IVP SCH ×2 (08:31→21:30)
[2023-09-06] MEDS: hydrALAZINE 25 MG TAB PO SCH ×3 (08:31→21:30)
[2023-09-06] MEDS: Lidocaine 4% Patch TD SCH (08:32)
[2023-09-06] MEDS: Multivitamins, Adult 10 ML, Folic Acid 1 MG, Thiamine HCl 100 MG in Dextrose 5 %-0.45 %... IV SCH (13:46)
[2023-09-06] MEDS: QUEtiapine 25 MG TAB PO SCH (21:31)
[2023-09-06] MEDS: Transdermal Patch Removal TOP SCH (21:31)
[2023-09-07] MEDS: HYDROcodone/Acetaminophen 5/325 mg Tablet PO PRN ×2 (05:36→23:05)
[2023-09-07] MEDS: metroNIDAZOLE 500 MG in Premix 1 BAG IVPB SCH ×3 (05:37→21:04)
[2023-09-07] MEDS: LevoFLOXacin 750 MG TAB PO SCH (05:37)
[2023-09-07] MEDS: Budesonide 0.5 MG/2 ML NEB NEB SCH ×2 (07:00→18:36)
[2023-09-07] MEDS: Ipratropium/Albuterol 3 ML NEB NEB SCH ×4 (07:00→22:22)
[2023-09-07] MEDS: Furosemide 40 MG TAB PO SCH (09:41)
[2023-09-07] MEDS: dilTIAZem 30 MG TAB PO SCH ×2 (09:41→21:02)
[2023-09-07] MEDS: Aspirin 81 mg Enteric Coated Tablet PO SCH (09:41)
[2023-09-07] MEDS: cloNIDine 0.1 MG TAB PO SCH ×3 (09:41→21:02)
[2023-09-07] MEDS: Lidocaine 4% Patch TD SCH (09:42)
[2023-09-07] MEDS: Folic Acid 1 MG TAB PO SCH (09:42)
[2023-09-07] MEDS: Famotidine 20 MG TAB PO SCH ×2 (09:42→21:02)
[2023-09-07] MEDS: methylPREDNISolone Sod Succ 40 MG VIAL IVP SCH ×2 (09:42→21:03)
[2023-09-07] MEDS: Losartan 25 MG TAB PO SCH ×2 (09:42→21:02)
[2023-09-07] MEDS: hydrALAZINE 25 MG TAB PO SCH ×3 (09:42→21:03)
[2023-09-07] MEDS: Thiamine 100 MG TAB PO SCH (09:53)
[2023-09-07] MEDS ORDERED: Nicotine 21 MG PATCH TD SCH (10:00)
[2023-09-07] MEDS: QUEtiapine 25 MG TAB PO SCH (21:02)
[2023-09-07] MEDS: Transdermal Patch Removal TOP SCH (21:04)
[2023-09-08] MEDS: HYDROcodone/Acetaminophen 5/325 mg Tablet PO PRN ×4 (03:28→20:05)
[2023-09-08 04:56] LABS: #Monocytes 0.6 thou/uL (0.11-0.59); #Neutrophils 8.8 thou/uL (1.40-6.50); %Basophils 0.2 % (0.0-1.0); %Lymphocytes 1.9 % (21.0-51.0); %Monocytes 5.6 % (0.0-10.0); %Neutrophils 90.2 % (42.0-75.0); Hematocrit 35.3 % (36.0-47.0); Hemoglobin 11.4 g/dL (12.0-16.0); Mean Corpuscular HGB CONC 32.3 g/dL (32.0-36.0); Mean Corpuscular Hemoglobin 29.4 pg (27.0-31.0); Mean Platelet Volume 9.9 fL (7.4-10.4); Platelet Count 253 10x3/uL (130-400); RBC Distribution Width 14.3 % (11.5-14.5); Red Blood Cell (RBC) Count 3.88 mill/uL (4.20-5.40); White Blood Cell (WBC) Count 9.8 10x3/uL (4.8-10.8)
[2023-09-08 05:22] LABS: Anion Gap 11 mmol/L (10-20); BUN (Urea Nitrogen) 25 mg/dL (9.8-20.1); Calc. Creatinine Clearance 79 mL/min (70-130); Calcium 8.2 mg/dL (7.8-10.44); Carbon Dioxide 33 mmol/L (23-31); Chloride 93 mmol/L (98-107); Estimated GFR 101; Glucose 141 mg/dL (80-115); Potassium 3.4 mmol/L (3.5-5.1); Sodium 134 mmol/L (136-145)
[2023-09-08] MEDS: LevoFLOXacin 750 MG TAB PO SCH (06:12)
[2023-09-08] MEDS: metroNIDAZOLE 500 MG in Premix 1 BAG IVPB SCH (06:13)
[2023-09-08] MEDS: Budesonide 0.5 MG/2 ML NEB NEB SCH ×2 (07:24→19:06)
[2023-09-08] MEDS: Ipratropium/Albuterol 3 ML NEB NEB SCH ×4 (07:25→22:25)
[2023-09-08] MEDS ORDERED: Potassium Chloride 20 MEQ TAB PO SCH (08:00)
[2023-09-08] MEDS ORDERED: tiZANidine HCl 4 MG TAB PO SCH (09:45)
[2023-09-08] MEDS: Famotidine 20 MG TAB PO SCH ×2 (09:54→20:04)
[2023-09-08] MEDS: Furosemide 40 MG TAB PO SCH (09:54)
[2023-09-08] MEDS: Losartan 25 MG TAB PO SCH ×2 (09:54→20:07)
[2023-09-08] MEDS: predniSONE 20 MG TAB PO SCH (09:54)
[2023-09-08] MEDS: metroNIDAZOLE 500 MG TAB PO SCH ×3 (09:55→20:04)
[2023-09-08] MEDS: hydrALAZINE 25 MG TAB PO SCH ×3 (09:55→20:06)
[2023-09-08] MEDS: Thiamine 100 MG TAB PO SCH (09:55)
[2023-09-08] MEDS: cloNIDine 0.1 MG TAB PO SCH ×3 (09:55→20:06)
[2023-09-08] MEDS: dilTIAZem 30 MG TAB PO SCH ×2 (09:56→20:06)
[2023-09-08] MEDS: Aspirin 81 mg Enteric Coated Tablet PO SCH (09:56)
[2023-09-08] MEDS: Folic Acid 1 MG TAB PO SCH (09:56)
[2023-09-08] MEDS: Nicotine 21 MG PATCH TD SCH (09:57)
[2023-09-08] MEDS: Lidocaine 4% Patch TD SCH (09:57)
[2023-09-08] MEDS: ALPRAZolam 0.25 MG TAB PO PRN ×2 (09:57→20:04)
[2023-09-08] MEDS ORDERED: Lidocaine 4% Patch TD SCH ×3 (15:00)
[2023-09-08] MEDS: tiZANidine HCl 4 MG TAB PO SCH (20:04)
[2023-09-08] MEDS: QUEtiapine 25 MG TAB PO SCH (20:05)
[2023-09-08] MEDS: Transdermal Patch Removal TOP SCH (20:07)
[2023-09-09] MEDS ORDERED: Transdermal Patch Removal TOP SCH (03:00)
[2023-09-09] MEDS: HYDROcodone/Acetaminophen 5/325 mg Tablet PO PRN ×3 (03:15→20:45)
[2023-09-09] MEDS: LevoFLOXacin 750 MG TAB PO SCH (05:25)
[2023-09-09 06:33] LABS: Anion Gap 13 mmol/L (10-20); BUN (Urea Nitrogen) 30 mg/dL (9.8-20.1); Calc. Creatinine Clearance 70 mL/min (70-130); Carbon Dioxide 33 mmol/L (23-31); Chloride 94 mmol/L (98-107); Estimated GFR 98; Glucose 76 mg/dL (80-115); Potassium 3.7 mmol/L (3.5-5.1); Sodium 136 mmol/L (136-145)
[2023-09-09] MEDS: Ipratropium/Albuterol 3 ML NEB NEB SCH ×4 (06:39→22:28)
[2023-09-09] MEDS: Budesonide 0.5 MG/2 ML NEB NEB SCH ×2 (06:43→18:44)
[2023-09-09] MEDS: Lidocaine 4% Patch TD SCH (10:15)
[2023-09-09] MEDS: dilTIAZem 30 MG TAB PO SCH (10:16)
[2023-09-09] MEDS: hydrALAZINE 25 MG TAB PO SCH ×2 (10:16→13:53)
[2023-09-09] MEDS: Folic Acid 1 MG TAB PO SCH (10:16)
[2023-09-09] MEDS: Aspirin 81 mg Enteric Coated Tablet PO SCH (10:16)
[2023-09-09] MEDS: Furosemide 40 MG TAB PO SCH (10:16)
[2023-09-09] MEDS: cloNIDine 0.1 MG TAB PO SCH ×2 (10:16→13:53)
[2023-09-09] MEDS: Famotidine 20 MG TAB PO SCH ×2 (10:16→20:44)
[2023-09-09] MEDS: predniSONE 20 MG TAB PO SCH (10:16)
[2023-09-09] MEDS: Nicotine 21 MG PATCH TD SCH (10:17)
[2023-09-09] MEDS: metroNIDAZOLE 500 MG TAB PO SCH ×3 (10:17→20:44)
[2023-09-09] MEDS: Thiamine 100 MG TAB PO SCH (10:17)
[2023-09-09] MEDS: tiZANidine HCl 4 MG TAB PO SCH ×2 (10:17→20:44)
[2023-09-09] MEDS: Losartan 25 MG TAB PO SCH (10:17)
[2023-09-09] MEDS: ALPRAZolam 0.25 MG TAB PO PRN (10:17)
[2023-09-09] MEDS ORDERED: Docusate 100 MG CAP PO PRN (13:04)
[2023-09-09] MEDS ORDERED: Sodium Chloride 0.9% 500 ML IV SCH (18:45)
[2023-09-09] MEDS: QUEtiapine 25 MG TAB PO SCH (20:44)
[2023-09-09] MEDS: Transdermal Patch Removal TOP SCH (20:45)
[2023-09-10] MEDS: HYDROcodone/Acetaminophen 5/325 mg Tablet PO PRN ×4 (01:19→20:57)
[2023-09-10] MEDS: LevoFLOXacin 750 MG TAB PO SCH (05:30)
[2023-09-10] MEDS: Ipratropium/Albuterol 3 ML NEB NEB SCH ×3 (06:28→18:50)
[2023-09-10] MEDS: Budesonide 0.5 MG/2 ML NEB NEB SCH ×2 (06:30→18:51)
[2023-09-10] MEDS: metroNIDAZOLE 500 MG TAB PO SCH ×3 (09:22→20:56)
[2023-09-10] MEDS: predniSONE 20 MG TAB PO SCH (09:22)
[2023-09-10] MEDS: Nicotine 21 MG PATCH TD SCH (09:22)
[2023-09-10] MEDS: Folic Acid 1 MG TAB PO SCH (09:22)
[2023-09-10] MEDS: Famotidine 20 MG TAB PO SCH ×2 (09:22→20:56)
[2023-09-10] MEDS: tiZANidine HCl 4 MG TAB PO SCH ×2 (09:22→20:56)
[2023-09-10] MEDS: Aspirin 81 mg Enteric Coated Tablet PO SCH (09:22)
[2023-09-10] MEDS: Thiamine 100 MG TAB PO SCH (09:22)
[2023-09-10] MEDS: Lidocaine 4% Patch TD SCH (12:51)
[2023-09-10] MEDS: ALPRAZolam 0.25 MG TAB PO PRN (20:56)
[2023-09-10] MEDS: Transdermal Patch Removal TOP SCH (20:57)
[2023-09-10] MEDS: QUEtiapine 25 MG TAB PO SCH (20:57)
[2023-09-11] MEDS: Ipratropium/Albuterol 3 ML NEB NEB SCH ×4 (01:28→19:16)
[2023-09-11 05:33] LABS: #Monocytes 1.3 thou/uL (0.11-0.59); #Neutrophils 14.6 thou/uL (1.40-6.50); %Basophils 0.1 % (0.0-1.0); %Lymphocytes 5.7 % (21.0-51.0); %Monocytes 7.5 % (0.0-10.0); %Neutrophils 85.6 % (42.0-75.0); Hematocrit 21.1 % (36.0-47.0); Hemoglobin 6.9 g/dL (12.0-16.0); Mean Corpuscular HGB CONC 32.7 g/dL (32.0-36.0); Mean Corpuscular Hemoglobin 30.3 pg (27.0-31.0); Mean Corpuscular Volume 92.5 fl (78.0-98.0); Platelet Count 279 10x3/uL (130-400); RBC Distribution Width 14.4 % (11.5-14.5); Red Blood Cell (RBC) Count 2.28 mill/uL (4.20-5.40)
[2023-09-11] MEDS: HYDROcodone/Acetaminophen 5/325 mg Tablet PO PRN ×4 (05:38→20:10)
[2023-09-11 05:58] LABS: Anion Gap 13 mmol/L (10-20); BUN (Urea Nitrogen) 31 mg/dL (9.8-20.1); Calc. Creatinine Clearance 63 mL/min (70-130); Calcium 8.2 mg/dL (7.8-10.44); Carbon Dioxide 30 mmol/L (23-31); Chloride 98 mmol/L (98-107); Estimated GFR 86; Glucose 80 mg/dL (80-115); Potassium 3.5 mmol/L (3.5-5.1); Sodium 137 mmol/L (136-145)
[2023-09-11] MEDS: Budesonide 0.5 MG/2 ML NEB NEB SCH ×2 (07:01→19:16)
[2023-09-11] MEDS ORDERED: Potassium Chloride 20 MEQ TAB PO SCH (08:00)
[2023-09-11] MEDS: predniSONE 20 MG TAB PO SCH (08:29)
[2023-09-11] MEDS: Thiamine 100 MG TAB PO SCH (08:29)
[2023-09-11] MEDS: tiZANidine HCl 4 MG TAB PO SCH ×2 (08:29→20:13)
[2023-09-11] MEDS: Nicotine 21 MG PATCH TD SCH (08:29)
[2023-09-11] MEDS: Aspirin 81 mg Enteric Coated Tablet PO SCH (08:29)
[2023-09-11] MEDS: metroNIDAZOLE 500 MG TAB PO SCH ×3 (08:29→20:14)
[2023-09-11] MEDS: Famotidine 20 MG TAB PO SCH ×2 (08:29→20:14)
[2023-09-11] MEDS: Folic Acid 1 MG TAB PO SCH (08:29)
[2023-09-11] MEDS: Lidocaine 4% Patch TD SCH (08:30)
[2023-09-11 10:30] LABS: Iron 28 ug/dL (50-170); Iron Binding Capacity, Total 223 mcg/dL (265-497)
[2023-09-11] MEDS ORDERED: cloNIDine 0.1 MG TAB PO SCH ×2 (10:54→21:00)
[2023-09-11] MEDS: QUEtiapine 25 MG TAB PO SCH (20:14)
[2023-09-11] MEDS: Transdermal Patch Removal TOP SCH (20:16)
[2023-09-12] MEDS ORDERED: Sodium Chloride 0.9% 500 ML IV SCH (01:00)
[2023-09-12] MEDS: Ipratropium/Albuterol 3 ML NEB NEB SCH ×5 (01:34→23:47)
[2023-09-12] MEDS: HYDROcodone/Acetaminophen 5/325 mg Tablet PO PRN (06:15)
[2023-09-12 06:32] LABS: Anion Gap 14 mmol/L (10-20); BUN (Urea Nitrogen) 29 mg/dL (9.8-20.1); Calc. Creatinine Clearance 80 mL/min (70-130); Calcium 7.8 mg/dL (7.8-10.44); Carbon Dioxide 27 mmol/L (23-31); Chloride 101 mmol/L (98-107); Estimated GFR 101; Glucose 74 mg/dL (80-115); Potassium 4.2 mmol/L (3.5-5.1); Sodium 138 mmol/L (136-145)
[2023-09-12 06:41] LABS: #Monocytes 1.1 thou/uL (0.11-0.59); #Neutrophils 10.9 thou/uL (1.40-6.50); %Basophils 0.1 % (0.0-1.0); %Monocytes 8.1 % (0.0-10.0); Hematocrit 17.2 % (36.0-47.0); Hemoglobin 5.5 g/dL (12.0-16.0); Mean Corpuscular Hemoglobin 30.4 pg (27.0-31.0); Mean Platelet Volume 9.8 fL (7.4-10.4); Platelet Count 289 10x3/uL (130-400); RBC Distribution Width 14.9 % (11.5-14.5); Red Blood Cell (RBC) Count 1.81 mill/uL (4.20-5.40); White Blood Cell (WBC) Count 13.1 10x3/uL (4.8-10.8)
[2023-09-12] MEDS: Budesonide 0.5 MG/2 ML NEB NEB SCH ×2 (07:13→18:57)
[2023-09-12] MEDS: tiZANidine HCl 4 MG TAB PO SCH (08:12)
[2023-09-12] MEDS: Famotidine 20 MG TAB PO SCH (08:12)
[2023-09-12] MEDS: predniSONE 20 MG TAB PO SCH (08:12)
[2023-09-12] MEDS: Nicotine 21 MG PATCH TD SCH (08:12)
[2023-09-12] MEDS: Thiamine 100 MG TAB PO SCH (08:12)
[2023-09-12] MEDS: Lidocaine 4% Patch TD SCH (08:12)
[2023-09-12] MEDS: metroNIDAZOLE 500 MG TAB PO SCH ×3 (08:12→21:07)
[2023-09-12] MEDS: Aspirin 81 mg Enteric Coated Tablet PO SCH (08:12)
[2023-09-12] MEDS: Folic Acid 1 MG TAB PO SCH (08:12)
[2023-09-12] MEDS ORDERED: Ferrous Gluconate 324 MG TAB PO SCH (09:00)
[2023-09-12] MEDS ORDERED: Polyethylene Glycol 3350 17 GM Packet PO PRN (10:38)
[2023-09-12] MEDS ORDERED: Bisacodyl 10 MG SUPP PR PRN (10:38)
[2023-09-12] MEDS ORDERED: Bisacodyl 10 MG SUPP PR SCH (13:00)
[2023-09-12] MEDS: Transdermal Patch Removal TOP SCH (21:07)
[2023-09-12] MEDS: QUEtiapine 25 MG TAB PO SCH (21:07)
[2023-09-12] MEDS: Acetaminophen 325 MG TAB PO PRN (21:15)
[2023-09-12] MEDS: hydrALAZINE 20 MG/ML VIAL SLOW IVP PRN (23:21)
[2023-09-13 05:03] LABS: #Monocytes 0.8 thou/uL (0.11-0.59); #Neutrophils 8.3 thou/uL (1.40-6.50); %Basophils 0.1 % (0.0-1.0); %Eosinophils 0.1 % (0.0-10.0); %Lymphocytes 10.8 % (21.0-51.0); %Monocytes 7.6 % (0.0-10.0); %Neutrophils 77.3 % (42.0-75.0); Mean Corpuscular HGB CONC 34.3 g/dL (32.0-36.0); Mean Corpuscular Hemoglobin 29.9 pg (27.0-31.0); Mean Platelet Volume 9.2 fL (7.4-10.4); Platelet Count 239 10x3/uL (130-400); RBC Distribution Width 17.3 % (11.5-14.5); Red Blood Cell (RBC) Count 3.08 mill/uL (4.20-5.40); White Blood Cell (WBC) Count 10.8 10x3/uL (4.8-10.8)
[2023-09-13 05:25] LABS: Anion Gap 12 mmol/L (10-20); BUN (Urea Nitrogen) 29 mg/dL (9.8-20.1); Calc. Creatinine Clearance 86 mL/min (70-130); Calcium 7.9 mg/dL (7.8-10.44); Carbon Dioxide 27 mmol/L (23-31); Chloride 101 mmol/L (98-107); Estimated GFR 103; Glucose 81 mg/dL (80-115); Potassium 3.9 mmol/L (3.5-5.1); Sodium 136 mmol/L (136-145)
[2023-09-13 05:26] LABS: Hematocrit 26.8 % (36.0-47.0); Hemoglobin 9.2 g/dL (12.0-16.0)
[2023-09-13] MEDS: Budesonide 0.5 MG/2 ML NEB NEB SCH ×2 (07:15→18:20)
[2023-09-13] MEDS: Ipratropium/Albuterol 3 ML NEB NEB SCH ×3 (07:15→18:18)
[2023-09-13] MEDS: predniSONE 20 MG TAB PO SCH (09:02)
[2023-09-13] MEDS: Ferrous Gluconate 324 MG TAB PO SCH (09:02)
[2023-09-13] MEDS: Thiamine 100 MG TAB PO SCH (09:03)
[2023-09-13] MEDS: metroNIDAZOLE 500 MG TAB PO SCH ×3 (09:03→20:17)
[2023-09-13] MEDS: Nicotine 21 MG PATCH TD SCH (09:03)
[2023-09-13] MEDS: Folic Acid 1 MG TAB PO SCH (09:03)
[2023-09-13] MEDS: Aspirin 81 mg Enteric Coated Tablet PO SCH (09:03)
[2023-09-13] MEDS: Lidocaine 4% Patch TD SCH (09:03)
[2023-09-13] MEDS: Polyethylene Glycol 3350 17 GM Packet PO SCH (09:04)
[2023-09-13] MEDS: hydrALAZINE 20 MG/ML VIAL SLOW IVP PRN ×2 (10:46→23:08)
[2023-09-13] MEDS: ALPRAZolam 0.25 MG TAB PO PRN ×2 (10:55→23:16)
[2023-09-13] MEDS: Acetaminophen 500 MG TAB PO SCH ×2 (15:19→20:17)
[2023-09-13] MEDS: QUEtiapine 25 MG TAB PO SCH (20:17)
[2023-09-13] MEDS: Transdermal Patch Removal TOP SCH (20:25)
[2023-09-14] MEDS: Ipratropium/Albuterol 3 ML NEB NEB SCH ×4 (00:32→18:42)
[2023-09-14] MEDS: Budesonide 0.5 MG/2 ML NEB NEB SCH ×2 (06:19→18:43)
[2023-09-14 06:22] LABS: #Monocytes 0.8 thou/uL (0.11-0.59); #Neutrophils 7.7 thou/uL (1.40-6.50); %Basophils 0.2 % (0.0-1.0); %Eosinophils 0.1 % (0.0-10.0); %Lymphocytes 10.3 % (21.0-51.0); %Monocytes 8.5 % (0.0-10.0); %Neutrophils 78.6 % (42.0-75.0); Hematocrit 26.5 % (36.0-47.0); Hemoglobin 8.8 g/dL (12.0-16.0); Mean Corpuscular HGB CONC 33.2 g/dL (32.0-36.0); Mean Corpuscular Hemoglobin 29.6 pg (27.0-31.0); Mean Corpuscular Volume 89.2 fl (78.0-98.0); Mean Platelet Volume 9.6 fL (7.4-10.4); Platelet Count 274 10x3/uL (130-400); RBC Distribution Width 17.5 % (11.5-14.5); Red Blood Cell (RBC) Count 2.97 mill/uL (4.20-5.40); White Blood Cell (WBC) Count 9.8 10x3/uL (4.8-10.8)
[2023-09-14 06:58] LABS: Anion Gap 9 mmol/L (10-20); BUN (Urea Nitrogen) 20 mg/dL (9.8-20.1); Calc. Creatinine Clearance 87 mL/min (70-130); Calcium 7.8 mg/dL (7.8-10.44); Carbon Dioxide 30 mmol/L (23-31); Chloride 102 mmol/L (98-107); Estimated GFR 103; Glucose 98 mg/dL (80-115); Potassium 3.9 mmol/L (3.5-5.1); Sodium 137 mmol/L (136-145)
[2023-09-14] MEDS: metroNIDAZOLE 500 MG TAB PO SCH ×3 (09:15→20:22)
[2023-09-14] MEDS: Thiamine 100 MG TAB PO SCH (09:15)
[2023-09-14] MEDS: Acetaminophen 500 MG TAB PO SCH ×3 (09:15→20:22)
[2023-09-14] MEDS: Ferrous Gluconate 324 MG TAB PO SCH (09:15)
[2023-09-14] MEDS: Folic Acid 1 MG TAB PO SCH (09:15)
[2023-09-14] MEDS: Aspirin 81 mg Enteric Coated Tablet PO SCH (09:16)
[2023-09-14] MEDS: Lidocaine 4% Patch TD SCH (09:16)
[2023-09-14] MEDS: Polyethylene Glycol 3350 17 GM Packet PO SCH (09:17)
[2023-09-14] MEDS: Nicotine 21 MG PATCH TD SCH (09:17)
[2023-09-14] MEDS: hydrALAZINE 25 MG TAB PO SCH (15:15)
[2023-09-14] MEDS: Losartan 25 MG TAB PO SCH (20:22)
[2023-09-14] MEDS: QUEtiapine 25 MG TAB PO SCH (20:22)
[2023-09-14] MEDS: Transdermal Patch Removal TOP SCH (20:23)
[2023-09-15] MEDS: Ipratropium/Albuterol 3 ML NEB NEB SCH ×4 (02:54→18:21)
[2023-09-15 06:37] LABS: Anion Gap 11 mmol/L (10-20); BUN (Urea Nitrogen) 13 mg/dL (9.8-20.1); Calc. Creatinine Clearance 87 mL/min (70-130); Calcium 8.1 mg/dL (7.8-10.44); Carbon Dioxide 26 mmol/L (23-31); Chloride 104 mmol/L (98-107); Estimated GFR 103; Glucose 79 mg/dL (80-115); Potassium 3.9 mmol/L (3.5-5.1); Sodium 137 mmol/L (136-145)
[2023-09-15 06:42] LABS: #Monocytes 0.9 thou/uL (0.11-0.59); #Neutrophils 9.3 thou/uL (1.40-6.50); %Basophils 0.2 % (0.0-1.0); %Eosinophils 0.3 % (0.0-10.0); %Lymphocytes 7.6 % (21.0-51.0); %Monocytes 7.5 % (0.0-10.0); Hematocrit 30.7 % (36.0-47.0); Hemoglobin 9.9 g/dL (12.0-16.0); Mean Corpuscular HGB CONC 32.2 g/dL (32.0-36.0); Mean Corpuscular Hemoglobin 29.7 pg (27.0-31.0); Mean Platelet Volume 9.2 fL (7.4-10.4); Platelet Count 269 10x3/uL (130-400); RBC Distribution Width 17.9 % (11.5-14.5); Red Blood Cell (RBC) Count 3.33 mill/uL (4.20-5.40); White Blood Cell (WBC) Count 11.3 10x3/uL (4.8-10.8)
[2023-09-15 06:51] LABS: Mean Corpuscular Volume 92.2 fl (78.0-98.0)
[2023-09-15] MEDS: Budesonide 0.5 MG/2 ML NEB NEB SCH ×2 (07:31→18:22)
[2023-09-15] MEDS: metroNIDAZOLE 500 MG TAB PO SCH (09:20)
[2023-09-15] MEDS: Acetaminophen 500 MG TAB PO SCH ×3 (09:20→20:48)
[2023-09-15] MEDS: Ferrous Gluconate 324 MG TAB PO SCH (09:20)
[2023-09-15] MEDS: Losartan 25 MG TAB PO SCH ×2 (09:21→20:50)
[2023-09-15] MEDS: Aspirin 81 mg Enteric Coated Tablet PO SCH (09:21)
[2023-09-15] MEDS: Folic Acid 1 MG TAB PO SCH (09:22)
[2023-09-15] MEDS: Nicotine 21 MG PATCH TD SCH (09:22)
[2023-09-15] MEDS: Lidocaine 4% Patch TD SCH (09:22)
[2023-09-15] MEDS: Thiamine 100 MG TAB PO SCH (09:22)
[2023-09-15] MEDS: Polyethylene Glycol 3350 17 GM Packet PO SCH (09:48)
[2023-09-15] MEDS: hydrALAZINE 25 MG TAB PO SCH (15:45)
[2023-09-15] MEDS: dilTIAZem 30 MG TAB PO SCH (20:49)
[2023-09-15] MEDS: Transdermal Patch Removal TOP SCH (20:50)
[2023-09-15] MEDS: QUEtiapine 25 MG TAB PO SCH (20:50)
[2023-09-16] MEDS: Ipratropium/Albuterol 3 ML NEB NEB SCH ×5 (00:26→23:14)
[2023-09-16] MEDS: Budesonide 0.5 MG/2 ML NEB NEB SCH ×2 (06:37→18:21)
[2023-09-16] MEDS: Ferrous Gluconate 324 MG TAB PO SCH (08:48)
[2023-09-16] MEDS: Nicotine 21 MG PATCH TD SCH (08:48)
[2023-09-16] MEDS: Folic Acid 1 MG TAB PO SCH (08:49)
[2023-09-16] MEDS: Acetaminophen 500 MG TAB PO SCH ×3 (08:49→21:48)
[2023-09-16] MEDS: Lidocaine 4% Patch TD SCH (08:49)
[2023-09-16] MEDS: Thiamine 100 MG TAB PO SCH (08:49)
[2023-09-16] MEDS: dilTIAZem 30 MG TAB PO SCH ×2 (08:49→21:48)
[2023-09-16] MEDS: Losartan 25 MG TAB PO SCH ×2 (08:49→21:48)
[2023-09-16] MEDS: Aspirin 81 mg Enteric Coated Tablet PO SCH (08:49)
[2023-09-16] MEDS: Furosemide 40 MG TAB PO SCH (08:49)
[2023-09-16] MEDS: Polyethylene Glycol 3350 17 GM Packet PO SCH (08:50)
[2023-09-16] MEDS: hydrALAZINE 25 MG TAB PO SCH (15:08)
[2023-09-16] MEDS: Transdermal Patch Removal TOP SCH (21:49)
[2023-09-16] MEDS: QUEtiapine 25 MG TAB PO SCH (21:49)
[2023-09-17] MEDS: Budesonide 0.5 MG/2 ML NEB NEB SCH ×2 (06:39→21:08)
[2023-09-17] MEDS: Ipratropium/Albuterol 3 ML NEB NEB SCH ×3 (06:46→21:09)
[2023-09-17] MEDS: Thiamine 100 MG TAB PO SCH (09:14)
[2023-09-17] MEDS: Losartan 25 MG TAB PO SCH ×2 (09:14→20:21)
[2023-09-17] MEDS: Folic Acid 1 MG TAB PO SCH (09:15)
[2023-09-17] MEDS: dilTIAZem 30 MG TAB PO SCH ×2 (09:15→20:22)
[2023-09-17] MEDS: Acetaminophen 500 MG TAB PO SCH ×3 (09:15→20:22)
[2023-09-17] MEDS: Ferrous Gluconate 324 MG TAB PO SCH (09:15)
[2023-09-17] MEDS: Nicotine 21 MG PATCH TD SCH (09:15)
[2023-09-17] MEDS: Furosemide 40 MG TAB PO SCH (09:15)
[2023-09-17] MEDS: Lidocaine 4% Patch TD SCH (09:15)
[2023-09-17] MEDS: Aspirin 81 mg Enteric Coated Tablet PO SCH (09:15)
[2023-09-17] MEDS: Polyethylene Glycol 3350 17 GM Packet PO SCH (09:16)
[2023-09-17] MEDS: hydrALAZINE 25 MG TAB PO SCH (15:20)
[2023-09-17] MEDS: QUEtiapine 25 MG TAB PO SCH (20:21)
[2023-09-17] MEDS: Transdermal Patch Removal TOP SCH (20:23)
[2023-09-18] MEDS: Ipratropium/Albuterol 3 ML NEB NEB SCH ×4 (00:38→19:28)
[2023-09-18] MEDS ORDERED: traMADol HCl 50 MG TAB PO SCH (04:15)
[2023-09-18] MEDS: Budesonide 0.5 MG/2 ML NEB NEB SCH ×2 (06:38→19:28)
[2023-09-18] MEDS: Nicotine 21 MG PATCH TD SCH (09:04)
[2023-09-18] MEDS: Polyethylene Glycol 3350 17 GM Packet PO SCH (09:04)
[2023-09-18] MEDS: Lidocaine 4% Patch TD SCH (09:04)
[2023-09-18] MEDS: Aspirin 81 mg Enteric Coated Tablet PO SCH (09:05)
[2023-09-18] MEDS: Thiamine 100 MG TAB PO SCH (09:05)
[2023-09-18] MEDS: Folic Acid 1 MG TAB PO SCH (09:05)
[2023-09-18] MEDS: Ferrous Gluconate 324 MG TAB PO SCH (09:05)
[2023-09-18] MEDS: Acetaminophen 500 MG TAB PO SCH ×3 (09:06→20:42)
[2023-09-18] MEDS: dilTIAZem 30 MG TAB PO SCH ×2 (09:06→20:41)
[2023-09-18] MEDS: Losartan 25 MG TAB PO SCH ×2 (09:07→20:42)
[2023-09-18] MEDS: traMADol HCl 50 MG TAB PO PRN ×2 (11:15→20:46)
[2023-09-18] MEDS: hydrALAZINE 25 MG TAB PO SCH (15:36)
[2023-09-18] MEDS: QUEtiapine 25 MG TAB PO SCH (20:42)
[2023-09-18] MEDS: Transdermal Patch Removal TOP SCH (20:43)
[2023-09-19] MEDS: Ipratropium/Albuterol 3 ML NEB NEB SCH ×4 (01:23→19:27)
[2023-09-19] MEDS: traMADol HCl 50 MG TAB PO PRN (01:37)
[2023-09-19] MEDS: Budesonide 0.5 MG/2 ML NEB NEB SCH ×2 (06:24→19:29)
[2023-09-19] MEDS: Lidocaine 4% Patch TD SCH (08:15)
[2023-09-19] MEDS: Polyethylene Glycol 3350 17 GM Packet PO SCH (08:16)
[2023-09-19] MEDS: Nicotine 21 MG PATCH TD SCH (08:16)
[2023-09-19] MEDS: dilTIAZem 30 MG TAB PO SCH ×2 (08:17→20:17)
[2023-09-19] MEDS: Ferrous Gluconate 324 MG TAB PO SCH (08:18)
[2023-09-19] MEDS: Thiamine 100 MG TAB PO SCH (08:18)
[2023-09-19] MEDS: Losartan 25 MG TAB PO SCH ×2 (08:18→20:14)
[2023-09-19] MEDS: Acetaminophen 500 MG TAB PO SCH ×3 (08:18→20:14)
[2023-09-19] MEDS: Folic Acid 1 MG TAB PO SCH (08:19)
[2023-09-19] MEDS: Aspirin 81 mg Enteric Coated Tablet PO SCH (08:19)
[2023-09-19] MEDS: hydrALAZINE 25 MG TAB PO SCH (15:25)
[2023-09-19] MEDS: QUEtiapine 25 MG TAB PO SCH (20:14)
[2023-09-19] MEDS: Transdermal Patch Removal TOP SCH (20:17)
[2023-09-20] MEDS: Ipratropium/Albuterol 3 ML NEB NEB SCH ×4 (01:21→18:13)
[2023-09-20] MEDS: traMADol HCl 50 MG TAB PO PRN (02:44)
[2023-09-20] MEDS: Budesonide 0.5 MG/2 ML NEB NEB SCH ×2 (06:34→18:11)
[2023-09-20] MEDS: dilTIAZem 30 MG TAB PO SCH ×2 (08:04→20:38)
[2023-09-20] MEDS: Nicotine 21 MG PATCH TD SCH (08:04)
[2023-09-20] MEDS: Folic Acid 1 MG TAB PO SCH (08:04)
[2023-09-20] MEDS: Losartan 25 MG TAB PO SCH ×2 (08:04→20:38)
[2023-09-20] MEDS: Ferrous Gluconate 324 MG TAB PO SCH (08:04)
[2023-09-20] MEDS: Aspirin 81 mg Enteric Coated Tablet PO SCH (08:04)
[2023-09-20] MEDS: Acetaminophen 500 MG TAB PO SCH ×3 (08:04→20:36)
[2023-09-20] MEDS: Thiamine 100 MG TAB PO SCH (08:04)
[2023-09-20] MEDS: Polyethylene Glycol 3350 17 GM Packet PO SCH (08:05)
[2023-09-20] MEDS: Lidocaine 4% Patch TD SCH (08:05)
[2023-09-20] MEDS ORDERED: Pantoprazole 40 MG VIAL IVP SCH (12:00)
[2023-09-20] MEDS: hydrALAZINE 25 MG TAB PO SCH (14:15)
[2023-09-20] MEDS: QUEtiapine 25 MG TAB PO SCH (20:36)
[2023-09-20] MEDS: Pantoprazole 40 MG VIAL IVP SCH (20:38)
[2023-09-20] MEDS: Transdermal Patch Removal TOP SCH (20:38)
[2023-09-21] MEDS: Ipratropium/Albuterol 3 ML NEB NEB SCH ×3 (00:42→13:22)
[2023-09-21] MEDS: traMADol HCl 50 MG TAB PO PRN (02:30)
[2023-09-21] MEDS ORDERED: traMADol HCl 50 MG TAB PO SCH (05:45)
[2023-09-21] MEDS: Budesonide 0.5 MG/2 ML NEB NEB SCH (06:16)
[2023-09-21 07:13] LABS: #Eosinphils 0.1 thou/uL (0.0-0.7); #Monocytes 0.6 thou/uL (0.11-0.59); #Neutrophils 4.9 thou/uL (1.40-6.50); %Basophils 0.2 % (0.0-1.0); %Eosinophils 1.1 % (0.0-10.0); %Lymphocytes 8.2 % (21.0-51.0); %Monocytes 9.2 % (0.0-10.0); %Neutrophils 80.8 % (42.0-75.0); Hematocrit 32.9 % (36.0-47.0); Hemoglobin 10.4 g/dL (12.0-16.0); Mean Corpuscular HGB CONC 31.6 g/dL (32.0-36.0); Mean Corpuscular Hemoglobin 30.1 pg (27.0-31.0); Mean Corpuscular Volume 95.1 fl (78.0-98.0); Mean Platelet Volume 9.3 fL (7.4-10.4); Platelet Count 190 10x3/uL (130-400); RBC Distribution Width 17.1 % (11.5-14.5); Red Blood Cell (RBC) Count 3.46 mill/uL (4.20-5.40); White Blood Cell (WBC) Count 6.1 10x3/uL (4.8-10.8)
[2023-09-21 07:39] LABS: Anion Gap 11 mmol/L (10-20); BUN (Urea Nitrogen) 13 mg/dL (9.8-20.1); Calc. Creatinine Clearance 109 mL/min (70-130); Calcium 8.5 mg/dL (7.8-10.44); Carbon Dioxide 29 mmol/L (23-31); Chloride 102 mmol/L (98-107); Estimated GFR 109; Glucose 77 mg/dL (80-115); Sodium 138 mmol/L (136-145)
[2023-09-21] MEDS: Polyethylene Glycol 3350 17 GM Packet PO SCH (08:05)
[2023-09-21] MEDS: Lidocaine 4% Patch TD SCH (08:05)
[2023-09-21] MEDS: Nicotine 21 MG PATCH TD SCH (08:05)
[2023-09-21] MEDS: Pantoprazole 40 MG VIAL IVP SCH (08:05)
[2023-09-21] MEDS: dilTIAZem 30 MG TAB PO SCH (08:05)
[2023-09-21] MEDS: Ferrous Gluconate 324 MG TAB PO SCH (08:06)
[2023-09-21] MEDS: Thiamine 100 MG TAB PO SCH (08:06)
[2023-09-21] MEDS: Acetaminophen 500 MG TAB PO SCH ×2 (08:06→14:45)
[2023-09-21] MEDS: Losartan 25 MG TAB PO SCH (08:06)
[2023-09-21] MEDS: Aspirin 81 mg Enteric Coated Tablet PO SCH (08:06)
[2023-09-21] MEDS: Folic Acid 1 MG TAB PO SCH (08:07)
[2023-09-21 08:18] VITALS: BP 130/81; TEMP 98.9
[2023-09-21] MEDS: hydrALAZINE 25 MG TAB PO SCH (14:46)
== END 2023-09-21 16:59 | disposition home or self-care (01) | DRG 193 ==
LOC: ERS 21:06 → CCU 23:07 → 2NO 08-28 15:36 → T4-A 09-02 12:27
PROVIDERS: ADMIT Student in an Organized Health Care Education/Training Program; ATTEND Internal Medicine
PROC: 4A033R1 Measurement of Arterial Saturation, Peripheral, Percutaneous Approach (ICD-10-PCS; 2023-08-28)
PROC: 30233N1 Transfusion of Nonautologous Red Blood Cells into Peripheral Vein, Percutaneous Approach (ICD-10-PCS; principal; 2023-09-12)
DX: J10.00 Influenza due to other identified influenza virus with unspecified type of pneumonia (principal); I21.A1 Myocardial infarction type 2; J96.01 Acute respiratory failure with hypoxia; S22.31XA Fracture of one rib, right side, initial encounter for closed fracture; I16.1 Hypertensive emergency; J44.1 Chronic obstructive pulmonary disease with (acute) exacerbation; E46 Unspecified protein-calorie malnutrition; J90 Pleural effusion, not elsewhere classified; G93.40 Encephalopathy, unspecified; J10.1 Influenza due to other identified influenza virus with other respiratory manifestations; B19.20 Unspecified viral hepatitis C without hepatic coma; D64.9 Anemia, unspecified; I10 Essential (primary) hypertension; F17.210 Nicotine dependence, cigarettes, uncomplicated; R41.0 Disorientation, unspecified; F19.10 Other psychoactive substance abuse, uncomplicated; K21.9 Gastro-esophageal reflux disease without esophagitis; Z86.73 Personal history of transient ischemic attack (TIA), and cerebral infarction without residual deficits; Z88.0 Allergy status to penicillin; Z98.890 Other specified postprocedural states; Z90.710 Acquired absence of both cervix and uterus; Z79.899 Other long term (current) drug therapy; Z79.82 Long term (current) use of aspirin; Z90.49 Acquired absence of other specified parts of digestive tract; Z90.89 Acquired absence of other organs; Z68.21 Body mass index [BMI] 21.0-21.9, adult; Z78.1 Physical restraint status; Z71.6 Tobacco abuse counseling; Z11.52 Encounter for screening for COVID-19
CPT/HCPCS: 36415; 36430; 70450; 71045; 71275; 80048; 80053; 80061; 80306; 82728; 82805; 83540; 83550; 83605; 83735; 83880; 84145; 84443; 84484; 85025; 85046; 85379; 86140; 86850; 86900; 86901; 93005; 93306; 94640; 94660; 96365; 96367; 96372; 96375; C9113; J0360; J1100; J1650; J1885; J1940; J2060; J2270; J2272; J2920; J3411; J3475; J3490; J7030; J7042; J7512; J7611; J7620; J7626; P9016; Q0162; Q9967

== ENCOUNTER 2023-09-22 10:15 | Inpatient (IN) | payer OTHER, SELFPAY ==
[2023-09-22 11:13] LABS: #Monocytes 0.8 thou/uL (0.11-0.59); #Neutrophils 5.2 thou/uL (1.40-6.50); %Basophils 0.2 % (0.0-1.0); %Eosinophils 0.3 % (0.0-10.0); %Lymphocytes 6.1 % (21.0-51.0); %Monocytes 11.9 % (0.0-10.0); Hematocrit 34.7 % (36.0-47.0); Hemoglobin 11.2 g/dL (12.0-16.0); Mean Corpuscular HGB CONC 32.3 g/dL (32.0-36.0); Mean Corpuscular Hemoglobin 29.9 pg (27.0-31.0); Mean Corpuscular Volume 92.8 fl (78.0-98.0); Mean Platelet Volume 9.1 fL (7.4-10.4); Platelet Count 236 10x3/uL (130-400); RBC Distribution Width 16.6 % (11.5-14.5); Red Blood Cell (RBC) Count 3.74 mill/uL (4.20-5.40); White Blood Cell (WBC) Count 6.4 10x3/uL (4.8-10.8)
[2023-09-22 11:40] LABS: ALT (SGPT) 45 U/L (8-55); AST (SGOT) 38 U/L (5-34); Albumin 3.2 g/dL (3.4-4.8); Alkaline Phosphatase 165 U/L (40-110); Anion Gap 14 mmol/L (10-20); BUN (Urea Nitrogen) 14 mg/dL (9.8-20.1); Bilirubin, Total 1.6 mg/dL (0.2-1.2); Calc. Creatinine Clearance 0 mL/min (70-130); Calcium 9.3 mg/dL (7.8-10.44); Carbon Dioxide 29 mmol/L (23-31); Chloride 100 mmol/L (98-107); Estimated GFR 105; Globulin 3.7 g/dL (2.4-3.5); Glucose 83 mg/dL (80-115); Lipase 22 U/L (8-78); Magnesium 1.8 mg/dL (1.6-2.6); Potassium 4.1 mmol/L (3.5-5.1); Protein, Total 6.9 g/dL (5.8-8.1); Sodium 139 mmol/L (136-145)
[2023-09-22 11:43] LABS: Troponin I 0.013 ng/mL (< 0.028)
[2023-09-22 14:03] LABS: Bacteria/HPF 1+ HPF (None Seen); Bilirubin Negative (Negative); Blood, Urine 1+ (Negative); CAUTI Indications for Culture Dysuria,urgency,freq; Clarity Clear (Clear); Glucose, Urine (Dipstick) Normal (Negative); Ketone, Urine 10 mg/dL (Negative); Leukocyte 250 Leu/uL (Negative); Nitrite Negative (Negative); Protein, Urine (Dipstick) 20 mg/dL (Neg-Trace); Specific Gravity, Urine 1.019 (1.002-1.036); Squamous Epithelial 0-3 HPF (0-3); pH, Urine 6.5 (5.0-9.0)
[2023-09-22 14:05] LABS: Urine Culture Reflex No No
[2023-09-22] MEDS ORDERED: cloNIDine 0.1 MG TAB ONE (14:53)
[2023-09-22] MEDS ORDERED: Ondansetron PF 4 MG/2 ML Vial IVP PRN (15:03)
[2023-09-22] MEDS ORDERED: Acetaminophen 650 MG Suppository PR PRN (15:03)
[2023-09-22] MEDS ORDERED: Ondansetron ODT 4 MG TAB PO PRN (15:03)
[2023-09-22] MEDS ORDERED: Aspirin/APAP/Caffeine Tab (Excedrin Migraine) PO PRN (15:05)
[2023-09-22] MEDS ORDERED: Ipratropium/Albuterol 3 ML NEB NEB PRN (15:37)
[2023-09-22 15:41] VITALS: BMI 20.1
[2023-09-22] MEDS ORDERED: Albuterol 2.5 MG (3 mL) NEB NEB PRN (16:11)
[2023-09-22] MEDS: traMADol HCl 50 MG TAB PO PRN ×2 (16:22→23:22)
[2023-09-22] MEDS: Ipratropium/Albuterol 3 ML NEB NEB SCH ×3 (17:30→17:36)
[2023-09-22] MEDS ORDERED: Ipratropium/Albuterol 3 ML NEB NEB SCH ×2 (18:30)
[2023-09-22 18:31] LABS: Amphetamine Not Detected (NotDetected); Barbiturates Screen Not Detected (NotDetected); Benzodiazepine Screen Not Detected (NotDetected); Cocaine Metabolite Screen Not Detected (NotDetected); Methadone Not Detected (NotDetected); Methamphetamine Not Detected (NotDetected); Opiate Screen Not Detected (NotDetected); Oxycodone Screen Not Detected (NotDetected); Phencyclidine (PCP) Not Detected (NotDetected); THC/Cannabinoid Screen Not Detected (NotDetected); Tricyclic Screen Not Detected (NotDetected)
[2023-09-22] MEDS ORDERED: Ipratropium/Albuterol 3 ML NEB ONE (18:43)
[2023-09-22] MEDS: dilTIAZem 30 MG TAB PO SCH (20:43)
[2023-09-22] MEDS: Acetaminophen 325 MG TAB PO PRN (20:44)
[2023-09-22] MEDS: hydrALAZINE 25 MG TAB PO SCH (20:46)
[2023-09-22] MEDS: cloNIDine 0.2 MG TAB PO SCH (20:47)
[2023-09-22] MEDS ORDERED: cloNIDine 0.2 MG TAB PO SCH (21:00)
[2023-09-23] MEDS: Ipratropium/Albuterol 3 ML NEB NEB SCH ×5 (01:41→23:33)
[2023-09-23] MEDS: Acetaminophen 325 MG TAB PO PRN ×2 (03:31→17:23)
[2023-09-23 06:17] LABS: #Eosinphils 0.1 thou/uL (0.0-0.7); #Monocytes 0.7 thou/uL (0.11-0.59); #Neutrophils 3.7 thou/uL (1.40-6.50); %Basophils 0.4 % (0.0-1.0); %Eosinophils 2.2 % (0.0-10.0); %Lymphocytes 10.8 % (21.0-51.0); %Neutrophils 73.2 % (42.0-75.0); Hematocrit 31.4 % (36.0-47.0); Hemoglobin 9.9 g/dL (12.0-16.0); Mean Corpuscular HGB CONC 31.5 g/dL (32.0-36.0); Mean Corpuscular Hemoglobin 29.7 pg (27.0-31.0); Mean Corpuscular Volume 94.3 fl (78.0-98.0); Mean Platelet Volume 8.8 fL (7.4-10.4); Platelet Count 238 10x3/uL (130-400); RBC Distribution Width 16.6 % (11.5-14.5); Red Blood Cell (RBC) Count 3.33 mill/uL (4.20-5.40); White Blood Cell (WBC) Count 5.1 10x3/uL (4.8-10.8)
[2023-09-23 06:40] LABS: Anion Gap 11 mmol/L (10-20); BUN (Urea Nitrogen) 13 mg/dL (9.8-20.1); Calc. Creatinine Clearance 98 mL/min (70-130); Calcium 8.4 mg/dL (7.8-10.44); Carbon Dioxide 29 mmol/L (23-31); Chloride 102 mmol/L (98-107); Estimated GFR 108; Glucose 83 mg/dL (80-115); Potassium 3.9 mmol/L (3.5-5.1); Sodium 138 mmol/L (136-145)
[2023-09-23] MEDS: dilTIAZem 30 MG TAB PO SCH ×2 (08:34→20:48)
[2023-09-23] MEDS: hydrALAZINE 25 MG TAB PO SCH ×3 (08:34→20:47)
[2023-09-23] MEDS: traMADol HCl 50 MG TAB PO PRN ×2 (08:34→20:48)
[2023-09-23] MEDS: Aspirin 81 mg Enteric Coated Tablet PO SCH (08:35)
[2023-09-23] MEDS: Ferrous Gluconate 324 MG TAB PO SCH (08:35)
[2023-09-23] MEDS: cloNIDine 0.2 MG TAB PO SCH ×3 (08:35→20:47)
[2023-09-24] MEDS: Acetaminophen 325 MG TAB PO PRN ×2 (04:39→17:47)
[2023-09-24] MEDS: Ipratropium/Albuterol 3 ML NEB NEB SCH ×4 (06:40→22:59)
[2023-09-24] MEDS: dilTIAZem 30 MG TAB PO SCH ×2 (09:19→20:11)
[2023-09-24] MEDS: hydrALAZINE 25 MG TAB PO SCH ×3 (09:19→20:11)
[2023-09-24] MEDS: cloNIDine 0.2 MG TAB PO SCH ×3 (09:20→20:10)
[2023-09-24] MEDS: Ferrous Gluconate 324 MG TAB PO SCH (09:20)
[2023-09-24] MEDS: Aspirin 81 mg Enteric Coated Tablet PO SCH (09:20)
[2023-09-24] MEDS: traMADol HCl 50 MG TAB PO PRN ×2 (09:24→20:11)
[2023-09-25] MEDS: traMADol HCl 50 MG TAB PO PRN (05:11)
[2023-09-25] MEDS: Ipratropium/Albuterol 3 ML NEB NEB SCH (06:43)
[2023-09-25] MEDS: Ferrous Gluconate 324 MG TAB PO SCH (08:16)
[2023-09-25] MEDS: Aspirin 81 mg Enteric Coated Tablet PO SCH (08:16)
[2023-09-25] MEDS: cloNIDine 0.2 MG TAB PO SCH (08:17)
[2023-09-25] MEDS: dilTIAZem 30 MG TAB PO SCH (08:17)
[2023-09-25] MEDS: hydrALAZINE 25 MG TAB PO SCH (08:17)
[2023-09-25 10:50] VITALS: BP 117/75; TEMP 98
== END 2023-09-25 10:59 | disposition home or self-care (01) | DRG 948 ==
LOC: ERS 10:15 → T4-A 14:08 → OBSVTOIN 09-23 08:59
PROVIDERS: ADMIT Internal Medicine; ATTEND Internal Medicine
DX: R53.1 Weakness (principal); J96.11 Chronic respiratory failure with hypoxia; J43.9 Emphysema, unspecified; Z99.81 Dependence on supplemental oxygen; K21.9 Gastro-esophageal reflux disease without esophagitis; B18.2 Chronic viral hepatitis C; I10 Essential (primary) hypertension; F17.200 Nicotine dependence, unspecified, uncomplicated; R29.6 Repeated falls; S22.49XD Multiple fractures of ribs, unspecified side, subsequent encounter for fracture with routine healing; Z86.73 Personal history of transient ischemic attack (TIA), and cerebral infarction without residual deficits; I45.10 Unspecified right bundle-branch block; W18.30XA Fall on same level, unspecified, initial encounter; Y92.029 Unspecified place in mobile home as the place of occurrence of the external cause; Z59.11 Inadequate housing environmental temperature; Z59.12 Inadequate housing utilities; Z79.899 Other long term (current) drug therapy; Z79.82 Long term (current) use of aspirin
CPT/HCPCS: 36415; 70450; 71045; 80048; 80053; 80306; 81001; 82550; 83605; 83690; 83735; 84484; 85025; 93005; 94640; 96360; G0378; J7620

== ENCOUNTER 2023-10-06 10:23 | Inpatient (IN) | payer OTHER, SELFPAY ==
[2023-10-06] MEDS ORDERED: Morphine 4 MG/ML VIAL ONE (11:37)
[2023-10-06 12:06] LABS: #Basophils 0.1 thou/uL (0.0-0.2); #Monocytes 0.9 thou/uL (0.11-0.59); #Neutrophils 4.3 thou/uL (1.40-6.50); %Basophils 0.8 % (0.0-1.0); %Eosinophils 0.3 % (0.0-10.0); %Lymphocytes 16.2 % (21.0-51.0); %Neutrophils 67.4 % (42.0-75.0); Hematocrit 37.8 % (36.0-47.0); Hemoglobin 11.7 g/dL (12.0-16.0); Mean Corpuscular Hemoglobin 30.1 pg (27.0-31.0); Mean Corpuscular Volume 97.2 fl (78.0-98.0); Mean Platelet Volume 9.1 fL (7.4-10.4); Platelet Count 420 10x3/uL (130-400); RBC Distribution Width 16.7 % (11.5-14.5); Red Blood Cell (RBC) Count 3.89 mill/uL (4.20-5.40); White Blood Cell (WBC) Count 6.4 10x3/uL (4.8-10.8)
[2023-10-06 12:36] LABS: ALT (SGPT) 41 U/L (8-55); AST (SGOT) 43 U/L (5-34); Albumin 3.2 g/dL (3.4-4.8); Alkaline Phosphatase 174 U/L (40-110); Anion Gap 9 mmol/L (10-20); BUN (Urea Nitrogen) 6 mg/dL (9.8-20.1); Bilirubin, Total 0.6 mg/dL (0.2-1.2); CK (CPK) 44 U/L (29-168); Calc. Creatinine Clearance 0 mL/min (70-130); Calcium 8.8 mg/dL (7.8-10.44); Carbon Dioxide 32 mmol/L (23-31); Chloride 104 mmol/L (98-107); Estimated GFR 104; Globulin 3.6 g/dL (2.4-3.5); Glucose 77 mg/dL (80-115); Lipase 42 U/L (8-78); Magnesium 1.9 mg/dL (1.6-2.6); Potassium 3.2 mmol/L (3.5-5.1); Protein, Total 6.8 g/dL (5.8-8.1); Sodium 142 mmol/L (136-145)
[2023-10-06 12:39] LABS: Troponin I Less than 0.010 ng/mL (< 0.028)
[2023-10-06] MEDS ORDERED: Acetaminophen 325 MG TAB PO PRN (14:17)
[2023-10-06] MEDS ORDERED: Labetalol HCl 100 MG/20 ML VIAL SLOW IVP PRN (14:21)
[2023-10-06] MEDS ORDERED: Albuterol HFA (OR) 200 PUFF INH INH PRN (14:28)
[2023-10-06] MEDS ORDERED: Labetalol HCl 100 MG/20 ML VIAL ONE (15:45)
[2023-10-06] MEDS ORDERED: Potassium Chloride 20 MEQ TAB PO SCH (17:30)
[2023-10-06] MEDS: cloNIDine 0.2 MG TAB PO SCH ×4 (17:59→20:51)
[2023-10-06] MEDS: traMADol HCl 50 MG TAB PO PRN (18:00)
[2023-10-06] MEDS: hydrALAZINE 25 MG TAB PO SCH ×3 (18:00→20:49)
[2023-10-06 18:07] VITALS: BMI 18.1
[2023-10-06] MEDS: dilTIAZem 30 MG TAB PO SCH (20:50)
[2023-10-06] MEDS ORDERED: Ipratropium/Albuterol 3 ML NEB NEB PRN (23:17)
[2023-10-07] MEDS: traMADol HCl 50 MG TAB PO PRN ×3 (00:23→21:54)
[2023-10-07 07:09] LABS: #Monocytes 0.9 thou/uL (0.11-0.59); #Neutrophils 3.1 thou/uL (1.40-6.50); %Basophils 0.5 % (0.0-1.0); %Eosinophils 0.7 % (0.0-10.0); %Lymphocytes 24.2 % (21.0-51.0); %Monocytes 17.1 % (0.0-10.0); %Neutrophils 56.2 % (42.0-75.0); Hematocrit 36.2 % (36.0-47.0); Mean Corpuscular HGB CONC 30.4 g/dL (32.0-36.0); Mean Corpuscular Hemoglobin 29.8 pg (27.0-31.0); Mean Corpuscular Volume 98.1 fl (78.0-98.0); Mean Platelet Volume 9.3 fL (7.4-10.4); Platelet Count 360 10x3/uL (130-400); RBC Distribution Width 16.9 % (11.5-14.5); Red Blood Cell (RBC) Count 3.69 mill/uL (4.20-5.40); White Blood Cell (WBC) Count 5.5 10x3/uL (4.8-10.8)
[2023-10-07] MEDS ORDERED: Aspirin 81 mg Enteric Coated Tablet PO SCH (07:30)
[2023-10-07 07:32] LABS: Anion Gap 13 mmol/L (10-20); BUN (Urea Nitrogen) 8 mg/dL (9.8-20.1); Calc. Creatinine Clearance 75 mL/min (70-130); Calcium 8.5 mg/dL (7.8-10.44); Carbon Dioxide 29 mmol/L (23-31); Chloride 101 mmol/L (98-107); Estimated GFR 104; Glucose 126 mg/dL (80-115); Potassium 3.6 mmol/L (3.5-5.1); Sodium 139 mmol/L (136-145)
[2023-10-07] MEDS: Ferrous Gluconate 324 MG TAB PO SCH (08:11)
[2023-10-07] MEDS: cloNIDine 0.2 MG TAB PO SCH ×3 (08:11→20:25)
[2023-10-07] MEDS: dilTIAZem 30 MG TAB PO SCH ×2 (08:11→20:26)
[2023-10-07] MEDS: hydrALAZINE 25 MG TAB PO SCH ×3 (08:11→20:26)
[2023-10-07 11:59] LABS: Amphetamine Not Detected (NotDetected); Barbiturates Screen Not Detected (NotDetected); Benzodiazepine Screen Not Detected (NotDetected); Cocaine Metabolite Screen Not Detected (NotDetected); Methadone Not Detected (NotDetected); Methamphetamine Not Detected (NotDetected); Opiate Screen Detected (NotDetected); Oxycodone Screen Not Detected (NotDetected); Phencyclidine (PCP) Not Detected (NotDetected); THC/Cannabinoid Screen Not Detected (NotDetected); Tricyclic Screen Not Detected (NotDetected)
[2023-10-07] MEDS ORDERED: Morphine 2 MG/ML VIAL SLOW IVP PRN (13:24)
[2023-10-07 14:00] LABS: INR-International Normal Ratio 0.9; PTT 25.2 sec (22.9-36.1); Prothrombin Time 12.6 sec (12.0-14.7)
[2023-10-07] MEDS: Lidocaine 4% Patch TD SCH (14:55)
[2023-10-07] MEDS: Ipratropium/Albuterol 3 ML NEB NEB SCH (18:57)
[2023-10-08] MEDS: LIDOCAINE Patch Removal TOP SCH (01:43)
[2023-10-08] MEDS: Ipratropium/Albuterol 3 ML NEB NEB SCH ×3 (07:00→19:00)
[2023-10-08] MEDS: traMADol HCl 50 MG TAB PO PRN ×3 (07:57→22:06)
[2023-10-08] MEDS: Ferrous Gluconate 324 MG TAB PO SCH (07:58)
[2023-10-08] MEDS: dilTIAZem 30 MG TAB PO SCH ×2 (07:58→21:08)
[2023-10-08] MEDS: cloNIDine 0.2 MG TAB PO SCH ×3 (07:58→21:07)
[2023-10-08] MEDS: hydrALAZINE 25 MG TAB PO SCH ×3 (07:58→21:08)
[2023-10-08] MEDS ORDERED: Iopamidol 370 76% 100 ML VIAL ONE (11:07)
[2023-10-08] MEDS: Lidocaine 4% Patch TD SCH (15:50)
[2023-10-09] MEDS: LIDOCAINE Patch Removal TOP SCH (01:22)
[2023-10-09] MEDS: Ipratropium/Albuterol 3 ML NEB NEB SCH ×2 (06:36→12:22)
[2023-10-09] MEDS: cloNIDine 0.2 MG TAB PO SCH ×2 (08:35→12:58)
[2023-10-09] MEDS: Ferrous Gluconate 324 MG TAB PO SCH (08:35)
[2023-10-09] MEDS: hydrALAZINE 25 MG TAB PO SCH ×2 (08:35→15:27)
[2023-10-09] MEDS: traMADol HCl 50 MG TAB PO PRN (08:35)
[2023-10-09] MEDS: dilTIAZem 30 MG TAB PO SCH (08:35)
[2023-10-09 12:46] VITALS: BP 168/93; TEMP 97.9
[2023-10-09] MEDS: Lidocaine 4% Patch TD SCH (15:27)
== END 2023-10-09 15:32 | disposition home or self-care (01) | DRG 555 ==
LOC: ERS 10:23 → SUATTDRO 10:23 → T4-A 14:17 → OBSVTOIN 14:17 → INTOOBSV 14:17 → OBSVTOIN 10-07 12:33 → INTOOBSV 10-07 12:33
PROVIDERS: ADMIT Internal Medicine; ATTEND Internal Medicine
DX: M79.605 Pain in left leg (principal); E43 Unspecified severe protein-calorie malnutrition; S36.892A Contusion of other intra-abdominal organs, initial encounter; J90 Pleural effusion, not elsewhere classified; Z68.1 Body mass index [BMI] 19.9 or less, adult; R64 Cachexia; J44.9 Chronic obstructive pulmonary disease, unspecified; Z66 Do not resuscitate; K21.9 Gastro-esophageal reflux disease without esophagitis; I10 Essential (primary) hypertension; M48.061 Spinal stenosis, lumbar region without neurogenic claudication; F12.90 Cannabis use, unspecified, uncomplicated; F15.90 Other stimulant use, unspecified, uncomplicated; E87.6 Hypokalemia; R53.81 Other malaise; I48.0 Paroxysmal atrial fibrillation; F17.210 Nicotine dependence, cigarettes, uncomplicated; I45.10 Unspecified right bundle-branch block; Z86.73 Personal history of transient ischemic attack (TIA), and cerebral infarction without residual deficits; Z88.0 Allergy status to penicillin; Z79.82 Long term (current) use of aspirin; Z90.49 Acquired absence of other specified parts of digestive tract; Z90.710 Acquired absence of both cervix and uterus; Z98.890 Other specified postprocedural states; Z71.6 Tobacco abuse counseling; R29.6 Repeated falls; Z99.81 Dependence on supplemental oxygen
CPT/HCPCS: 36415; 70450; 71045; 71260; 72125; 72146; 72148; 74176; 80048; 80053; 80306; 82550; 83605; 83690; 83735; 84484; 85025; 85610; 85730; 87116; 87206; 93005; 94640; 96374; 96375; G0378; J2270; J7620; Q9967

== ENCOUNTER 2023-12-07 09:08 | Inpatient (IN) | payer OTHER, SELFPAY ==
[2023-12-07] MEDS ORDERED: Magnesium 2 GM/50 ML BAG (IN WATER) ONE (09:45)
[2023-12-07] MEDS ORDERED: methylPREDNISolone Sod Succ/PF 125 MG/2 ML VIAL ONE (09:45)
[2023-12-07 10:37] LABS: #Monocytes 0.5 thou/uL (0.11-0.59); #Neutrophils 3.7 thou/uL (1.40-6.50); %Basophils 0.4 % (0.0-1.0); %Eosinophils 0.6 % (0.0-10.0); %Lymphocytes 14.5 % (21.0-51.0); %Monocytes 9.6 % (0.0-10.0); %Neutrophils 74.7 % (42.0-75.0); Hemoglobin 13.2 g/dL (12.0-16.0); Mean Corpuscular HGB CONC 31.4 g/dL (32.0-36.0); Mean Corpuscular Hemoglobin 31.1 pg (27.0-31.0); Mean Corpuscular Volume 98.8 fl (78.0-98.0); Mean Platelet Volume 9.8 fL (7.4-10.4); Platelet Count 232 10x3/uL (130-400); RBC Distribution Width 14.5 % (11.5-14.5); Red Blood Cell (RBC) Count 4.25 mill/uL (4.20-5.40); White Blood Cell (WBC) Count 4.9 10x3/uL (4.8-10.8)
[2023-12-07 11:00] LABS: ALT (SGPT) 31 U/L (8-55); AST (SGOT) 38 U/L (5-34); Albumin 3.6 g/dL (3.4-4.8); Alkaline Phosphatase 111 U/L (40-110); Anion Gap 9 mmol/L (10-20); BUN (Urea Nitrogen) 7 mg/dL (9.8-20.1); Bilirubin, Total 0.4 mg/dL (0.2-1.2); Calc. Creatinine Clearance 0 mL/min (70-130); Calcium 8.8 mg/dL (7.8-10.44); Carbon Dioxide 32 mmol/L (23-31); Chloride 104 mmol/L (98-107); Estimated GFR 101; Globulin 3.5 g/dL (2.4-3.5); Glucose 97 mg/dL (80-115); Magnesium 2.4 mg/dL (1.6-2.6); Potassium 3.8 mmol/L (3.5-5.1); Protein, Total 7.1 g/dL (5.8-8.1); Sodium 141 mmol/L (136-145)
[2023-12-07 11:04] LABS: Troponin I 0.067 ng/mL (< 0.028)
[2023-12-07] MEDS ORDERED: Furosemide 20 MG (2 mL) VIAL ONE (11:56)
[2023-12-07] MEDS ORDERED: Sodium Chloride 0.9% 100 ML ONE (11:56)
[2023-12-07] MEDS ORDERED: cefTRIAXone (ROCEPHIN) 1 GM VIAL ONE (11:56)
[2023-12-07] MEDS ORDERED: Aspirin Chewable 81 MG TAB ONE (11:58)
[2023-12-07] MEDS ORDERED: Acetaminophen 325 MG TAB PO PRN (12:22)
[2023-12-07] MEDS ORDERED: Ondansetron PF 4 MG/2 ML Vial IVP PRN (12:22)
[2023-12-07] MEDS ORDERED: Azithromycin 500 MG VIAL ONE (12:36)
[2023-12-07] MEDS: Ipratropium/Albuterol 3 ML NEB NEB SCH (13:48)
[2023-12-07] MEDS ORDERED: hydrALAZINE 25 MG TAB ONE ×2 (14:26→23:21)
[2023-12-07] MEDS ORDERED: cloNIDine 0.1 MG TAB ONE ×2 (14:26→23:21)
[2023-12-07] MEDS: hydrALAZINE 25 MG TAB PO SCH (14:37)
[2023-12-07] MEDS: cloNIDine 0.2 MG TAB PO SCH (14:38)
[2023-12-07 19:28] LABS: Troponin I 0.031 ng/mL (< 0.028)
[2023-12-07] MEDS: Nystatin Powder 15 GM BOT TOP PRN (20:00)
[2023-12-07 22:35] LABS: Troponin I 0.023 ng/mL (< 0.028)
[2023-12-07] MEDS ORDERED: Ipratropium/Albuterol 3 ML NEB ONE (22:39)
[2023-12-07] MEDS ORDERED: methylPREDNISolone Sod Succ 40 MG VIAL ONE (23:21)
[2023-12-07] MEDS: methylPREDNISolone Sod Succ 40 MG VIAL IVP SCH (23:59)
[2023-12-07] MEDS: dilTIAZem 30 MG TAB PO SCH (23:59)
[2023-12-08] MEDS ORDERED: Ipratropium/Albuterol 3 ML NEB ONE (01:20)
[2023-12-08 02:47] VITALS: BMI 20.9
[2023-12-08] MEDS: traMADol HCl 50 MG TAB PO PRN (05:03)
[2023-12-08 06:01] LABS: #Monocytes 0.2 thou/uL (0.11-0.59); #Neutrophils 5.4 thou/uL (1.40-6.50); %Basophils 0.2 % (0.0-1.0); %Lymphocytes 6.2 % (21.0-51.0); %Neutrophils 90.1 % (42.0-75.0); Hematocrit 40.8 % (36.0-47.0); Hemoglobin 12.8 g/dL (12.0-16.0); Mean Corpuscular HGB CONC 31.4 g/dL (32.0-36.0); Mean Corpuscular Hemoglobin 30.5 pg (27.0-31.0); Mean Corpuscular Volume 97.4 fl (78.0-98.0); Mean Platelet Volume 10.5 fL (7.4-10.4); Platelet Count 247 10x3/uL (130-400); RBC Distribution Width 14.5 % (11.5-14.5); Red Blood Cell (RBC) Count 4.19 mill/uL (4.20-5.40)
[2023-12-08 06:27] LABS: Anion Gap 11 mmol/L (10-20); BUN (Urea Nitrogen) 13 mg/dL (9.8-20.1); Calc. Creatinine Clearance 72 mL/min (70-130); Calcium 8.6 mg/dL (7.8-10.44); Carbon Dioxide 29 mmol/L (23-31); Chloride 101 mmol/L (98-107); Estimated GFR 99; Glucose 172 mg/dL (80-115); Potassium 3.9 mmol/L (3.5-5.1); Sodium 137 mmol/L (136-145)
[2023-12-08] MEDS: Furosemide 40 MG (4 mL) VIAL SLOW IVP SCH (08:22)
[2023-12-08] MEDS: Enoxaparin 40 MG (0.4 mL) SYRINGE SC SCH (08:22)
[2023-12-08] MEDS ORDERED: hydrALAZINE 25 MG TAB PO SCH (09:00)
[2023-12-08] MEDS ORDERED: Albuterol 2.5 MG (3 mL) NEB NEB PRN (09:50)
[2023-12-08] MEDS: Aspirin/APAP/Caffeine Tab (Excedrin Migraine) PO PRN (10:42)
[2023-12-08] MEDS: cefTRIAXone\\ROCEPHIN 1 GM in Sodium Chloride 0.9% 100 ML IVPB SCH (12:06)
[2023-12-08] MEDS: methylPREDNISolone Sod Succ 40 MG VIAL IVP SCH (12:08)
[2023-12-08] MEDS: Ipratropium/Albuterol 3 ML NEB NEB SCH (12:50)
[2023-12-08] MEDS: Nicotine 14 MG PATCH TD SCH (13:03)
[2023-12-08] MEDS: hydrALAZINE 25 MG TAB PO SCH (15:14)
[2023-12-09 06:28] LABS: #Monocytes 0.3 thou/uL (0.11-0.59); #Neutrophils 5.3 thou/uL (1.40-6.50); %Basophils 0.2 % (0.0-1.0); %Lymphocytes 7.5 % (21.0-51.0); %Monocytes 4.8 % (0.0-10.0); Hemoglobin 12.3 g/dL (12.0-16.0); Mean Corpuscular HGB CONC 31.5 g/dL (32.0-36.0); Mean Corpuscular Hemoglobin 31.1 pg (27.0-31.0); Mean Corpuscular Volume 98.5 fl (78.0-98.0); Mean Platelet Volume 10.2 fL (7.4-10.4); Platelet Count 265 10x3/uL (130-400); RBC Distribution Width 14.4 % (11.5-14.5); Red Blood Cell (RBC) Count 3.96 mill/uL (4.20-5.40)
[2023-12-09 06:52] LABS: Anion Gap 8 mmol/L (10-20); BUN (Urea Nitrogen) 20 mg/dL (9.8-20.1); Calc. Creatinine Clearance 79 mL/min (70-130); Calcium 8.7 mg/dL (7.8-10.44); Carbon Dioxide 32 mmol/L (23-31); Chloride 100 mmol/L (98-107); Estimated GFR 101; Glucose 137 mg/dL (80-115); Potassium 4.4 mmol/L (3.5-5.1); Sodium 136 mmol/L (136-145)
[2023-12-09] MEDS: Hydrocortisone 1% Cream 30 GM TUBE TOP SCH (20:30)
[2023-12-10 04:47] LABS: #Monocytes 0.5 thou/uL (0.11-0.59); #Neutrophils 5.4 thou/uL (1.40-6.50); %Lymphocytes 5.5 % (21.0-51.0); %Monocytes 8.5 % (0.0-10.0); %Neutrophils 85.5 % (42.0-75.0); Hematocrit 40.8 % (36.0-47.0); Hemoglobin 12.8 g/dL (12.0-16.0); Mean Corpuscular HGB CONC 31.4 g/dL (32.0-36.0); Mean Corpuscular Hemoglobin 30.5 pg (27.0-31.0); Mean Corpuscular Volume 97.1 fl (78.0-98.0); Mean Platelet Volume 10.2 fL (7.4-10.4); Platelet Count 280 10x3/uL (130-400); RBC Distribution Width 14.2 % (11.5-14.5); White Blood Cell (WBC) Count 6.4 10x3/uL (4.8-10.8)
[2023-12-10 05:04] LABS: Anion Gap 14 mmol/L (10-20); BUN (Urea Nitrogen) 26 mg/dL (9.8-20.1); Calc. Creatinine Clearance 66 mL/min (70-130); Calcium 8.7 mg/dL (7.8-10.44); Carbon Dioxide 28 mmol/L (23-31); Chloride 98 mmol/L (98-107); Estimated GFR 96; Glucose 130 mg/dL (80-115); Magnesium 1.9 mg/dL (1.6-2.6); Potassium 3.7 mmol/L (3.5-5.1); Sodium 136 mmol/L (136-145)
[2023-12-10 09:41] VITALS: BP 171/98; TEMP 98.2
== END 2023-12-10 15:00 | disposition home or self-care (01) | DRG 189 ==
LOC: ERS 09:08 → ERHOLD 12:22 → 2NO 16:18 → ERHOLD 16:26 → 2NO 12-08 02:28
PROVIDERS: ADMIT Internal Medicine; ATTEND Hospitalist
DX: J96.01 Acute respiratory failure with hypoxia (principal); I21.A1 Myocardial infarction type 2; J44.1 Chronic obstructive pulmonary disease with (acute) exacerbation; J81.1 Chronic pulmonary edema; B19.20 Unspecified viral hepatitis C without hepatic coma; F17.210 Nicotine dependence, cigarettes, uncomplicated; I11.9 Hypertensive heart disease without heart failure; Z88.0 Allergy status to penicillin; Z79.82 Long term (current) use of aspirin; Z79.899 Other long term (current) drug therapy
CPT/HCPCS: 36415; 71045; 80048; 80053; 83735; 83880; 84484; 85025; 93005; 94640; 96365; 96367; 96375; 97139; J0456; J0696; J1650; J1940; J2920; J2930; J3475; J3490; J7620

== ENCOUNTER 2024-04-06 12:24 | Outpatient (CLI) | payer OTHER ==
[~2024-04-06 12:24] MED LIST changes: +Iopamidol 370 76% 100 ML VIAL ONE; -Iopamidol-370 76% 500 ML MDV (1 ML CHARGE) ONE
[2024-04-06] MEDS ORDERED: Magnevist 469MG/ML 20 ML VIAL ONE (12:41)
== END 2024-04-06 12:25 | disposition home or self-care (01) ==
LOC: CT 12:24
PROVIDERS: ATTEND Internal Medicine Hematology & Oncology
DX: C44.622 Squamous cell carcinoma of skin of right upper limb, including shoulder (principal); R59.0 Localized enlarged lymph nodes
CPT/HCPCS: 71260; A9579; Q9967

== ENCOUNTER 2024-05-22 11:00 | Emergency (ER) | payer OTHER ==
[2024-05-22] MEDS ORDERED: Acetaminophen 500 MG TAB ONE (11:46)
== END 2024-05-22 12:10 | disposition home or self-care (01) ==
LOC: ERS 11:00
DX: L03.113 Cellulitis of right upper limb (principal); L98.9 Disorder of the skin and subcutaneous tissue, unspecified; I10 Essential (primary) hypertension; F17.210 Nicotine dependence, cigarettes, uncomplicated; J44.89 Other specified chronic obstructive pulmonary disease; Z55.0 Illiteracy and low-level literacy; Z86.73 Personal history of transient ischemic attack (TIA), and cerebral infarction without residual deficits
CPT/HCPCS: 99283

== ENCOUNTER 2024-07-15 12:40 | Inpatient (IN) | payer OTHER ==
[2024-07-15 13:37] LABS: #Basophils 0.04 10x3/uL (0.0-0.2); %Basophils 0.3 % (0.0-1.0); %Eosinophils 0.5 % (0.0-10.0); %Lymphocytes 17.8 % (21.0-51.0); %Monocytes 13.2 % (0.0-10.0); %Neutrophils 67.6 % (42.0-75.0); Hematocrit 43.8 % (36.0-47.0); Hemoglobin 14.8 g/dL (12.0-16.0); Mean Corpuscular HGB CONC 33.8 g/dL (32.0-36.0); Mean Corpuscular Hemoglobin 30.4 pg (27.0-31.0); Mean Corpuscular Volume 89.9 fL (78.0-98.0); Mean Platelet Volume 9.7 fL (7.4-10.4); Platelet Count 389 10x3/uL (130-400); RBC Distribution Width 14.2 % (11.5-14.5); Red Blood Cell (RBC) Count 4.87 mill/uL (4.20-5.40)
[2024-07-15 13:58] LABS: ALT (SGPT) 52 U/L (8-55); AST (SGOT) 47 U/L (5-34); Albumin 3.4 g/dL (3.4-4.8); Alkaline Phosphatase 113 U/L (40-110); Anion Gap 19 mmol/L (10-20); BUN (Urea Nitrogen) 60 mg/dL (9.8-20.1); Calc. Creatinine Clearance 0 mL/min (70-130); Calcium 9.6 mg/dL (7.8-10.44); Carbon Dioxide 27 mmol/L (23-31); Chloride 93 mmol/L (98-107); Estimated GFR 20; Globulin 3.7 g/dL (2.4-3.5); Glucose 107 mg/dL (80-115); Protein, Total 7.1 g/dL (5.8-8.1); Sodium 135 mmol/L (136-145)
[2024-07-15 14:11] LABS: Troponin I 0.915 ng/mL (< 0.028)
[2024-07-15] MEDS ORDERED: Aspirin 325 MG TAB ONE (14:43)
[2024-07-15] MEDS ORDERED: cefTRIAXone (ROCEPHIN) 1 GM VIAL ONE (14:43)
[2024-07-15] MEDS ORDERED: Sodium Chloride 0.9% 100 ML ONE (14:44)
[2024-07-15] MEDS ORDERED: Aspirin Chewable 81 MG TAB ONE (14:46)
[2024-07-15] MEDS ORDERED: Vancomycin 1 GM/200 ML (FROZEN) BAG ONE (15:28)
[2024-07-15 15:32] LABS: Bilirubin Negative (Negative); Blood, Urine Negative (Negative); CAUTI Indications for Culture Pelvic or flank pain; Clarity Turbid (Clear); Glucose, Urine (Dipstick) Normal (Negative); Ketone, Urine Negative (Negative); Leukocyte 250 Leu/uL (Negative); Nitrite Negative (Negative); Protein, Urine (Dipstick) 200 mg/dL (Neg-Trace); RBC/HPF 0-3 HPF (0-3); Specific Gravity, Urine 1.019 (1.002-1.036); Squamous Epithelial 21-50 HPF (0-3); Urobilinogen Normal mg/dL (Less than 2); pH, Urine 5.5 (5.0-9.0)
[2024-07-15 15:46] LABS: Bacteria/HPF 1+ HPF (None Seen)
[2024-07-15 15:47] LABS: Urine Culture Reflex Yes Yes
[2024-07-15] MEDS ORDERED: Ondansetron PF 4 MG/2 ML Vial IVP PRN (15:59)
[2024-07-15] MEDS ORDERED: Senokot S 8.6-50 MG TAB PO PRN (15:59)
[2024-07-15] MEDS ORDERED: Guaifenesin DM 100-10/5 ML UDCUP PO PRN (15:59)
[2024-07-15] MEDS ORDERED: Albuterol 2.5 MG (3 mL) NEB NEB PRN ×2 (16:17→20:35)
[2024-07-15 17:35] LABS: Lactic Acid 1.68 mmol/L (0.5-2.2)
[2024-07-15 17:47] VITALS: BMI 20.2
[2024-07-15 17:52] LABS: Troponin I 0.486 ng/mL (< 0.028)
[2024-07-15 17:53] LABS: Troponin I 0.486 ng/mL (< 0.028)
[2024-07-15] MEDS: Mometasone 100 MCG/Formoterol 5 MCG 120 PUFF INHALER INH SCH (19:06)
[2024-07-15] MEDS: Sodium Chloride 0.9% 1,000 ML IV SCH (19:13)
[2024-07-15] MEDS: Nicotine 14 MG PATCH TD SCH (19:19)
[2024-07-15] MEDS: Famotidine 20 MG TAB PO SCH (20:41)
[2024-07-15] MEDS: Atorvastatin Calcium 40 MG TAB PO SCH (21:16)
[2024-07-15] MEDS: traMADol HCl 50 MG TAB PO PRN (21:24)
[2024-07-16] MEDS: traMADol HCl 50 MG TAB PO PRN (03:17)
[2024-07-16 06:20] LABS: #Basophils Less than 0.03 10x3/uL (0.0-0.2); %Basophils 0.1 % (0.0-1.0); %Eosinophils 0.3 % (0.0-10.0); %Lymphocytes 13.6 % (21.0-51.0); %Monocytes 11.4 % (0.0-10.0); %Neutrophils 74.2 % (42.0-75.0); Hematocrit 37.5 % (36.0-47.0); Hemoglobin 12.1 g/dL (12.0-16.0); Mean Corpuscular HGB CONC 32.3 g/dL (32.0-36.0); Mean Corpuscular Hemoglobin 30.8 pg (27.0-31.0); Mean Corpuscular Volume 95.4 fL (78.0-98.0); Mean Platelet Volume 9.7 fL (7.4-10.4); Platelet Count 305 10x3/uL (130-400); RBC Distribution Width 14.5 % (11.5-14.5); Red Blood Cell (RBC) Count 3.93 mill/uL (4.20-5.40)
[2024-07-16 07:20] VITALS: BMI 20.5
[2024-07-16 07:31] LABS: ALT (SGPT) 46 U/L (8-55); AST (SGOT) 42 U/L (5-34); Albumin 2.9 g/dL (3.4-4.8); Alkaline Phosphatase 90 U/L (40-110); Anion Gap 14 mmol/L (10-20); BUN (Urea Nitrogen) 57 mg/dL (9.8-20.1); Bilirubin, Total 0.4 mg/dL (0.2-1.2); Calc. Creatinine Clearance 34 mL/min (70-130); Calcium 7.7 mg/dL (7.8-10.44); Carbon Dioxide 25 mmol/L (23-31); Chloride 101 mmol/L (98-107); Estimated GFR 44; Glucose 99 mg/dL (80-115); Potassium 3.4 mmol/L (3.5-5.1); Protein, Total 5.9 g/dL (5.8-8.1); Sodium 137 mmol/L (136-145)
[2024-07-16] MEDS: Aspirin Chewable 81 MG TAB PO SCH (08:49)
[2024-07-16] MEDS: Enoxaparin 30 MG (0.3 mL) SYRINGE SC SCH (08:49)
[2024-07-16] MEDS: cefTRIAXone\\ROCEPHIN 1 GM in Sodium Chloride 0.9% 100 ML IVPB SCH (16:01)
[2024-07-16] MEDS: Potassium Chloride 20 MEQ TAB PO SCH (17:07)
[2024-07-16] MEDS: Cyclobenzaprine 10 MG TAB PO SCH (21:31)
[2024-07-16] MEDS: Acetaminophen 325 MG TAB PO PRN (22:59)
[2024-07-16] MEDS: Nicotine 14 MG PATCH TD SCH (23:00)
[2024-07-17 06:22] LABS: ALT (SGPT) 55 U/L (8-55); AST (SGOT) 51 U/L (5-34); Alkaline Phosphatase 100 U/L (40-110); Anion Gap 10 mmol/L (10-20); BUN (Urea Nitrogen) 40 mg/dL (9.8-20.1); Bilirubin, Direct 0.2 mg/dL (0.1-0.3); Bilirubin, Total 0.3 mg/dL (0.2-1.2); Calc. Creatinine Clearance 59 mL/min (70-130); Calcium 8.4 mg/dL (7.8-10.44); Carbon Dioxide 27 mmol/L (23-31); Chloride 108 mmol/L (98-107); Estimated GFR 83; Glucose 82 mg/dL (80-115); Potassium 4.4 mmol/L (3.5-5.1); Protein, Total 6.3 g/dL (5.8-8.1); Sodium 141 mmol/L (136-145)
[2024-07-17 06:31] LABS: #Basophils Less than 0.03 10x3/uL (0.0-0.2); %Basophils 0.2 % (0.0-1.0); %Eosinophils 1.6 % (0.0-10.0); %Lymphocytes 20.4 % (21.0-51.0); %Monocytes 12.8 % (0.0-10.0); %Neutrophils 64.7 % (42.0-75.0); Hemoglobin 12.2 g/dL (12.0-16.0); Mean Corpuscular HGB CONC 32.1 g/dL (32.0-36.0); Mean Corpuscular Hemoglobin 30.7 pg (27.0-31.0); Mean Corpuscular Volume 95.7 fL (78.0-98.0); Mean Platelet Volume 9.7 fL (7.4-10.4); Platelet Count 274 10x3/uL (130-400); RBC Distribution Width 14.4 % (11.5-14.5); Red Blood Cell (RBC) Count 3.97 mill/uL (4.20-5.40)
[2024-07-17] MEDS: Losartan 25 MG TAB PO SCH ×2 (09:45→15:43)
[2024-07-17] MEDS: Carvedilol 3.125 MG TAB PO SCH (09:45)
[2024-07-17] MEDS: Enoxaparin 40 MG (0.4 mL) SYRINGE SC SCH (09:45)
[2024-07-17] MEDS: cloNIDine 0.2 MG TAB PO SCH ×2 (15:45→19:47)
[2024-07-17] MEDS: hydrALAZINE 20 MG/ML VIAL SLOW IVP PRN (18:00)
[2024-07-17] MEDS: Labetalol HCl 100 MG/20 ML VIAL SLOW IVP PRN (18:01)
[2024-07-17] MEDS: hydrALAZINE 20 MG/ML VIAL ONE (18:02)
[2024-07-17] MEDS: Labetalol HCl 100 MG/20 ML VIAL ONE (18:03)
[2024-07-17] MEDS: Albuterol 2.5 MG (3 mL) NEB NEB PRN (19:48)
[2024-07-18 00:15] LABS: Amphetamine Not Detected (NotDetected); Barbiturates Screen Not Detected (NotDetected); Benzodiazepine Screen Not Detected (NotDetected); Cocaine Metabolite Screen Not Detected (NotDetected); Methadone Not Detected (NotDetected); Methamphetamine Not Detected (NotDetected); Opiate Screen Not Detected (NotDetected); Oxycodone Screen Not Detected (NotDetected); Phencyclidine (PCP) Not Detected (NotDetected); THC/Cannabinoid Screen Not Detected (NotDetected); Tricyclic Screen Not Detected (NotDetected)
[2024-07-18 04:56] LABS: #Basophils 0.03 10x3/uL (0.0-0.2); %Basophils 0.4 % (0.0-1.0); %Eosinophils 1.4 % (0.0-10.0); %Lymphocytes 20.1 % (21.0-51.0); %Monocytes 13.2 % (0.0-10.0); %Neutrophils 64.5 % (42.0-75.0); Hematocrit 40.7 % (36.0-47.0); Mean Corpuscular HGB CONC 31.9 g/dL (32.0-36.0); Mean Corpuscular Hemoglobin 30.5 pg (27.0-31.0); Mean Corpuscular Volume 95.5 fL (78.0-98.0); Mean Platelet Volume 9.9 fL (7.4-10.4); Platelet Count 250 10x3/uL (130-400); Red Blood Cell (RBC) Count 4.26 mill/uL (4.20-5.40)
[2024-07-18 05:19] LABS: Anion Gap 11 mmol/L (10-20); BUN (Urea Nitrogen) 20 mg/dL (9.8-20.1); Calc. Creatinine Clearance 80 mL/min (70-130); Calcium 8.8 mg/dL (7.8-10.44); Carbon Dioxide 28 mmol/L (23-31); Chloride 104 mmol/L (98-107); Estimated GFR 101; Glucose 79 mg/dL (80-115); Magnesium 1.7 mg/dL (1.6-2.6); Potassium 4.3 mmol/L (3.5-5.1); Sodium 139 mmol/L (136-145)
[2024-07-18] MEDS: traMADol HCl 50 MG TAB PO PRN (05:20)
[2024-07-18] MEDS: Losartan 25 MG TAB PO SCH (08:04)
[2024-07-18] MEDS: Lorazepam 1 MG TAB PO PRN (08:06)
[2024-07-18] MEDS ORDERED: Losartan 25 MG TAB PO SCH (09:00)
[2024-07-18] MEDS: Carvedilol 3.125 MG TAB PO SCH ×2 (10:14→16:51)
[2024-07-18] MEDS ORDERED: traMADol HCl 50 MG TAB PO PRN ×2 (14:02→14:03)
[2024-07-18] MEDS ORDERED: Carvedilol 6.25 MG TAB PO SCH (17:00)
[2024-07-18] MEDS: Famotidine 20 MG TAB PO SCH (21:31)
[2024-07-19] MEDS: Lorazepam 0.5 MG TAB PO PRN (00:37)
[2024-07-19 05:13] LABS: #Basophils 0.03 10x3/uL (0.0-0.2); %Basophils 0.4 % (0.0-1.0); %Eosinophils 2.7 % (0.0-10.0); %Lymphocytes 19.9 % (21.0-51.0); %Neutrophils 61.7 % (42.0-75.0); Hematocrit 39.6 % (36.0-47.0); Hemoglobin 12.2 g/dL (12.0-16.0); Mean Corpuscular HGB CONC 30.8 g/dL (32.0-36.0); Mean Corpuscular Volume 97.3 fL (78.0-98.0); Mean Platelet Volume 10.3 fL (7.4-10.4); Platelet Count 247 10x3/uL (130-400); RBC Distribution Width 14.2 % (11.5-14.5); Red Blood Cell (RBC) Count 4.07 mill/uL (4.20-5.40)
[2024-07-19 05:36] LABS: Anion Gap 11 mmol/L (10-20); BUN (Urea Nitrogen) 19 mg/dL (9.8-20.1); Calc. Creatinine Clearance 65 mL/min (70-130); Calcium 8.4 mg/dL (7.8-10.44); Carbon Dioxide 27 mmol/L (23-31); Chloride 104 mmol/L (98-107); Estimated GFR 95; Glucose 87 mg/dL (80-115); Magnesium 1.6 mg/dL (1.6-2.6); Potassium 3.9 mmol/L (3.5-5.1); Sodium 138 mmol/L (136-145)
[2024-07-19 11:26] VITALS: BP 152/90; TEMP 97.8
[2024-07-19] MEDS: Amlodipine 5 MG TAB PO SCH (14:06)
== END 2024-07-19 15:49 | disposition home health service (06) | DRG 682 ==
LOC: ERS 12:40 → ERHOLD 15:07 → 2NO 17:03
PROVIDERS: ADMIT Internal Medicine; ATTEND Family Medicine
DX: N17.9 Acute kidney failure, unspecified (principal); I21.4 Non-ST elevation (NSTEMI) myocardial infarction; E46 Unspecified protein-calorie malnutrition; N39.0 Urinary tract infection, site not specified; I50.32 Chronic diastolic (congestive) heart failure; E86.0 Dehydration; Z88.0 Allergy status to penicillin; J43.9 Emphysema, unspecified; G43.909 Migraine, unspecified, not intractable, without status migrainosus; Z98.890 Other specified postprocedural states; F32.A Depression, unspecified; F17.210 Nicotine dependence, cigarettes, uncomplicated; I95.1 Orthostatic hypotension; E87.6 Hypokalemia; Z86.73 Personal history of transient ischemic attack (TIA), and cerebral infarction without residual deficits; I11.0 Hypertensive heart disease with heart failure; C44.602 Unspecified malignant neoplasm of skin of right upper limb, including shoulder
CPT/HCPCS: 36415; 36416; 70450; 70551; 71045; 71250; 74177; 80048; 80053; 80076; 80306; 81001; 83605; 83735; 83880; 84484; 85025; 87040; 87086; 93005; 93306; 94640; 97139; J0360; J0696; J1650; J3370-JW; J7030; J7611

== ENCOUNTER 2024-09-28 10:37 | Outpatient (CLI) | payer OTHER | END 2024-09-28 10:38 | disposition home or self-care (01) | LOC: MRI 10:37 | PROVIDERS: ATTEND Student in an Organized Health Care Education/Training Program | DX: R29.898 Other symptoms and signs involving the musculoskeletal system (principal); M51.369 Other intervertebral disc degeneration, lumbar region without mention of lumbar back pain or lower extremity pain; M47.816 Spondylosis without myelopathy or radiculopathy, lumbar region; M47.817 Spondylosis without myelopathy or radiculopathy, lumbosacral region; M48.05 Spinal stenosis, thoracolumbar region; M48.061 Spinal stenosis, lumbar region without neurogenic claudication; M48.07 Spinal stenosis, lumbosacral region | CPT/HCPCS: 72148 ==

== ENCOUNTER 2024-11-15 13:16 | Outpatient (CLI) | payer OTHER ==
[~2024-11-15 13:16] MED LIST changes: -Iopamidol 370 76% 100 ML VIAL ONE; +Magnevist 469MG/ML 20 ML VIAL ONE
== END 2024-11-15 13:17 | disposition home or self-care (01) ==
LOC: MRI 13:16
PROVIDERS: ATTEND Internal Medicine Hematology & Oncology
DX: C44.509 Unspecified malignant neoplasm of skin of other part of trunk (principal); C44.622 Squamous cell carcinoma of skin of right upper limb, including shoulder; D50.8 Other iron deficiency anemias

== ENCOUNTER 2025-04-23 10:53 | Observation (INO) | payer OTHER, MEDICAID ==
[2025-04-23 12:04] LABS: #Basophils 0.03 10x3/uL (0.0-0.2); #Eosinophils 0.14 10x3/uL (0.0-0.7); #Monocytes 0.82 10x3/uL (0.11-0.59); %Basophils 0.4 % (0.0-1.0); %Eosinophils 1.8 % (0.0-10.0); %Monocytes 10.4 % (0.0-10.0); %Neutrophils 68.1 % (42.0-75.0); Hematocrit 50.3 % (36.0-47.0); Hemoglobin 16.6 g/dL (12.0-16.0); Mean Corpuscular Hemoglobin 29.8 pg (27.0-31.0); Mean Corpuscular Volume 90.3 fL (78.0-98.0); Mean Platelet Volume 9.6 fL (7.4-10.4); Platelet Count 306 10x3/uL (130-400); RBC Distribution Width 13.5 % (11.5-14.5); Red Blood Cell (RBC) Count 5.57 mill/uL (4.20-5.40); White Blood Cell (WBC) Count 7.91 10x3/uL (4.8-10.8)
[2025-04-23 12:20] LABS: PTT 28.5 sec (22.9-36.1); Prothrombin Time 13.2 sec (12.0-14.7)
[2025-04-23 12:21] LABS: ALT (SGPT) 61 U/L (Less than 34); AST (SGOT) 81 U/L (11-34); Albumin 3.3 g/dL (3.1-4.5); Alkaline Phosphatase 164 U/L (40-110); Anion Gap 15 mmol/L (10-20); BUN (Urea Nitrogen) 36 mg/dL (9.8-20.1); Bilirubin, Total 0.8 mg/dL (0.3-1.2); Calc. Creatinine Clearance 0 mL/min (70-130); Calcium 9.6 mg/dL (7.8-10.44); Carbon Dioxide 29 mmol/L (23-31); Chloride 95 mmol/L (98-107); Estimated GFR 37; Globulin 4.5 g/dL (2.4-3.5); Glucose 112 mg/dL (80-115); Potassium 3.6 mmol/L (3.5-5.1); Protein, Total 7.8 g/dL (5.8-8.1); Sodium 135 mmol/L (136-145)
[2025-04-23 12:38] LABS: Troponin I 0.632 ng/mL (< 0.028)
[2025-04-23] MEDS ORDERED: Clopidogrel Bisulfate 300 MG TAB ONE (14:28)
[2025-04-23] MEDS ORDERED: Non-Formulary Item 1 EACH (Albuterol 200 PUFF Inh) INH PRN (16:28)
[2025-04-23] MEDS ORDERED: Guaifenesin DM 100-10/5 ML UDCUP PO PRN (16:33)
[2025-04-23] MEDS ORDERED: Acetaminophen 650 MG Suppository PR PRN (16:33)
[2025-04-23] MEDS ORDERED: Ondansetron ODT 4 MG TAB PO PRN (16:33)
[2025-04-23] MEDS ORDERED: Senokot S 8.6-50 MG TAB PO PRN (16:33)
[2025-04-23] MEDS ORDERED: Ondansetron PF 4 MG/2 ML Vial IVP PRN (16:33)
[2025-04-23 17:24] LABS: Bacteria/HPF None Seen HPF (None Seen); Bilirubin Negative (Negative); Blood, Urine Negative (Negative); CAUTI Indications for Culture Pelvic or flank pain; Glucose, Urine (Dipstick) 50 mg/dL (Negative); Ketone, Urine Negative (Negative); Leukocyte Negative Leu/uL (Negative); Nitrite Negative (Negative); Protein, Urine (Dipstick) 10 mg/dL (Neg-Trace); RBC/HPF 0-3 HPF (0-3); Specific Gravity, Urine 1.022 (1.002-1.036); Squamous Epithelial 0-3 HPF (0-3); Urobilinogen Normal mg/dL (Less than 2); WBC/HPF 0-3 HPF (0-3); pH, Urine 5.5 (5.0-9.0)
[2025-04-23 17:26] LABS: Clarity Cloudy (Clear)
[2025-04-23 17:27] LABS: Urine Culture Reflex No No
[2025-04-23 17:56] VITALS: BMI 23.3
[2025-04-23] MEDS: Pantoprazole 40 MG DR.TAB PO SCH (18:15)
[2025-04-23] MEDS: Potassium Chloride 20 MEQ in Lactated Ringer's 1,000 ML IV SCH (18:16)
[2025-04-23] MEDS: Mometasone 100 MCG/Formoterol 5 MCG 120 PUFF INHALER INH SCH (18:37)
[2025-04-23] MEDS: Albuterol 2.5 MG (3 mL) NEB NEB PRN (18:40)
[2025-04-23 21:52] LABS: Magnesium 1.8 mg/dL (1.6-2.6)
[2025-04-23 21:59] LABS: Critical Call Chem Troponin I RESULT DECREASING; Troponin I 0.342 ng/mL (< 0.028)
[2025-04-23 22:50] LABS: Troponin I 0.369 ng/mL (< 0.028)
[2025-04-23] MEDS: Ketorolac Tromethamine 30 MG (1 mL) VIAL IVP SCH (23:47)
[2025-04-23] MEDS: Acetaminophen 325 MG TAB PO PRN (23:47)
[2025-04-24] MEDS ORDERED: Albuterol 200 PUFF INH INH PRN (08:13)
[2025-04-24] MEDS ORDERED: hydrALAZINE 20 MG/ML VIAL SLOW IVP PRN (08:24)
[2025-04-24] MEDS: Amlodipine 5 MG TAB PO SCH (08:56)
[2025-04-24] MEDS: cloNIDine 0.1 MG TAB PO SCH (08:57)
[2025-04-24] MEDS: Pantoprazole 40 MG DR.TAB PO SCH (08:57)
[2025-04-24] MEDS: Aspirin 81 mg Enteric Coated Tablet PO SCH (08:57)
[2025-04-24] MEDS: Carvedilol 6.25 MG TAB PO SCH (08:57)
[2025-04-24] MEDS: Enoxaparin 30 MG (0.3 mL) SYRINGE SC SCH (08:57)
[2025-04-24] MEDS: Losartan 25 MG TAB PO SCH (09:00)
[2025-04-24 09:22] LABS: #Basophils 0.03 10x3/uL (0.0-0.2); #Eosinophils 0.06 10x3/uL (0.0-0.7); #Monocytes 0.81 10x3/uL (0.11-0.59); #Neutrophils 5.43 10x3/uL (1.40-6.50); %Basophils 0.4 % (0.0-1.0); %Eosinophils 0.8 % (0.0-10.0); %Lymphocytes 12.7 % (21.0-51.0); %Monocytes 11.1 % (0.0-10.0); %Neutrophils 74.7 % (42.0-75.0); Hemoglobin 15.1 g/dL (12.0-16.0); Mean Corpuscular HGB CONC 32.1 g/dL (32.0-36.0); Mean Corpuscular Hemoglobin 29.8 pg (27.0-31.0); Mean Corpuscular Volume 92.7 fL (78.0-98.0); Mean Platelet Volume 9.6 fL (7.4-10.4); Platelet Count 208 10x3/uL (130-400); RBC Distribution Width 13.5 % (11.5-14.5); Red Blood Cell (RBC) Count 5.07 mill/uL (4.20-5.40); White Blood Cell (WBC) Count 7.27 10x3/uL (4.8-10.8)
[2025-04-24 10:10] LABS: ALT (SGPT) 54 U/L (Less than 34); AST (SGOT) 77 U/L (11-34); Albumin 3.2 g/dL (3.1-4.5); Alkaline Phosphatase 151 U/L (40-110); Anion Gap 8 mmol/L (10-20); BUN (Urea Nitrogen) 22 mg/dL (9.8-20.1); Bilirubin, Total 0.4 mg/dL (0.3-1.2); Calc. Creatinine Clearance 81 mL/min (70-130); Calcium 8.4 mg/dL (7.8-10.44); Carbon Dioxide 30 mmol/L (23-31); Chloride 105 mmol/L (98-107); Estimated GFR 99; Glucose 105 mg/dL (80-115); Potassium 3.8 mmol/L (3.5-5.1); Protein, Total 7.2 g/dL (5.8-8.1); Sodium 139 mmol/L (136-145)
[2025-04-24 11:56] VITALS: TEMP 98.8
[2025-04-24 12:20] VITALS: BP 161/105
[2025-04-24 12:30] VITALS: BMI 23.3
[2025-04-24] MEDS ORDERED: Atorvastatin Calcium 40 MG TAB PO SCH (21:00)
[2025-04-25] MEDS ORDERED: Enoxaparin 40 MG (0.4 mL) SYRINGE SC SCH (09:00)
== END 2025-04-24 16:50 | disposition home or self-care (01) ==
LOC: ERS 10:53 → OBSVTOIN 15:24 → 2NO 15:24 → INTOOBSV 15:24
PROVIDERS: ADMIT Internal Medicine; ATTEND Internal Medicine
DX: E86.1 Hypovolemia (principal); E86.0 Dehydration; E78.5 Hyperlipidemia, unspecified; G93.40 Encephalopathy, unspecified; J96.11 Chronic respiratory failure with hypoxia; J44.9 Chronic obstructive pulmonary disease, unspecified; I11.0 Hypertensive heart disease with heart failure; I50.32 Chronic diastolic (congestive) heart failure; N17.9 Acute kidney failure, unspecified; R79.89 Other specified abnormal findings of blood chemistry; F17.200 Nicotine dependence, unspecified, uncomplicated; Z86.73 Personal history of transient ischemic attack (TIA), and cerebral infarction without residual deficits; Z85.820 Personal history of malignant melanoma of skin; Z90.49 Acquired absence of other specified parts of digestive tract; Z90.710 Acquired absence of both cervix and uterus; Z91.041 Radiographic dye allergy status; Z88.0 Allergy status to penicillin; Z79.51 Long term (current) use of inhaled steroids; Z79.82 Long term (current) use of aspirin; Z79.899 Other long term (current) drug therapy
CPT/HCPCS: 36415; 70450; 71045; 72125; 80053; 81001; 83605; 83735; 83880; 84484; 85025; 85610; 85730; 87040; 87086; 93005; 94640; 94760; 96360; 96361; 96372; 96374; G0378; J1650; J1885; J3480; J7120; J7611

== ENCOUNTER 2025-05-21 22:32 | Inpatient (IN) | payer OTHER, MEDICAID ==
[2025-05-21] MEDS ORDERED: Acetaminophen 500 MG TAB ONE (23:26)
[2025-05-22 02:11] LABS: #Basophils 0.04 10x3/uL (0.0-0.2); #Eosinophils Less than 0.03 10x3/uL (0.0-0.7); #Monocytes 1.80 10x3/uL (0.11-0.59); #Neutrophils 7.60 10x3/uL (1.40-6.50); %Basophils 0.4 % (0.0-1.0); %Eosinophils 0.0 % (0.0-10.0); %Lymphocytes 16.1 % (21.0-51.0); %Monocytes 15.9 % (0.0-10.0); %Neutrophils 67.1 % (42.0-75.0); Hematocrit 47.7 % (36.0-47.0); Hemoglobin 15.9 g/dL (12.0-16.0); Mean Corpuscular Hemoglobin 30.1 pg (27.0-31.0); Mean Corpuscular Volume 90.3 fL (78.0-98.0); Platelet Count 351 10x3/uL (130-400); Red Blood Cell (RBC) Count 5.28 mill/uL (4.20-5.40); White Blood Cell (WBC) Count 11.32 10x3/uL (4.8-10.8)
[2025-05-22 02:31] LABS: ALT (SGPT) 62 U/L (Less than 34); AST (SGOT) 65 U/L (11-34); Albumin 3.1 g/dL (3.1-4.5); Alkaline Phosphatase 161 U/L (40-110); Anion Gap 17 mmol/L (10-20); BUN (Urea Nitrogen) 45 mg/dL (9.8-20.1); Bilirubin, Total 0.8 mg/dL (0.3-1.2); Calc. Creatinine Clearance 0 mL/min (70-130); Calcium 8.8 mg/dL (7.8-10.44); Carbon Dioxide 23 mmol/L (23-31); Chloride 99 mmol/L (98-107); Globulin 4.3 g/dL (2.4-3.5); Glucose 113 mg/dL (80-115); Magnesium 2.1 mg/dL (1.6-2.6); Potassium 3.3 mmol/L (3.5-5.1); Sodium 136 mmol/L (136-145)
[2025-05-22 03:07] LABS: Troponin I 0.297 ng/mL (< 0.028)
[2025-05-22] MEDS ORDERED: Calcium Carbonate 500 MG ChewTAB PO PRN (03:11)
[2025-05-22] MEDS ORDERED: Acetaminophen 325 MG TAB PO PRN (03:11)
[2025-05-22] MEDS ORDERED: Ondansetron PF 4 MG/2 ML Vial IVP PRN (03:11)
[2025-05-22] MEDS ORDERED: clonazePAM 0.5 MG TAB PO PRN (03:13)
[2025-05-22] MEDS ORDERED: Electrolyte Replacement Protocol 1 EACH FS PRN (03:15)
[2025-05-22 05:50] VITALS: BMI 21.0
[2025-05-22] MEDS: Mometasone 100 MCG/Formoterol 5 MCG 120 PUFF INHALER INH SCH (06:59)
[2025-05-22] MEDS: Multivitamin W/ Minerals 1 TAB PO SCH (08:34)
[2025-05-22] MEDS: Losartan 25 MG TAB PO SCH (08:34)
[2025-05-22] MEDS: Carvedilol 6.25 MG TAB PO SCH (08:34)
[2025-05-22] MEDS: Aspirin 81 mg Enteric Coated Tablet PO SCH (08:34)
[2025-05-22 09:11] LABS: Troponin I 0.165 ng/mL (< 0.028)
[2025-05-22 10:36] LABS: Troponin I 0.161 ng/mL (< 0.028)
[2025-05-22] MEDS: Albuterol 200 PUFF (6.7GM INHALER) INH PRN (19:16)
[2025-05-22] MEDS: Cyclobenzaprine 10 MG TAB PO SCH (21:03)
[2025-05-22] MEDS: Melatonin 3 MG TAB PO PRN (21:06)
[2025-05-22] MEDS: Albuterol 200 PUFF (6.7GM INHALER) INH SCH ×2 (23:55→23:57)
[2025-05-23 03:01] LABS: #Basophils 0.03 10x3/uL (0.0-0.2); #Eosinophils 0.18 10x3/uL (0.0-0.7); #Monocytes 1.17 10x3/uL (0.11-0.59); #Neutrophils 4.11 10x3/uL (1.40-6.50); %Basophils 0.4 % (0.0-1.0); %Eosinophils 2.4 % (0.0-10.0); %Lymphocytes 26.4 % (21.0-51.0); %Monocytes 15.7 % (0.0-10.0); %Neutrophils 55.0 % (42.0-75.0); Hematocrit 44.7 % (36.0-47.0); Hemoglobin 13.9 g/dL (12.0-16.0); Mean Corpuscular Hemoglobin 30.0 pg (27.0-31.0); Mean Corpuscular Volume 96.5 fL (78.0-98.0); Platelet Count 242 10x3/uL (130-400); Red Blood Cell (RBC) Count 4.63 mill/uL (4.20-5.40); White Blood Cell (WBC) Count 7.47 10x3/uL (4.8-10.8)
[2025-05-23 03:35] LABS: ALT (SGPT) 47 U/L (Less than 34); AST (SGOT) 53 U/L (11-34); Albumin 2.6 g/dL (3.1-4.5); Alkaline Phosphatase 133 U/L (40-110); Anion Gap 10 mmol/L (10-20); BUN (Urea Nitrogen) 35 mg/dL (9.8-20.1); Bilirubin, Total 0.4 mg/dL (0.3-1.2); Calc. Creatinine Clearance 55 mL/min (70-130); Calcium 7.9 mg/dL (7.8-10.44); Carbon Dioxide 25 mmol/L (23-31); Chloride 112 mmol/L (98-107); Globulin 3.8 g/dL (2.4-3.5); Glucose 101 mg/dL (80-115); Magnesium 1.9 mg/dL (1.6-2.6); Potassium 4.0 mmol/L (3.5-5.1); Sodium 143 mmol/L (136-145)
[2025-05-23] MEDS: Magnesium 2 GM/50 ML(in water) 2 GM in Premix 1 BAG IVPB SCH (08:42)
[2025-05-23 11:08] VITALS: BMI 22.9
[2025-05-23] MEDS ORDERED: Dabrafenib Mesylate [Tafinlar] 75 MG Capsule PO SCH (21:00)
[2025-05-24 07:28] LABS: ALT (SGPT) 52 U/L (Less than 34); AST (SGOT) 68 U/L (11-34); Albumin 2.8 g/dL (3.1-4.5); Alkaline Phosphatase 144 U/L (40-110); Anion Gap 10 mmol/L (10-20); BUN (Urea Nitrogen) 17 mg/dL (9.8-20.1); Bilirubin, Total 0.3 mg/dL (0.3-1.2); Calc. Creatinine Clearance 86 mL/min (70-130); Calcium 8.7 mg/dL (7.8-10.44); Carbon Dioxide 25 mmol/L (23-31); Chloride 108 mmol/L (98-107); Globulin 3.7 g/dL (2.4-3.5); Glucose 93 mg/dL (80-115); Magnesium 1.8 mg/dL (1.6-2.6); Potassium 3.8 mmol/L (3.5-5.1); Sodium 139 mmol/L (136-145)
[2025-05-24] MEDS: Magnesium 2 GM/50 ML(in water) 2 GM in Premix 1 BAG IVPB SCH (08:30)
[2025-05-24] MEDS ORDERED: Trametinib Dimethyl Sulfoxide [Mekinist] PO SCH (09:00)
[2025-05-24] MEDS ORDERED: Trametinib Dimethyl Sulfoxide [Mekinist] 2 MG Tablet PO SCH (09:00)
[2025-05-24 12:26] VITALS: BP 150/89; TEMP 98.4
== END 2025-05-24 15:19 | disposition home or self-care (01) | DRG 683 ==
LOC: ERS 22:32 → 2SE 05-22 02:56 → OBSVTOIN 05-22 14:30
PROVIDERS: ADMIT Student in an Organized Health Care Education/Training Program; ATTEND Internal Medicine
DX: N17.9 Acute kidney failure, unspecified (principal); I24.89 Other forms of acute ischemic heart disease; M47.898 Other spondylosis, sacral and sacrococcygeal region; E86.0 Dehydration; B18.2 Chronic viral hepatitis C; I10 Essential (primary) hypertension; J42 Unspecified chronic bronchitis; J43.9 Emphysema, unspecified; F12.10 Cannabis abuse, uncomplicated; F17.210 Nicotine dependence, cigarettes, uncomplicated; R74.01 Elevation of levels of liver transaminase levels; C43.9 Malignant melanoma of skin, unspecified; E87.6 Hypokalemia; W19.XXXA Unspecified fall, initial encounter; F32.A Depression, unspecified; Z86.73 Personal history of transient ischemic attack (TIA), and cerebral infarction without residual deficits; Z99.81 Dependence on supplemental oxygen; Z98.890 Other specified postprocedural states; Z91.041 Radiographic dye allergy status; Z88.0 Allergy status to penicillin; Z79.899 Other long term (current) drug therapy; Z98.51 Tubal ligation status; Z79.891 Long term (current) use of opiate analgesic
CPT/HCPCS: 36415; 70450; 71045; 71250; 72125; 72148; 74177; 80053; 83735; 83880; 84484; 85025; 93005; 94640; 96360; 96361; 96374; G0378; J2060; J3475; J7030; J7620